=== PATIENT | female | born 1955 | race Caucasian/White ===

== ENCOUNTER 2021-10-28 10:21 | Outpatient (CLI) | payer MEDICARE, OTHER, SELFPAY ==
[2021-10-28 13:31] LABS: Albumin* 4.6 g/dL (3.3-5.0); Chloride* 105 mmol/L (96-114); Potassium* 4.6 mmol/L (3.6-5.1); Sodium* 136 mmol/L (135-149)
[2021-10-28 13:33] LABS: Carbon Dioxide* 21 mmol/L (20-32); Cholesterol* 160 mg/dL (90-199); Creatinine* 0.6 mg/dL (0.5-1.5); Estimated Glomerular Filt Rate 100 ml/min
[2021-10-28 13:34] LABS: Alanine Aminotransferase* 24 U/L (4-35); Alkaline Phosphatase* 92 U/L (40-150); Aspartate Amino Transferase* 21 U/L (12-35); Bilirubin Total* 0.4 mg/dL (0.1-1.5); Blood Urea Nitrogen* 17 mg/dL (7-30); Calcium* 10.2 mg/dL (8.4-10.6); Glucose* 102 mg/dL (60-115); Total Protein* 7.1 g/dL (6.0-8.3); Triglycerides* 214 mg/dL (40-149)
[2021-10-28 13:35] LABS: HDL Cholesterol* 50 mg/dL (>=50); LDL Cholesterol Calculated 67 mg/dL (<100)
[2021-10-28 14:07] LABS: TSH With Reflex to FT4* 0.858 uIU/mL (0.270-4.200)
[2021-10-28 14:22] LABS: Vitamin B12* 295 pg/mL (243-894)
== END 2021-10-28 10:22 | disposition home or self-care (01) ==
PROVIDERS: PCP Physician Assistant Medical; Visit Provider Physician Assistant Medical
DX: Z00.00 Encounter for general adult medical examination without abnormal findings (principal); R20.2 Paresthesia of skin; E78.5 Hyperlipidemia, unspecified; I10 Essential (primary) hypertension; Z13.29 Encounter for screening for other suspected endocrine disorder
CPT/HCPCS: 80053; 80061; 82607; 84443

== ENCOUNTER 2021-11-18 08:12 | Outpatient (CLI) | payer MEDICARE, OTHER, SELFPAY ==
[2021-11-18 13:12] LABS: Basophils Absolute Auto 0.05 K/uL (0.00-0.30); Basophils Percent Auto 0.6 % (0.0-3.0); Eosinophils Absolute Auto 0.27 K/uL (0.00-0.50); Eosinophils Percent Auto 3.2 % (0.0-7.0); Hematocrit 47.9 % (33.0-51.0); Hemoglobin* 15.4 gm/dL (12.0-16.0); Immature Granulocytes Abs Auto 0.09 K/uL (0.00-0.30); Lymphocytes Absolute Auto 2.53 K/uL (0.90-2.90); Lymphocytes Percent Auto 29.6 % (20-44); Mean Corpuscular HGB Conc 32 gm/dL (32-36); Mean Corpuscular Hemoglobin 29 pg (26-34); Mean Corpuscular Volume 89 fL (80-100); Neutrophils Absolute Auto 4.93 K/uL (1.7-7.0); Neutrophils Percent Auto 57.5 % (42.0-72.0); Platelet Count* 135 K/uL (140-440); RDW Coefficient of Variation % 14.3 % (11.5-15.5); Red Blood Count 5.38 m/uL (4.00-5.20); White Blood Count* 8.55 K/uL (4.50-11.00)
[2021-11-18 13:13] LABS: Slide Review Reflex No
== END 2021-11-18 08:13 | disposition home or self-care (01) ==
PROVIDERS: PCP Physician Assistant Medical; Visit Provider Physician Assistant Medical
DX: D69.9 Hemorrhagic condition, unspecified (principal)
CPT/HCPCS: 85025; 86703; 86803

== ENCOUNTER 2021-12-28 08:45 | Outpatient (CLI) | payer MEDICARE, OTHER, SELFPAY ==
[2021-12-28 15:09] LABS: HIV 1/2/P24 Combo Screen* Negative (Negative)
[2021-12-28 15:20] LABS: Hepatitis C Virus Antibody* Negative (Negative)
== END 2021-12-28 08:46 | disposition home or self-care (01) ==
LOC: FBOREF 09:47
PROVIDERS: PCP Physician Assistant Medical; Visit Provider Physician Assistant Medical
DX: D69.9 Hemorrhagic condition, unspecified (principal)
CPT/HCPCS: 86703; 86803

== ENCOUNTER 2022-03-03 12:04 | Outpatient (CLI) | payer MEDICARE, OTHER, SELFPAY ==
[2022-03-03 22:06] LABS: Albumin* 4.6 g/dL (3.3-5.0); Chloride* 106 mmol/L (96-114); Potassium* 4.9 mmol/L (3.6-5.1); Sodium* 142 mmol/L (135-149)
[2022-03-03 22:09] LABS: Alanine Aminotransferase* 29 U/L (4-35); Alkaline Phosphatase* 87 U/L (40-150); Aspartate Amino Transferase* 21 U/L (12-35); Bilirubin Total* 0.6 mg/dL (0.1-1.5); Blood Urea Nitrogen* 17 mg/dL (7-30); Carbon Dioxide* 28 mmol/L (20-32); Creatinine* 0.6 mg/dL (0.5-1.5); Estimated Glomerular Filt Rate 99 ml/min; Glucose* 105 mg/dL (60-115); Total Protein* 7.4 g/dL (6.0-8.3)
[2022-03-03 22:10] LABS: Calcium* 10.3 mg/dL (8.4-10.6)
== END 2022-03-03 12:05 | disposition home or self-care (01) ==
PROVIDERS: PCP Physician Assistant Medical; Visit Provider Physician Assistant Medical
DX: D69.6 Thrombocytopenia, unspecified (principal); I10 Essential (primary) hypertension
CPT/HCPCS: 80053

== ENCOUNTER 2022-11-08 10:45 | Outpatient (CLI) | payer MEDICARE, SELFPAY | END 2022-11-08 10:46 | disposition home or self-care (01) | LOC: NFLDREF 11-09 11:42 | PROVIDERS: PCP Physician Assistant Medical; Referring Provider Physician Assistant Medical; Visit Provider Physician Assistant Medical | DX: E78.5 Hyperlipidemia, unspecified (principal); I10 Essential (primary) hypertension; E66.01 Morbid (severe) obesity due to excess calories; D69.6 Thrombocytopenia, unspecified; Z13.820 Encounter for screening for osteoporosis; Z78.0 Asymptomatic menopausal state; R82.90 Unspecified abnormal findings in urine | CPT/HCPCS: 80053; 80061; 81001; 84443; 85027; 87086 ==

== ENCOUNTER 2023-06-21 09:46 | Outpatient (CLI) | payer MEDICARE, SELFPAY ==
--- OUTSIDE RECORDS SUMMARY | 2023-06-21 09:55 | XMS_ITS | Encounter Summary ---
Author Name Unknown Organization [place] Address [address] [facility] [place] [address] Care Team Providers Care Edge Burnisher Uppers Name Role Phone Nelson Chan MD Primary Care Provider + [phone] Nelson Chan MD Unavailable [phone] Sage Kincaid MD Unavailable [phone] Chris Mcdaniel PA-C Unavailable +[phone] Chris Mcdaniel PA-C Unavailable +[phone] Nelson Chan MD Unavailable [phone] Reason for Visit * Reason Onset Date Comments Symptoms 01/14/2019 Encounter Details Date Type Department Care Team (Late st Contact Info) Description 01/14/2019 [facility] [address] [address] Nelson Chan MD [address] [address] Symptoms Social History Tobacco Use Types Packs/Day Years Used Date Smoking Tobacco: Some Days Cigarettes 1 40 Started: 10/07/2012 Smokeless Tobacco: Never Alcohol Use Standard Drinks/Week Comments No 0 (1 standard drink = 0.6 oz pur e alcohol) PHQ-2 Answer Date Recorded PHQ-2 Score 0 02/13/2018 Sex and Gender Information Value Date Recorded Sex Assigned at Female 05/29/2018 3:24 PM CDT Gender Identity Female 05/29/2018 3:24 PM CDT Sexual Orientation Straight 05/29/2018 3: 25 PM CDT documented as of this encounter Plan of Treatment Not on file documented as of this encounter Visit Diagnoses Not on filedocumented in this encounter Care Teams Edge Burnisher Uppers Relationship Specialty Start Date End Date Nelson Chan MD [address] [place] [address] PCP - General 06/18/04 Nelson Chan MD [address] [place] [address] Assigned PCP 08/25/19 01/21/22 [place] [address] [facility] [address] [place] [address] Assigned Sleep Provider 11/29/1912/20 Chris Mcdaniel PA-C [address] [place] [address] Assigned Sleep Provider 04/22/20 Chris Mcdaniel PA-C [address] [place] [address] Assigned Neuroscience Provider 04/22/20 02/11/22 Nelson Chan MD [address] [place] [address] Assigned PCP 04/02/22 10/07/22 documented as of this encounter
--- OUTSIDE RECORDS SUMMARY | 2023-06-21 09:55 | XMS_ITS | Encounter Summary ---
Author Name Unknown Organization [place] Address [address] [facility] [place] [address] Care Team Providers Care Talent Recruiter Name Role Phone Nelson Chan MD Primary Care Provider + [phone] Nelson Chan MD Unavailable [phone] Sage Kincaid MD Unavailable [phone] Chris Mcdaniel PA-C Unavailable +[phone] Chris Mcdaniel PA-C Unavailable +[phone] Nelson Chan MD Unavailable [phone] Reason for Visit * Reason Onset Date Comments Patient Request 07/19/2019 [facility] for trans erik of cpap prescription and sleep study Encounter Details Date Type Department Care Team (Late st Contact Info) Description 07/19/2019 Telephone [facility] Candy Kitchen [address] [facility] [address] [place] [address] [place] [address] [facility] [address] [place] [address] Patient Request ([facility] for transfer of cpap prescription and sleep study ) Social History Tobacco Use Types Packs/Day Years [...] PM CDT documented as of this encounter Miscellaneous Notes * Telephone Encounter - Alex Pickard - 07/19/2019 1:52 PM CDT Reason for call: Other Patient called regarding (reason for call): call back and prescription Additional comments: Patient has switched insurance and is requesting her cpap supply prescription and a copy of her sleep study be sent to [facility]( ). She has most recently seen Dr. Kincaid on 05-31-18 Phone number to reach patient: Home number on file [phone] (home) Best Time: any Can we leave a detailed message on this number? YES Travel screening: Negative documented in this encounter Plan of Treatment Not on file documented as of this encounter Visit Diagnoses Not on filedocumented in this encounter Care Teams Talent Recruiter Relationship Specialty Start Date End Date Nelson Chan MD [address] [address] PCP - General 06/18/04 Nelson Chan MD [address] [place] [address] Assigned PCP 08/25/19 01/21/22 [place] [address] [place] [address] Assigned Sleep Provider 11/29/1912/20 Chris Mcdaniel PA-C [address] [place] [address] Assigned Sleep Provider 04/22/20 Chris Mcdaniel PA-C [address] [place] [address] Assigned Neuroscience Provider 04/22/20 02/11/22 Nelson Chan MD [address] [place] [address] Assigned PCP 04/02/22 10/07/22 documented as of this encounter
--- OUTSIDE RECORDS SUMMARY | 2023-06-21 09:55 | XMS_ITS | Encounter Summary ---
Author Name Unknown Organization [place] Address [address] [facility] [place] [address] Care Team Providers Care Baby Nurse Name Role Phone Nelson Chan MD Primary Care Provider + [phone] Nelson Chan MD Unavailable [phone] Chris Mcdaniel PA-C Unavailable +[phone] Chris Mcdaniel PA-C Unavailable +[phone] Nelson Chan MD Unavailable [phone] Reason for Visit * Reason Comments Medication Refill Encounter Details Date Type Department Care Team (Late st Contact Info) Description 12/31/2019 Refill [facility] [address] [address] Nelson Chan MD [address] [address] Medication Refill Social History Tobacco Use Types Packs/Day Years Used Date Smoking Tobacco: Former Cigarettes 1 40 0 10/07/2012 - 10/08/2019 Smokeless Tobacco: Never Alcohol Use Standard Drinks/Week Comments No 0 (1 standard drink = 0.6 oz pur e alcohol) PHQ-2 Answer Date Recorded PHQ-2 Score 0 08/22/2019 Sex and Gender Information Value Date Recorded Sex Assigned at Female 05/29/2018 3:24 PM CDT Gender Identity Female 05/29/2018 3:24 PM CDT Sexual Orientation Straight 05/29/2018 3: 25 PM CDT COVID-19 Exposure Response Date Recorded In the last month, have you been in contact with someone who was confirmed or suspected to have Coronavirus / COVID-19? No / Unsure 12/31/2019 5:41 PM APPLICATION HELPER documented as of this encounter Plan of Treatment Not on file documented as of this encounter Visit Diagnoses Diagnosis Tobacco abuse Tobacco use disorder documented in this encounter Care Teams Baby Nurse Relationship Specialty Start Date End Date Nelson Chan MD [address] [place] [address] PCP - General 06/18/04 Nelson Chan MD [address] [place] [address] Assigned PCP 08/25/19 01/21/22 Chris Mcdaniel PA-C [address] [place] [address] Assigned Sleep Provider 04/22/20 Chris Mcdaniel PA-C [address] [place] [address] Assigned Neuroscience Provider 04/22/20 02/11/22 Nelson Chan MD [address] [place] [address] Assigned PCP 04/02/22 10/07/22 documented as of this encounter
--- OUTSIDE RECORDS SUMMARY | 2023-06-21 09:55 | XMS_ITS | Encounter Summary ---
Author Name Unknown Organization [place] Address [address] [facility] [place] [address] Care Team Providers Care News Videotape Editor Name Role Phone Nelson Chan MD Primary Care Provider + [phone] Nelson Chan MD Unavailable + [phone] Nelson Chan MD Unavailable [phone] Nelson Chan MD Unavailable [phone] Sage Kincaid MD Unavailable [phone] Chris Mcdaniel PA-C Unavailable +[phone] Chris Mcdaniel PA-C Unavailable [phone] Nelson Chan MD Unavailable [phone] Encounter Details Date Type Department Care Team (Late st Contact Info) Description 02/09/2017 [facility] [address] [address] Nelson Chan MD [address] [address] Social History Tobacco Use Types Packs/Day Years Used Date Smoking Tobacco: Former Cigarettes 1 40 S tarted: 10/07/2012 Smokeless Tobacco: Never Alcohol Use Standard Drinks/Week Comments No 0 (1 standard drink = 0.6 oz pur e alcohol) Sex and Gender Information Value Date Recorded Sex Assigned at Female 05/29/2018 3:24 PM CDT Gender Identity Female 05/29/2018 3:24 PM CDT Sexual Orientation Straight 05/29/2018 3: 25 PM CDT documented as of this encounter Plan of Treatment Not on file documented as of this encounter Visit Diagnoses Not on filedocumented in this encounter Care Teams News Videotape Editor Relationship Specialty Start Date End Date Nelson Chan MD [address] [address] PCP - General 06/18/04 Nelson Chan MD [address] [address] PCP - Assigned PCP 02/25/13 04/10/18 Nelson Chan MD [address] [address] Assigned PCP 02/25/13 06/30/18 Nelson Chan MD [address] [place] [address] Assigned PCP 08/25/19 01/21/22 [place] [address] [place] [address] Assigned Sleep Provider 11/29/1912/20 Chris Mcdaniel PA-C [address] [facility] [place] [address] Assigned Sleep Provider 04/22/20 Chris Mcdaniel PA-C [address] [facility] [address] [place] [address] Assigned Neuroscience Provider 04/22/20 02/11/22 Nelson Chan MD [address] [address] Assigned PCP 04/02/22 10/07/22 documented as of this encounter
--- OUTSIDE RECORDS SUMMARY | 2023-06-21 09:55 | XMS_ITS | Encounter Summary ---
Author Name Unknown Organization [place] Address [address] [facility] [place] [address] Care Team Providers Care Ground Support Equipment Mechanic Name Role Phone Nelson Chan MD Primary Care Provider + [phone] Nelson Chan MD Unavailable [phone] Nelson Chan MD Unavailable [phone] Nelson Chan MD Unavailable +[phone] Sage Kincaid MD Unavailable [phone] Chris Mcdaniel PA-C Unavailable [phone] Chris Mcdaniel PA-C Unavailable [phone] Nelson Chan MD Unavailable [phone] Reason for Visit * Reason Onset Date Comments Refill Request 05/31/2015 Encounter Details Date Type Department Care Team (Late st Contact Info) Description 05/31/2015 MyC Refill [facility] [address] [address] Nelson Chan MD [address] [id number] Refill Request Social History Tobacco Use Types Packs/Day Years [...] encounter Miscellaneous Notes * Telephone Encounter - Judy Jacques CMA - 06/01/2015 11:02 AM CDTMessage from [employer]: Original authorizing provider: MD Jeanne Washington would like a refill of the following medications: varenicline (CHANTIX STARTING MONTH ) 0.5 MG X 11 & 1 MG X 42 tablet [Nelson Chan MD] Preferred pharmacy: [facility] #[id number] [place] [address] Comment: Hi I'm sorry. I asked for the wrong one. I need the starter pack. documented in this encounter Plan of Treatment Not on file documented as of this encounter Visit Diagnoses Diagnosis Tobacco abuse Tobacco use disorder documented in this encounter Care Teams Ground Support Equipment Mechanic Relationship Specialty Start Date End Date Nelson Chan MD [address] [place] [address] PCP - General 06/18/04 Nelson Chan MD [address] [address] PCP - Assigned PCP 02/25/13 04/10/18 Nelson Chan MD [address] [address] Assigned PCP 02/25/13 06/30/18 Nelson Chan MD [address] [place] [address] Assigned PCP 08/25/19 01/21/22 [place] [address] [place] [address] Assigned Sleep Provider 11/29/1912/20 Chris Mcdaniel PA-C [address] [place] [address] Assigned Sleep Provider 04/22/20 Chris Mcdaniel PA-C [address] [place] [address] Assigned Neuroscience Provider 04/22/20 02/11/22 Nelson Chan MD [address] [place] [address] Assigned PCP 04/02/22 10/07/22 documented as of this encounter
--- OUTSIDE RECORDS SUMMARY | 2023-06-21 09:55 | XMS_ITS | Encounter Summary ---
Author Name Unknown Organization [place] Address [address] [facility] [place] [address] Care Team Providers Care Advice Clerk Name Role Phone Nelson Chan MD Primary Care Provider + [phone] Nelson Chan MD Unavailable + [phone] Nelson Chan MD Unavailable [phone] Nelson Chan MD Unavailable [phone] Sage Kincaid MD Unavailable [phone] Chris Mcdaniel PA-C Unavailable +[phone] Chris Mcdaniel PA-C Unavailable +[phone] Nelson Chan MD Unavailable [phone] Reason for Visit * Reason Onset Date Comments other 03/27/2018 Ed with [place] [employer] / dme supplier for bipap machine said their is an error in the perscription; please call back to advise at [phone] Encounter Details Date Type Department Care Team (Late st Contact Info) Description 03/27/2018 Telephone [facility] [address] [facility] [address] [place] [address] [place] [address] other (Ed with [employer] / dme supplier for bipap machine said their is an error in the perscription; please call back to advise at [phone]) Social History Tobacco Use Types Packs/Day Years [...] encounter Miscellaneous Notes * Telephone Encounter - Vamsi Uribe - 03/27/2018 10:30 AM CST Reason for call: Other Patient called regarding (reason for call): Ed with [employer] / dme supplier for bipap machine said their is an error in the perscription; please call back to advise at [phone] Additional comments: Phone number to reach patient: Other phone number: [phone] Best Time: Can we leave a detailed message on this number? Not Applicable SHING AREA OPERATOR documented in this encounter Plan of Treatment Not on file documented as of this encounter Visit Diagnoses Not on filedocumented in this encounter Care Teams Advice Clerk Relationship Specialty Start Date End Date Nelson Chan MD [address] [address] PCP - General 06/18/04 Nelson Chan MD [address] [address] PCP - Assigned PCP 02/25/13 04/10/18 Nelson Chan MD [address] [place] [address], [place] [address] Assigned PCP 02/25/13 06/30/18 Nelson Chan MD [address] [place] [address] Assigned PCP 08/25/19 01/21/22 [place] [address] [place] [address] Assigned Sleep Provider 11/29/1912/20 Chris Mcdaniel PA-C [address] [place] [address] Assigned Sleep Provider 04/22/20 Chris Mcdaniel PA-C [address] [place] [address] Assigned Neuroscience Provider 04/22/20 02/11/22 Nelson Chan MD [address] [place] [address] Assigned PCP 04/02/22 10/07/22 documented as of this encounter
--- OUTSIDE RECORDS SUMMARY | 2023-06-21 09:55 | XMS_ITS | Referral Summary ---
Author Name Unknown Organization [place] Address [address] [facility] [place] [address] Care Team Providers Care Nailer Operator Name Role Phone Nelson Topete MD Primary Care Provider [phone] Allergies Active Allergy Reactions Criticality Noted Date Comments No Known Allergies 01/22/2002 Medications Medication Sig Dispensed Refills Start Date End Date Status celecoxib (CELEBREX) 200 MG capsuleIndications:Sp inal stenosis, lumbar region, without neurogenic claudication Take 1 capsule (200 mg) by mouth daily 30 capsule 11 01/01/2020 Active CHANTIX CONTINUING MONTH ANGELINA 1 MG tabletIndications:Tob acco abuse Take 1 tablet (1 mg) by mouth 2 times daily 56 tablet 12/31/2019 Active lisinopril-hydrochlor othiazide (ZESTORETIC) 10-12.5 MG tablet Take 1 tablet by mouth daily 07/20/2020 Active atorvastatin (LIPITOR) 10 MG tablet 08/03/2020 Active omeprazole (PRILOSEC) [address] capsuleIndications:Ga stroesophageal reflux disease without esophagitis TAKE 1 CAPSULE BY MOUTH DAILY 90 capsule 03/17/2021 Active Active Problems Problem Noted Date Diagnosed Date Morbid obesity 03/08/2018 Acute appendicitis 10/25/2013 Smoker 02/26/2012 THEODORE (obstructive sleep apnea) 06/01/2011 Diverticulosis of colon 06/01/2011 Advanced directives, counseling/discussion 01/12 Overview: Advance Directive Problem List Overview: Name Relationship Phone Primary Health Care Agent Alternative Health Care Agent Discussed advance care planning with patient; information given to patient to review. 01/12/2011 CARDIOVASCULAR SCREENING; LDL GOAL LESS THAN 160 12/06/2009 Menopausal and postmenopausal disorder 3 Overview: Problem list name updated by automated process. Provider to review Spinal stenosis, lumbar ofelia on, without neurogenic claudication 08/26/2002 Tobacco abuse 01/21/2002 Esophageal reflux 01/21/2002 Resolved Problems Problem Noted Date Diagnosed Date Resolved Date Acute pain of left shoulder 12/16/2019 02/27/2020 Rotator cuff impingement syn drome of left shoulder 12/16/2019 02/27/2020 Immunizations Name Administration Dates Next Due TDAP Vaccine (Adacel) 08/05/2008 Social History Tobacco Use Types Packs/Day Years Used Date Smoking Tobacco: Every Day Cigarettes 1 40 Started: 10/07/2012; Last attempted to quit: 10/08/2019 Smokeless Tobacco: Never Tobacco Cessation:Ready to Q uit: Yes; Counseling Given: Yes Alcohol Use Standard Drinks/Week Comments No 0 (1 standard drink = 0.6 oz pur e alcohol) PHQ-2 Answer Date Recorded PHQ-2 Score 0 08/22/2019 Adolescent Education Answer Date Record ed Getting School Help Needed Not on file 11/20 Sex and Gender Information Value Date Recorded Sex Assigned at Female 05/29/2018 3:24 PM CDT Gender Identity Female 05/29/2018 3:24 PM CDT Sexual Orientation Straight 05/29/2018 3: 25 PM CDT Last Filed Vital Signs Vital Sign Reading Time Taken Comments Blood Pressure 170/100 01/09/2020 2:48 PM FUR EXAMINER Pulse 100 01/09/2020 2:48 PM FUR EXAMINER Temperature 36.6 ??C (97.9 ??F) 01/09/2020 2:48 PM CS T Respiratory Rate 18 01/09/2020 2:48 PM FUR EXAMINER Oxygen Saturation 97% 01/09/2020 2:48 PM FUR EXAMINER Inhaled Oxygen Concentration - - Weight 136.1 kg (300 lb) 08/06/2020 9:00 AM CDT Height 162.6 cm (5' 4) 08/06/2020 9:00 AM CDT Body Mass Index 51.49 08/06/2020 9:00 AM CDT Plan of Treatment Not on file Procedures Procedure Name Priority Date/Time Associated Diagnosis Comments CT CHEST/ABDOMEN/PELVIS W CONTRAST Routine 01/19/2022 3:35 PM FUR EXAMINER MA SCREENING DIGITAL BILATERAL Routine 05/08/2021 10:22 PM CDT Visit for screening mammogram COLONOSCOPY Routine 01/08/2020 11:37 AM FUR EXAMINER BASIC METABOLIC PANEL STAT 02/02/2018 12:00 AM FUR EXAMINER PAP IMAGED THIN LAYER SCREEN Routine 06/06/2014 12:00 AM CDT Screening for malignant neoplasm of cervix Routine general medical examination at a [facility] care facility LIPID REFLEX TO DIRECT LDL PANEL Routine 05/30/2011 9:48 AM CDT CARDIOVASCULAR SCREENING; LDL GOAL LESS THAN 160 DX BONE DENSITY Routine 01/12/2011 Osteopenia from Last 3 Months or Most Recently Relevant to Health Maintenance Results * *MA Screening Digital Bilateral (05/08/2021 10:22 PM CDT) Anatomical Region Laterality Modality Breast Bilateral Mammography Narrative 05/10/2021 10:34 AM CDT BILATERAL FULL FIELD DIGITAL SCREENING MAMMOGRAM Performed on: 05/08/21 Compared to: 12/28/2019, 11/19/2018, 11/13/2017, and 08/07/2016 Technique: This study was evaluated with the assistance of Computer-Aided Detection. Findings: The breasts have scattered areas of fibroglandular density. ?? There is no radiographic evidence of malignancy. IMPRESSION: ACR BI-RADS Category 1: Negative RECOMMENDED FOLLOW-UP: Annual routine screening mammogram The results and recommendations of this examination will be communicated to the patient. Nelson Topete MD IMG MAMMOGRAPHY OR DERABLES * COLONOSCOPY (01/08/2020 11:37 AM FUR EXAMINER) COLONOSCOPY [facility] Patient Name: Britni Avila ?? Procedure Date: 01/08/2020 11:37 AM ? Date of : 1955 ? Admit Type: Outpatient Age: 64 ? Gender: Female Attending MD: Edmundo Mabry MD ?? Total Sedation Time: 17_minutes continuous bedside 1:1 Instrument Name: 223 - Adult Colonoscope Procedure: ?Colonoscopy Indications: ?High risk colon cancer surveillance: Personal ?history of colonic polyps Providers: ?Edmundo Mabry MD (Doctor) Referring MD: ? Medicines: ?Propofol per Anesthesia Complications: ?No immediate complications. Procedure: ?Pre-Anesthesia Assessment: ?- Prior to the procedure, a History and Physical ?was performed, and patient medications and ?allergies were reviewed. The patient is competent. ?The risks and benefits of the procedure and the ?sedation options and risks were discussed with the ?patient. All questions were answered and informed ?consent was obtained. Patient identification and ?proposed procedure were verified by the physician ?in the pre-procedure area. Mental Status ?Examination: alert and oriented. Airway ?Examination: normal oropharyngeal airway and neck ?mobility. Respiratory Examination: clear to ?auscultation. CV Examination: normal. Prophylactic ?Antibiotics: The patient does not require ?prophylactic antibiotics. Prior Anticoagulants: The ?patient has taken no previous anticoagulant or ?antiplatelet agents. ASA Grade Assessment: II - A ?patient with mild systemic disease. After reviewing ?the risks and benefits, the patient was deemed in ?satisfactory condition to undergo the procedure. ?The anesthesia plan was to use moderate sedation / ?analgesia (conscious sedation). Immediately prior ?to administration of medications, the patient was ?re-assessed for adequacy to receive sedatives. The ?heart rate, respiratory rate, oxygen saturations, ?blood pressure, adequacy of pulmonary ventilation, ?and response to care were monitored throughout the ?procedure. The physical status of the patient was ?re-assessed after the procedure. ?After obtaining informed consent, the colonoscope ?was passed under direct vision. Throughout the ?procedure, the patient's blood pressure, pulse, and ?oxygen saturations were monitored continuously. The ?Olympus Adult Colonoscope, Model # CF-KU294M, ?[place] # 223, SN # [id number] was introduced through ?the anus and advanced to the cecum, identified by ?appendiceal orifice and ileocecal valve. The ?colonoscopy was performed without difficulty. The ?patient tolerated the procedure well. The quality ?of the bowel preparation was good. ? Findings: ? The perianal and digital rectal examinations were normal. ? Two sessile polyps were found in the transverse colon. The polyps were 3 ? to 4 mm in size. These polyps were removed with a cold snare. Resection ? and retrieval were complete. Verification of patient identification for ? the specimen was done. Estimated blood loss was minimal. ? Multiple small and large-mouthed diverticula were found in the sigmoid ? colon and descending colon. ? The exam was otherwise without abnormality on direct and retroflexion ? views. ? Impression: ? - Two 3 to 4 mm polyps in the transverse colon, ?removed with a cold snare. Resected and retrieved. ?- Diverticulosis in the sigmoid colon and in the ?descending colon. ?- The examination was otherwise normal on direct ?and retroflexion views. Recommendation: ? - Await pathology results. ?- Repeat colonoscopy in 5 years for surveillance. ? Procedure Code(s): ? --- Professional --- ? 89593, Colonoscopy, flexible; with removal of tumor(s), polyp(s), or ? other lesion(s) by snare technique Diagnosis Code(s): ? --- Professional --- ? K63.5, Polyp of colon CPT copyright 2019 [employer]. All rights reserved. The codes documented in this report are preliminary and upon complaint clerk review may be revised to meet current compliance requirements. Electronically signed by Edmundo Mabry MD __ Edmundo Mabry MD 01/08/2020 1:20:03 PM I was physically present for the entire viewing portion of the exam. Edmundo Mabry MD Number of Addenda: 0 Note Initiated On: 01/08/2020 11:37 AM MRN: ?[id number] Procedure Date: ? 01/08/2020 11:37:27 AM Scope Withdrawal Time: 0 hours 7 minutes 17 seconds Total Procedure Duration: 0 hours 13 minutes 1 second Estimated Blood Loss: ? Scope In: 12:28:18 PM Scope Out: 12:41:19 PM RADIOLOGY RESULTS 01/08/2020 11:3 7 AM FUR EXAMINER Edmundo Mabry MD PROCEDURES RADIOLOGY RESULTS * (ABNORMAL) Basic metabolic panel (02/02/2018 12:00 AM FUR EXAMINER) Sodium 142 133 - 144 mmol/L 02/02/2018 12:26 AM FUR EXAMINER [facility] Potassium 3.6 3.4 - 5.3 mmol/L 02/02/2018 12:26 AM [facility] Chloride 109 94 - 109 mmol/L 02/02/2018 12:26 AM [facility] Carbon Dioxide 28 20 - 32 mmol/L 02/02/2018 12:26 AM [facility] Anion Gap 5 3 - 14 mmol/L 02/02/2018 12:26 AM [facility] Glucose 100(H) 70 - 99 mg/dL 02/02/2018 12:26 AM [facility] Urea Nitrogen 9 7 - 30 mg/dL 02/02/2018 12:26 AM [facility] Creatinine 0.59 0.52 - 1.04 mg/dL 02/02/2018 12:26 AM [facility] GFR Estimate >90 >60 mL/min/{1. 73_m2} 02/02/2018 12:26 AM [facility] Comment: Non GFR Calc Starting 01/23/2018, serum creatinine based estimated GFR (eGFR) will be calculated using the Chronic Kidney Disease Epidemiology Collaboration (CKD-EPI) equation. GFR Estimate If Black >90 >60 mL/min/{1. 73_m2} 02/02/2018 12:26 AM [facility] Comment: GFR Calc Starting 01/23/2018, serum creatinine based estimated GFR (eGFR) will be calculated using the Chronic Kidney Disease Epidemiology Collaboration (CKD-EPI) equation. Calcium 9.2 8.5 - 10.1 mg/dL 02/02/2018 12:26 AM [facility] Blood specimen (specimen) 02/02/2018 02/02/2018 12:01 AM FUR EXAMINER [facility] KENDR[facility] LAB - BLOOD ORDER TRANG [facility] Robin E Taylor [place] [id number] [phone] * PAP IMAGED THIN LAYER SCREEN (06/06/2014 12:00 AM CDT) PAP NIL COPATH Copath Report Patient Name: BRITNI AVILA MR#: [id number] Specimen #: [id number] Collected: 06/06/2014 Received: 06/09/2014 Reported: 06/11/2014 13:53 Ordering Phy(s): NELSON TOPETE SPECIMEN/STAIN PROCESS: Pap imaged thin layer prep screening (Surepath, FocalPoint with guided screening) ? Pap-Cyto x 1, Reflex HPV if NIL/ASCUS/LSIL x 1 SOURCE: Cervical, endocervical Pap imaged thin layer prep screening (Surepath, FocalPoint with guided screening) SPECIMEN ADEQUACY: Satisfactory for evaluation. -Transformation zone component absent. CYTOLOGIC INTERPRETATION: Negative for Intraepithelial Lesion or Malignancy ? Other Non-Neoplastic Findings: Reactive cellular changes associated with: -inflammation (includes typical repair). Electronically signed out by: Edson Coyle M.D. Processed and screened at [facility], [facility] CLINICAL HISTORY: LMP: 07/08/03 Post Menopausal, Previous normal pap Date of Last Pap: 01/12/11, Papanicolaou Test Limitations: ??Cervical cytology is a screening test with limited sensitivity; regular screening is critical for cancer prevention; Pap tests are primarily effective for the diagnosis/preventi on of squamous cell carcinoma, not adenocarcinomas or other cancers. TESTING LAB LOCATION: [address] ??[id number] COLLECTION SITE: Client: ??[facility] Location: OXIM (S) COPATH Cytologic material (specimen) 06/06/2014 06/09/2014 10:13 AM CDT Nelson Topete MD LAB - [facility] SPECIMEN COPATH * (ABNORMAL) Lipid panel reflex to direct LDL (05/30/2011 9:48 AM CDT) Cholesterol 208(H) 0 - 200 mg/dL [facility] Comment: LDL Cholesterol is the primary guide to therapy. The NCEP recommends further evaluation of: patients with cholesterol greater than 200 mg/dL if additional risk factors are present, cholesterol greater than 240 mg/dL, triglycerides greater than 150 mg/dL, or HDL less than 40 mg/dL. Triglycerides 195(H) 0 - 150 mg/dL [facility] HDL Cholesterol 47(L) 50 - 110 mg/dL [facility] LDL Cholesterol Calculated 122 0 - 129 mg/dL [facility] Comment: LDL Cholesterol is the primary guide to therapy: LDL-cholesterol goal in high risk patients is <100 mg/dL and in very high risk patients is <70 mg/dL. VLDL-Cholesterol 39(H) 0 - 30 mg/dL [facility] Cholesterol/HDL Ratio 4.4 0.0 - 5.0 [facility] Blood specimen (specimen) 05/30/2011 9:48 AM CDT 05/30/2011 9:53 AM CDT Nelson Topete MD LAB - BLOOD ORDERA BLES [facility] * Dexa hip/pelvis/spine* (01/12/2011) Anatomical Region Laterality Modality Dexa Other Impressions 01/12/[address] [facility] [address] [address] 01/12/2011 Patient: ??Britni Avila Chart: [id number] : ??1955 Age: ??55 year old Sex: ??female Referring provider: ??CINTHYA TOPETE Procedure: ??Bone density scanning was performed using DEXA technology performed on a Zipano scanner. ??Reporting is completed in the form of a T-score. ?? The T-score represents the standard deviation from peak bone mass based on a young healthy adult. Extrusion Die Template Maker performing scan: ??Nuria Cruz Reference T-Scores: ? Normal ?Greater than -1.0 ? Osteopenia ?-1.0 to -2.5 ? Osteoporosis ?Less than -2.5 NOF guidelines recommend treatment for patients with a T-score of -1.5 or less with risk factors or -2.0 or less without risk factors. Risk Factors: ??Post-menopausal, Family history of osteoporosis, Follow-up osteopenia, Tobacco abuse Current Treatment: ??None listed Findings: ? Lumbar Spine (L1-L4): ??T-score -0.7 ?? Significant degenerative and osteosclerotic changes are present, falsely improving result. ? Left Femoral Neck: ??T-score -1.5 ? Right Femoral Neck: ??T-score -1.2 ? Comparison is made to bone densitometry performed on the same [employer] machine on 07/14. ??In the interim, there is the suggestion of a possible trend towards worsening of the lumbar spine, and no significant change of the femoral neck. Impression: Osteopenia (low bone mass) Suggest verification of adequate calcium and vitamin D intake. Dexa scan read and electronically signed by Tenzin Mcgrath M.D. Electronically filed by Zack Altamirano ??02/02/2011 ??3:05 PM Nelson Topete MD IMG DEXA ORDERABLE S from Last 3 Months or Most Recently Relevant to Health Maintenance Advance Directives For more information, please contact: [phone] * Full Code (Latest Code Status on File) Date Activated Date Inactivated Comments 10/25/2013 6:13 PM 10/26/2013 12:50 PM Care Teams Nailer Operator Relationship Specialty Start Date End Date Nelson Topete MD [address] [place] [address] PCP - General 06/18/04
--- OUTSIDE RECORDS SUMMARY | 2023-06-21 09:55 | XMS_ITS | Encounter Summary ---
Author Name Unknown Organization [place] Address [address] [place] [address] Care Team Providers Care Shake Feeder Name Role Phone Nelson Chan MD Primary Care Provider +- [phone] Nelson Chan MD Unavailable [phone] Chris Mcdaniel PA-C Unavailable [phone] Nelson Chan MD Unavailable [phone] Encounter Details Date Type Department Care Team (Late st Contact Info) Description 07/30/2020 [facility] Medical Advice [facility] [address] [place] [address] Chris Mcdaniel PA-C [address] [address] Social History Tobacco Use Types Packs/Day Years [...] on filedocumented in this encounter Care Teams Shake Feeder Relationship Specialty Start Date End Date Nelson Chan MD [address] [place] [address] PCP - General 06/18/04 Nelson Chan MD [address] [address] Assigned PCP 08/25/19 01/21/22 Chris Mcdaniel PA-C [address] [address] Assigned Neuroscience Provider 04/22/20 02/11/22 Nelson Chan MD [address] [address] Assigned PCP 04/02/22 10/07/22 documented as of this encounter
--- OUTSIDE RECORDS SUMMARY | 2023-06-21 09:55 | XMS_ITS | Encounter Summary ---
Author Name Unknown Organization [place] Address [address] [facility] [place] [address] Care Team Providers Care Perinatal Director Name Role Phone Nelson Chan MD Primary Care Provider + [phone] Nelson Chan MD Unavailable [phone] Chris Mcdaniel PA-C Unavailable [phone] Nelson Chan MD Unavailable [phone] Reason for Visit * Reason Comments Sleep Problem Encounter Details Date Type Department Care Team (Late st Contact Info) Description 09/22/2021 Orders Only [facility] [place] [address] [facility] [address] [place] [address] Chris Mcdaniel PA-C [address] [facility] [address] [place] [address] Obstructive sleep apnea (adult) (pediatric) (Primary Dx) Social History Tobacco Use Types Packs/Day Years Used Date Smoking Tobacco: Every Day Cigarettes 1 40 Started: 10/07/2012; Last attempted to quit: 10/08/2019 Smokeless Tobacco: Never Alcohol Use Standard [...] as of this encounter Visit Diagnoses Diagnosis Obstructive sleep apnea (adult) (pediatric)- Primary documented in this encounter Care Teams Perinatal Director Relationship Specialty Start Date End Date Nelson Chan MD [address] [place] [address] PCP - General 06/18/04 Nelson Chan MD [address] [place] [address] Assigned PCP 08/25/19 01/21/22 Chris Mcdaniel PA-C [address] [address] Assigned Neuroscience Provider 04/22/20 02/11/22 Nelson Chan MD [address] [place] [address] Assigned PCP 04/02/22 10/07/22 documented as of this encounter
--- OUTSIDE RECORDS SUMMARY | 2023-06-21 09:55 | XMS_ITS | Encounter Summary ---
Author Name Unknown Organization [place] Address [address] [facility] [place] [address] Care Team Providers Care Health Information Technologist Name Role Phone Nelson Chan MD Primary Care Provider + [phone] Nelson Chan MD Unavailable [phone] Nelson Chan MD Unavailable [phone] Nelson Chan MD Unavailable [phone] Sage Kincaid MD Unavailable [phone] Chris Mcdaniel PA-C Unavailable [phone] Chris Mcdaniel PA-C Unavailable [phone] Nelson Chan MD Unavailable [phone] Reason for Visit * Reason Onset Date Comments Refill Request 05/29/2015 Encounter Details Date Type Department Care Team (Late st Contact Info) Description 05/29/2015 MyC Refill [facility] [address] [address] Nelson Chan MD [address] [id number] Refill Request Social History Tobacco Use Types [...] encounter Miscellaneous Notes * Telephone Encounter - Triny Murillo RN - 05/29/2015 6:59 AM CDT Last office visit 06/20 * Telephone Encounter - Triny Murillo RN - 05/29/2015 6:59 AM CDTMessage from [email or web address]: Original authorizing provider: MD Jeanne Washington would like a refill of the following medications: varenicline (CHANTIX) 1 MG tablet [Nelson Chan MD] Preferred pharmacy: [facility] #[id number] [place] [address] Comment: documented in this encounter Plan of Treatment Not on file documented as of this encounter Visit Diagnoses Diagnosis Tobacco abuse Tobacco use disorder documented in this encounter Care Teams Health Information Technologist Relationship Specialty Start Date End Date Nelson Chan MD [address] [place] [address] PCP - General 06/18/04 Nelson Chan MD [address] [place] [address] PCP - Assigned PCP 02/25/13 04/10/18 Nelson Chan MD [address] [place] [address] Assigned PCP 02/25/13 06/30/18 Nelson Chan MD [address] [place] [address] Assigned PCP 08/25/19 01/21/22 [place] [address] [address] [place] [address] Assigned Sleep Provider 11/29/1912/20 Chris Mcdaniel PA-C [address] [place] [address] Assigned Sleep Provider 04/22/20 Chris Mcdaniel PA-C [address] [facility] [address] [place] [address] Assigned Neuroscience Provider 04/22/20 02/11/22 Nelson Chan MD [address] [place] [address] Assigned PCP 04/02/22 10/07/22 documented as of this encounter
--- OUTSIDE RECORDS SUMMARY | 2023-06-21 09:55 | XMS_ITS | Encounter Summary ---
Author Name Unknown Organization [place] Address [address] [facility] [place] [address] Care Team Providers Care Die Casting Supervisor Name Role Phone Nelson Chan MD Primary Care Provider + [phone] Nelson Chan MD Unavailable [phone] Sage Kincaid MD Unavailable [phone] Chris Mcdaniel PA-C Unavailable [phone] Chris Mcdaniel PA-C Unavailable [phone] Nelson Chan MD Unavailable [phone] Reason for Visit * Reason Onset Date Comments Appointment 07/30/2019 Please switch ap poitment to phone visit Encounter Details Date Type Department Care Team (Late st Contact Info) Description 07/30/2019 Telephone [facility] [place] [address] [address] Chris Mcdaniel PA-C [address] [address] Appointment (Please switch appoitment to phone visit ) Social History Tobacco Use Types Packs/Day [...] encounter Miscellaneous Notes * Telephone Encounter - Tony Rosales - 07/30/2019 9:21 AM CDT Reason for call: Other Patient called regarding (reason for call): appointment Additional comments: Patient does not have access to device with camera and speaker capability . Please switch visit to phone appt Phone number to reach patient: Home number on file [phone] (home) Best Time: any Can we leave a detailed message on this number? YES Travel screening: Not Applicable documented in this encounter Plan of Treatment Not on file documented as of this encounter Visit Diagnoses Not on filedocumented in this encounter Care Teams Die Casting Supervisor Relationship Specialty Start Date End Date Nelson Chan MD [address] [place] [address] PCP - General 06/18/04 Nelson Chan MD [address] [place] [address] Assigned PCP 08/25/19 01/21/22 [place] [address] [place] [address] Assigned Sleep Provider 11/29/1912/20 Chris Mcdaniel PA-C [address] [place] [address] Assigned Sleep Provider 04/22/20 Crhis Mcdaniel PA-C [address] [address] Assigned Neuroscience Provider 04/22/20 02/11/22 Nelson Chan MD [address] [address] Assigned PCP 04/02/22 10/07/22 documented as of this encounter
--- OUTSIDE RECORDS SUMMARY | 2023-06-21 09:55 | XMS_ITS | Encounter Summary ---
Author Name Unknown Organization [place] Address [address] [facility] [place] [address] Care Team Providers Care Warehouse Helper Name Role Phone Nelson Chan MD Primary Care Provider [phone] Nelson Chan MD Unavailable [phone] Encounter Details Date Type Department Care Team (Late st Contact Info) Description 04/04/2022 [facility] Medical Advice [facility] [address] [place] [address] Chris Mcdaniel PA-C [address] [id number] Social History Tobacco Use Types Packs/Day Years [...] on filedocumented in this encounter Care Teams Warehouse Helper Relationship Specialty Start Date End Date Nelson Chna MD [address] [place] [address] PCP - General 06/18/04 Nelson Chan MD [address] [place] [address] Assigned PCP 04/02/22 10/07/22 documented as of this encounter
--- OUTSIDE RECORDS SUMMARY | 2023-06-21 09:55 | XMS_ITS | Encounter Summary ---
Author Name Unknown Organization [place] Address [address] [facility] [place] [address] Care Team Providers Care Italian Lecturer Name Role Phone Nelson Chan MD Primary Care Provider [phone] Nelson Chan MD Unavailable [phone] Chris Mcdanile PA-C Unavailable +[phone] Nelson Chan MD Unavailable [phone] Encounter Details Date Type Department Care Team (Late st Contact Info) Description 12/25/2020 [facility] Medical Advice [address] [address] Nelson Chan MD [address] [place] [address] Social History Tobacco Use Types Packs/Day [...] on filedocumented in this encounter Care Teams Italian Lecturer Relationship Specialty Start Date End Date Nelson Chan MD [address] [place] [address] PCP - General 06/18/04 Nelson Chan MD [address] [place] [address] Assigned PCP 08/25/19 01/21/22 Chris Mcdaniel PA-C [address] [address] Assigned Neuroscience Provider 04/22/20 02/11/22 Nelson Chan MD [address] [place] [address] Assigned PCP 04/02/22 10/07/22 documented as of this encounter
--- OUTSIDE RECORDS SUMMARY | 2023-06-21 09:55 | XMS_ITS | Encounter Summary ---
Author Name Unknown Organization [place] Address [address] [facility] [place] [address] Care Team Providers Care Dyno Technician Name Role Phone Nelson Chan MD Primary Care Provider +- [phone] Nelson Chan MD Unavailable [phone] Chris Mcdaniel PA-C Unavailable [phone] Nelson Chan MD Unavailable [phone] Reason for Visit * Reason Comments Medication Refill Encounter Details Date Type Department Care Team (Late st Contact Info) Description 12/22/2020 Refill [facility] [address] [phone] Nelson Chan MD [address] [place] [address] Medication Refill Social History Tobacco Use Types [...] as of this encounter Visit Diagnoses Diagnosis Gastroesophageal reflux disease without esophagitis Esophageal reflux documented in this encounter Care Teams Dyno Technician Relationship Specialty Start Date End Date Nelson Chan MD [address] [place] [address] PCP - General 06/18/04 Nelson Chan MD [address] [place] [address] Assigned PCP 08/25/19 01/21/22 Chris Mcdaniel PA-C [address] [address] Assigned Neuroscience Provider 04/22/20 02/11/22 Nelson Chan MD [address] [place] [address] Assigned PCP 04/02/22 10/07/22 documented as of this encounter
--- OUTSIDE RECORDS SUMMARY | 2023-06-21 09:55 | XMS_ITS | Clinical Summary ---
Author Name Unknown Organization [place] Address [address] [facility] [place] [address] Care Team Providers Care Distillery Supervisor Name Role Phone Nelson Topete MD Primary Care Provider [phone] Allergies Active Allergy Reactions Criticality Noted Date [...] Dates Next Due TDAP Vaccine (Adacel) 08/05/2008 Family History Medical History Relation Comments Cancer Father type unknown; d: age 81, ? bladder Hypertension Mother Respiratory Mother COPD; d: age 74 Breast Cancer No family hx of C.A.D. No family hx of Cancer - colorectal No family hx of Cerebrovascular Disease No family hx of Diabetes No family hx of Relation Status Comments Father Mother Social History Tobacco Use Types Packs/Day Years [...] Comments Blood Pressure 170/100 01/09/2020 2:48 PM NEONATAL SPECIALIST Pulse 100 01/09/2020 2:48 PM NEONATAL SPECIALIST Temperature 36.6 ??C (97.9 ??F) 01/09/2020 2:48 PM CS T Respiratory Rate 18 01/09/2020 2:48 PM NEONATAL SPECIALIST Oxygen Saturation 97% 01/09/2020 2:48 PM NEONATAL SPECIALIST Inhaled Oxygen Concentration - - Weight 136.1 kg (300 lb) 08/06/2020 9:00 AM CDT Height 162.6 cm (5' 4) 08/06/2020 9:00 AM CDT Body Mass Index 51.49 08/06/2020 9:00 AM CDT Plan of Treatment Health Maintenance Due Date Last Done Comments ANNUAL REVIEW OF HM ORDERS 1955 CT COLONOGRAPHY 1955 FIT 1955 FLEX SIG 1955 sDNA (Cologuard) 1955 Pneumococcal Vaccine: 65+ Years (1 of 2 - PCV) 11/21/1961 HEPATITIS C SCREENING 11/21/1973 ZOSTER IMMUNIZATION (1 of 2) 11/21/2005 DEXA 01/12/2014 01/12/2011, 07/07, 12/18/2002 RSV VACCINE ( & 60+) (1 - 1-dose 60+ series) 2015 ADVANCE CARE PLANNING 01/13/2016 01/12/2011, 011 LIPID 05/29/2016 05/30/2011, 10/08, 07/20/2007, Additional history exists DTAP/TDAP/TD IMMUNIZATION (2 - Td or Tdap) 08/05/2018 08/05/2008, 10/23/1997 EYE EXAM 04/08/2020 04/09/2019 FALL RISK ASSESSMENT 11/21/2020 MEDICARE ANNUAL WELLNESS VISIT 11/21/2020 06/06/2014, 04/01/2013, 01/27/2012, Additional history exists GLUCOSE 02/02/2021 02/02/2018, 11/08, 10/16/2015, Additional history exists MAMMO SCREENING 05/08/2022 05/08/2021, 12/08, 11/19/2018, Additional history exists COVID-19 Vaccine ( - season) 2022 LUNG CANCER SCREENING 01/19/2023 01/19/2022 PHQ-2 (once per calendar year) 2023 08/22/2019, 07/01/2015 INFLUENZA VACCINE (Season Ended) 2023 COLONOSCOPY 01/07/2025 01/08/2020, 03/2019, 05/07/2013, Additional history exists COLORECTAL CANCER SCREENING 01/07/2025 PAP Discontinued 06/06/2014, 08/2010, 11/02/2009, Additional history exists HPV IMMUNIZATION Aged Out No longer e ligible based on patient's age to complete this topic IPV IMMUNIZATION Aged Out No longer e ligible based on patient's age to complete this topic MENINGITIS IMMUNIZATION Aged Out No l onger eligible based on patient's age to complete this topic RSV MONOCLONAL ANTIBODY Aged Out No l onger eligible based on patient's age to complete this topic Procedures Procedure Name Priority Date/Time Associated Diagnosis Comments CT CHEST/ABDOMEN/PELVIS W CONTRAST Routine 01/19/2022 3:35 PM NEONATAL SPECIALIST MA SCREENING DIGITAL BILATERAL Routine 05/08/2021 10:22 PM CDT Visit for screening mammogram COLONOSCOPY Routine 01/08/2020 11:37 AM NEONATAL SPECIALIST BASIC METABOLIC PANEL STAT 02/02/2018 12:00 AM NEONATAL SPECIALIST PAP IMAGED THIN LAYER SCREEN Routine 06/06/2014 12:00 AM CDT Screening for malignant neoplasm of cervix Routine general medical examination at a health care facility LIPID REFLEX TO DIRECT LDL [...] OR DERABLES * COLONOSCOPY (01/08/2020 11:37 AM NEONATAL SPECIALIST) [facility] COLONOSCOPY [facility] Patient Name: Britni Avila ?? Procedure [...] continuously. The ?Olympus Adult Colonoscope, Model # CF-ZB178J, ?[place]ora # 223, SN # [id number] was introduced through ?the anus and advanced [...] Procedure Code(s): ? --- Professional --- ? 30654, Colonoscopy, flexible; with removal of tumor(s), polyp(s), or ? other lesion(s) by snare technique Diagnosis Code(s): ? --- Professional --- ? K63.5, Polyp of colon CPT copyright 2019 [employer]. All rights reserved. The codes documented in this report are preliminary and upon certified medical records coder review may be revised to meet current compliance requirements. Electronically signed by Edmundo Mabry MD __ Edmundo Mabry MD 01/08/2020 1:20:03 PM I was physically present for the entire viewing portion of the exam. Edmundo Mabry MD Number of Addenda: 0 Note Initiated On: 01/08/2020 11:37 AM MRN: ?[id number] Procedure Date: ? 01/08/2020 11:37:27 AM Scope Withdrawal Time: 0 hours 7 minutes 17 seconds Total Procedure Duration: 0 hours 13 minutes 1 second Estimated Blood Loss: ? Scope In: 12:28:18 PM Scope Out: 12:41:19 PM RADIOLOGY RESULTS 01/08/2020 11:3 7 AM NEONATAL SPECIALIST Edmundo Mabry MD PROCEDURES RADIOLOGY RESULTS * (ABNORMAL) Basic metabolic panel (02/02/2018 12:00 AM NEONATAL SPECIALIST) Sodium 142 133 - 144 mmol/L 02/02/2018 12:26 AM [facility] Potassium 3.6 3.4 - 5.3 mmol/L 02/02/2018 12:26 AM [facility] Chloride 109 94 - 109 mmol/L 02/02/2018 12:26 AM [facility] Carbon Dioxide 28 20 - 32 mmol/L 02/02/2018 12:26 AM [facility] Anion Gap 5 3 - 14 mmol/L 02/02/2018 12:26 AM [facility] Glucose 100(H) 70 - 99 mg/dL 02/02/2018 12:26 AM [facility] Urea Nitrogen 9 7 - 30 mg/dL 02/02/2018 12:26 AM [facility] Creatinine 0.59 0.52 - 1.04 mg/dL 02/02/2018 12:26 AM [facility] GFR Estimate >90 >60 mL/min/{1. 73_m2} 02/02/2018 12:26 AM [facility] Comment: Non GFR Calc Starting 01/23/2018, serum creatinine based estimated GFR (eGFR) will be calculated using the Chronic Kidney Disease Epidemiology Collaboration (CKD-EPI) equation. GFR Estimate If Black >90 >60 mL/min/{1. 73_m2} 02/02/2018 12:26 AM [facility] Comment: GFR Calc Starting 01/23/2018, serum creatinine based estimated GFR (eGFR) will be calculated using the Chronic Kidney Disease Epidemiology Collaboration (CKD-EPI) equation. Calcium 9.2 8.5 - 10.1 mg/dL 02/02/2018 12:26 AM [facility] Blood specimen (specimen) 02/02/2018 02/02/2018 12:01 AM NEONATAL SPECIALIST Mir[facility]ENDR[facility] - BLOOD ORDER [facility] [place] [address], [facility] [phone] * PAP IMAGED THIN LAYER SCREEN (06/06/2014 12:00 AM CDT) PAP NIL COPATH Copath Report Patient Name: BRITNI AVILA MR#: [id number] Specimen #: [id number] Collected: 06/06/2014 Received: 06/09/2014 Reported: 06/11/2014 13:53 [...] (includes typical repair). Electronically signed out by: Esdon Coyle M.D. Processed and screened at [facility], [facility] CLINICAL HISTORY: LMP: 07/08/03 Post Menopausal, Previous normal pap Date of Last Pap: 01/12/11, Papanicolaou Test Limitations: ??Cervical cytology is a screening test with limited sensitivity; regular screening is critical for cancer prevention; Pap tests are primarily effective for the diagnosis/preventi on of squamous cell carcinoma, not adenocarcinomas or other cancers. TESTING LAB LOCATION: [facility] [address] [place] [address] ??[id number] COLLECTION SITE: Client: ??[facility] Location: OXIM (S) COPATH Cytologic material (specimen) 06/06/2014 06/09/2014 10:13 AM CDT Nelson Topete MD LAB - [facility] SPECIMEN Performing Organization Address [facility]/ZIP Co de Phone Number COPATH * (ABNORMAL) Lipid panel reflex to direct LDL (05/30/2011 9:48 AM CDT) Cholesterol 208(H) 0 - 200 mg/dL [facility] Comment: LDL Cholesterol is the primary guide to therapy. The NCEP recommends further evaluation of: patients with cholesterol greater than 200 mg/dL if additional risk factors are present, cholesterol greater than 240 mg/dL, triglycerides greater than 150 mg/dL, or HDL less than 40 mg/dL. Triglycerides 195(H) 0 - 150 mg/dL [facility] HDL Cholesterol 47(L) 50 - 110 mg/dL [facility] LDL Cholesterol Calculated 122 0 - 129 mg/dL [facility] Comment: LDL Cholesterol is the primary guide to therapy: LDL-cholesterol goal in high risk patients is <100 mg/dL and in very high risk patients is <70 mg/dL. VLDL-Cholesterol 39(H) 0 - 30 mg/dL [facility] Cholesterol/HDL Ratio 4.4 0.0 - 5.0 [facility] Blood specimen (specimen) 05/30/2011 9:48 AM CDT 05/30/2011 9:53 AM CDT Nelson Topete MD LAB - BLOOD ORDERA BLES Performing Organization Address City/[facility]/ZIP Co de Phone Number [facility] * Dexa hip/pelvis/spine* (01/12/2011) Anatomical Region Laterality Modality Dexa Other Impressions 01/12/2011 BONE DENSIT[address]RY [address] [address] 01/12/2011 Patient: ??Britni Avila Chart: [id number] : ??1955 Age: ??55 year old Sex: ??female Referring provider: ??CINTHYA TOPETE Procedure: ??Bone density scanning was performed using DEXA technology performed on a [employer] scanner. ??Reporting is completed in the form of a T-score. ?? The T-score represents the standard deviation from peak bone mass based on a young healthy adult. Medical Insurance Coder performing scan: ??Nuria Cruz Reference T-Scores: ? [...] to bone densitometry performed on the same Lunar machine on 07/14. ??In the interim, there [...] Advance Directives For more information, please contact: [phone] * Full Code (Latest Code Status on File) Date Activated Date Inactivated Comments 10/25/2013 6:13 PM 10/26/2013 12:50 PM Care Teams Distillery Supervisor Relationship Specialty Start Date End Date Nelson Topete MD [address] [place] [address] PCP - General 06/18/04
--- OUTSIDE RECORDS SUMMARY | 2023-06-21 09:55 | XMS_ITS | Encounter Summary ---
Author Name Unknown Organization [place] Address [address] [facility] [place] [address] Care Team Providers Care Palletizer Operator Name Role Phone Nelson Chan MD Primary Care Provider [phone] Nelson Chan MD Unavailable [phone] Chris Mcdaniel PA-C Unavailable [phone] Nelson Chan MD Unavailable [phone] Encounter Details Date Type Department Care Team (Late st Contact Info) Description 09/28/2020 [facility] Medical Advice [address] [address] Nelson Chan MD [address] [place] [address] Social History Tobacco Use Types Packs/Day [...] on filedocumented in this encounter Care Teams Palletizer Operator Relationship Specialty Start Date End Date Nelson Chan MD [address] [place] [address] PCP - General 06/18/04 Nelson Chan MD [address] [place] [address] Assigned PCP 08/25/19 01/21/22 Chris Mcdaniel PA-C [address] [address] Assigned Neuroscience Provider 04/22/20 02/11/22 Nelson Chan MD [address] [place] [address] Assigned PCP 04/02/22 10/07/22 documented as of this encounter
--- OUTSIDE RECORDS SUMMARY | 2023-06-21 09:55 | XMS_ITS | Encounter Summary ---
Author Name Unknown Organization [place] Address [address] [place] [address] Care Team Providers Care Cash Grain Farmer Name Role Phone Nelson Chan MD Primary Care Provider + [phone] Nelson Chan MD Unavailable [phone] Chris Mcdaniel PA-C Unavailable [phone] Nelson Chan MD Unavailable [phone] Reason for Visit * Reason Onset Date Comments Refill Request 03/15/2021 Encounter Details Date Type Department Care Team (Late st Contact Info) Description 03/15/2021 MyC Refill [facility] [address] [address] Nelson Chan MD [address] [id number] Refill Request Social History Tobacco Use Types [...] encounter Miscellaneous Notes * Telephone Encounter - Mary Swain RN - 03/17/2021 1:17 PM CST This refill is a duplicate of something already sent to the pharmacy or another refill already in process. Mary Swain RN [facility] GING OPERATOR documented in this encounter Plan of Treatment Not on file documented as of this encounter Visit Diagnoses Diagnosis Gastroesophageal reflux disease without esophagitis Esophageal reflux documented in this encounter Care Teams Cash Grain Farmer Relationship Specialty Start Date End Date Nelson Chan MD [address] [address] PCP - General 06/18/04 Nelson Chan MD [address] [place] [address] Assigned PCP 08/25/19 01/21/22 Chris Mcdaniel PA-C [address] [phone] Assigned Neuroscience Provider 04/22/20 02/11/22 Nelson Chan MD [address] [place] [address] Assigned PCP 04/02/22 10/07/22 documented as of this encounter
--- OUTSIDE RECORDS SUMMARY | 2023-06-21 09:56 | XMS_ITS | Encounter Summary ---
Author Name Unknown Organization [place] Address [address] [facility] [place] [address] Care Team Providers Care Visitor Services Specialist Name Role Phone Nelson Chan MD Primary Care Provider + [phone] Nelson Chan MD Unavailable [phone] Nelson Chan MD Unavailable [phone] Nelson Chan MD Unavailable [phone] Sage Kincaid MD Unavailable [phone] Chris Mcdaniel PA-C Unavailable [phone] Chris Mcdaniel PA-C Unavailable [phone] Nelson Chan MD Unavailable [phone] Encounter Details Date Type Department Care Team (Late st Contact Info) Description 01/25/2011 [facility] [address] [address] Nelson Chan MD [address] [address] Social History Tobacco Use Types Packs/Day Years Used Date Smoking Tobacco: Every Day Cigarettes 1 30 Alcohol Use Standard Drinks/Week Comments No 0 [...] on filedocumented in this encounter Care Teams Visitor Services Specialist Relationship Specialty Start Date End Date Nelson Chan MD [address] [address] PCP - General 06/18/04 Nelson Chan MD [address] [place] [address] PCP - Assigned PCP 02/25/13 04/10/18 Nelson Chan MD [address] [place] [address] Assigned PCP 02/25/13 06/30/18 Nelson Chan MD [address] [address] Assigned PCP 08/25/19 01/21/22 [place] [address] [address] Assigned Sleep Provider 11/29/1912/20 Chris Mcdaniel PA-C [address] [address] Assigned Sleep Provider 04/22/20 Chris Mcdaniel PA-C [address] [facility] [address] [address] Assigned Neuroscience Provider 04/22/20 02/11/22 Nelson Chan MD [address] [address] Assigned PCP 04/02/22 10/07/22 documented as of this encounter
--- OUTSIDE RECORDS SUMMARY | 2023-06-21 09:56 | XMS_ITS | Clinical Summary ---
Author Name Unknown Organization [employer] [facility] Address [place], [place] [address] Care Team Providers Care Valet Parking Attendant Name Role Phone Thea Huggins PA-C Primary Care Provider + [phone] Allergies No known active allergies Medications Medication Sig Dispensed Refills Start Date End Date Status ondansetron (ZOFRAN ODT) 4 mg disintegrating tabletIndications:COV ID-19 Place 1 Tablet (4 mg) on the tongue every 8 hours if needed for Nausea/Vomiting. 15 Tablet 01/19/2022 Active loperamide (IMODIUM) 2 mg capsuleIndications:Di arrhea, unspecified type Take 4mg by mouth with 1st loose stool, then 2mg with each subsequent loose stool. Max 16 mg in 24 hrs 12 Capsule 01/19/2022 Active atorvastatin (LIPITOR) 10 mg tablet Take 10 mg by mouth once daily in the evening. 11/23/2021 Active celecoxib (CELEBREX) 200 mg capsule Take 200 mg by mouth once daily with a meal. 01/13/2022 Active lisinopril-hydrochlor othiazide (10-12.5 mg) tablet (PRINZIDE; ZESTORETIC) Take 1 Tablet by mouth once daily. 11/29/2021 Active omeprazole (PRILOSEC) 20 mg Delayed-Release capsule Take 20 mg by mouth once daily before a meal. 11/29/2021 Active albuterol-ipratropium (DUONEB) (2.5-0.5 mg) in 3 mL NEBULIZATION solutionIndications:C OPD with acute exacerbation (HC) Inhale 3 mL via a nebulizer 4 times daily. 120 mL 01/22/2022 Active benzonatate (TESSALON) 100 mg capsuleIndications:CO VID-19 Take 1 Capsule (100 mg) by mouth 3 times daily if needed for Cough. 21 Capsule 01/22/2022 Active NebulizerIndications: COPD with acute exacerbation (HC) Nebulizer, disposable neb kit x 4, reuseable neb kit x 1, mask x 1, filters x 1. Frequency of use: daily; Length of need: 99 months 1 Each 01/22/2022 Active meclizine (ANTIVERT) 25 mg tabletIndications:Ort hostatic lightheadedness Take 1 Tablet (25 mg) by mouth 3 times daily if needed for Vertigo. 20 Tablet 04/07/2023 Active Active Problems Problem Noted Date Diagnosed Date Hypotension 01/21/2022 COVID-19 01/19/2022 Hypoxia 01/19/2022 Hypokalemia 01/19/2022 GERD (gastroesophageal reflux disease) Hypertension 01/19/2022 Hyperlipidemia 01/19/2022 Diarrhea due to COVID-19 01/19/2022 COPD with acute exacerbation 01/19/2022 Morbid obesity 03/08/2018 THE[place]ORE (obstructive sleep apnea) 06/01/2011 Tobacco abuse 01/21/2002 Encounters Date Type Department Care Team Description 04/07/2023 9:56 AM FLYING SHEAR OPERATOR - 04/07/2023 1:47 PM [facility] Emergency [address] [address] Andrea Kim DO Orthostatic lightheadedness (Primary Dx); Chronic neck pain Discharge Disposition: Home Self Care 04/07/2023 Travel from Last 3 Months Family History Medical History Relation Name Comments Cancer Father bladder Diabetes type II Father COPD Mother Hypertension Mother Relation Name Status Comments Father Mother Social History Tobacco Use Types Packs/Day Years Used Date Smoking Tobacco: Every Day Cigarettes 0.5 50 Tobacco Cessation:Ready to Q uit: Not Asked; Counseling Given: Not Answered Social Connections Answer Date Recorded Frequency of Communication with Friends and Fami ly 0 05/17/2022 Financial Resource Strain Answer Date R ecorded Difficulty of Paying Living Expenses 3 05/17/2022 Difficulty of Paying Living Expenses Not on file 05/17/2022 Food Insecurity Answer Date Recorded Worried About Running Out of Food in the Last Ye ar 1 05/17/2022 Transportation Needs Answer Date Record ed Lack of Transportation (Medical) 1 05/17/2022 Housing Stability Answer Date Recorded Unable to Pay for Housing in the Last Year 1 05/17/2022 Sex and Gender Information Value Date Recorded Sex Assigned at Not on file Gender Identity Not on file Sexual Orientation Not on file Obstetrics History Last Filed Vital Signs Vital Sign Reading Time Taken Comments Blood Pressure 128/97 04/07/2023 11:00 AM FLYING SHEAR OPERATOR Pulse 72 04/07/2023 11:00 AM FLYING SHEAR OPERATOR Temperature 37 ??C (98.6 ??F) 04/07/2023 10: 00 AM FLYING SHEAR OPERATOR Respiratory Rate 20 04/07/2023 10:0 0 AM FLYING SHEAR OPERATOR Oxygen Saturation 96% 04/07/2023 11: 00 AM FLYING SHEAR OPERATOR Inhaled Oxygen Concentration - - Weight 156.2 kg (344 lb 4.8 oz) 024 10:00 AM FLYING SHEAR OPERATOR Height 162.6 cm (5' 4) 04/07/2023 10:0 0 AM FLYING SHEAR OPERATOR Body Mass Index 59.1 04/07/2023 10:00 AM FLYING SHEAR OPERATOR Plan of Treatment Health Maintenance Due Date Last Done Comments Tdap 11/21/1966 Depression screening for age 12+ 1967 BMI (ht and wt on same day) for age 18+ 11/21/1973 Hepatitis C screening for age 18-79 11/21/1973 Tetanus booster 1975 Colonoscopy through age 75 11/21/2000 Lipids for age 45-75 11/21/2000 Mammogram for age 45-75 11/21/2000 Zoster (shingles) series for age 50+ (1 of 2) 11/22/19 06 DEXA/DXA scan for age 65+ 11/21/2020 Medicare Wellness for age 65+ 11/21/2020 Pneumococcal series for age 65+ (1 of 1 - PCV) 021 COVID-19 vaccine series ( - 2022-24 season) 3 Influenza for age 65+ 10/08/2023 Procedures Procedure Name Priority Date/Time Associated Diagnosis Comments CT ANGIO HEAD AND NECK CAROTID STAT 04/07/2023 11:40 AM FLYING SHEAR OPERATOR CT HEAD BRAIN WO STAT 04/07/2023 11:3 8 AM FLYING SHEAR OPERATOR RED CELL MORPHOLOGY STAT 04/07/2023 1 0:29 AM FLYING SHEAR OPERATOR PLATELET ESTIMATE STAT 04/07/2023 10: 29 AM FLYING SHEAR OPERATOR MANUAL DIFFERENTIAL STAT 04/07/2023 1 0:29 AM FLYING SHEAR OPERATOR CBC WITH AUTO DIFFERENTIAL STAT 04/07/2023 10:29 AM FLYING SHEAR OPERATOR BASIC METABOLIC PANEL STAT 04/07/2023 10:29 AM FLYING SHEAR OPERATOR CBC WITH AUTO DIFFERENTIAL STAT 04/07/2023 10:29 AM FLYING SHEAR OPERATOR EKG 12 LEAD STAT 04/07/2023 10:11 AM FLYING SHEAR OPERATOR from Last 3 Months Results * CT ANGIO HEAD AND NECK CAROTID (04/07/2023 11:40 AM FLYING SHEAR OPERATOR) Anatomical Region Laterality Modality BRAIN, NECK Computed Tomogra phy Impressions 04/10/2023 3:58 PM FLYING SHEAR OPERATOR Within the limitations of a degraded examination due to suboptimal timing of the intravenous contrast bolus, no definite intracranial proximal large vessel occlusion or proximal flow limiting luminal stenosis. Please note that all CT scans at this facility use dose modulation, iterative reconstruction, and/or weight-based dosing when appropriate to reduce radiation dose to as low as reasonably achievable. Dictated by Jesus Valdovinos MD @ 04/07/2023 1:06:32 PM Signed by: Jesus Valdovinos MD @04/07/2023 1:06:32 PM (Electronic Signature) CTA NECK CLINICAL HISTORY: Dizziness following chiropractic manipulation. TECHNIQUE: Standard helical CT image acquisition through the neck was performed after intravenous contrast bolus enhancement. 3D and MIP reconstructions were performed at a separate workstation and permanently archived. COMPARISON: None available. FINDINGS: Please note this examination is degraded due to suboptimal timing of the intravenous contrast bolus, with contrast predominantly in the systemic venous system. Given this, the origins of the great vessels, common carotid arteries, proximal ICAs, and more distal cervical ICAs are patent without evidence of hemodynamically significant luminal stenosis. The origins and cervical segments of the vertebral arteries are not well assessed on this examination but appear grossly patent. IMPRESSION: Within the limitations of a degraded examination due to suboptimal timing of the intravenous contrast bolus, as above, no convincing evidence of hemodynamically significant luminal stenosis in the cervical arterial vasculature. Please note that all CT scans at this facility use dose modulation, iterative reconstruction, and/or weight-based dosing when appropriate to reduce radiation dose to as low as reasonably achievable. Dictated by Jesus Valdovinos MD @ 04/07/2023 1:03:50 PM Signed by: Jesus Valdovinos MD @04/07/2023 1:03:50 PM (Electronic Signature) Narrative 04/10/2023 3:58 PM FLYING SHEAR OPERATOR CTA HEAD CLINICAL HISTORY: Dizziness following chiropractic manipulation. TECHNIQUE: Standard helical CT image acquisition through the head following the administration of intravenous contrast was performed. 3D and MIP reconstructions were performed at a separate workstation and permanently archived. COMPARISON: None available. FINDINGS: Please note this examination is degraded due to suboptimal timing of the intravenous contrast bolus. Given this, no convincing intracranial proximal large vessel occlusion or proximal flow limiting luminal stenosis. The major dural venous sinuses and deep venous system are patent. Andrea Kim DO CT * CT HEAD BRAIN WO (04/07/2023 11:38 AM FLYING SHEAR OPERATOR) Anatomical Region Laterality Modality HEAD, BRAIN Computed Tomogra phy Narrative 04/07/2023 12:36 PM FLYING SHEAR OPERATOR Technique: ?? Noncontrast CT of the head with multiplanar reconstruction utilizing bone and soft tissue algorithms. Indication: Dizziness. Comparison: None available. Findings: No acute intracranial hemorrhage. ??The mcnally-white matter interface is preserved. The ventricles are normal in size. No suspicious calvarial lesion is identified. ??There is evidence of prior cataract surgery. ??The imaged paranasal sinuses and mastoid air cells are clear. Impression: No acute intracranial abnormality. Andrea Kim DO CT * (ABNORMAL) CBC WITH AUTO DIFFERENTIAL (04/07/2023 10:29 AM FLYING SHEAR OPERATOR) WHITE BLOOD COUNT 7.3 4.5 - 11.0 thou/cu mm 04/07/2023 10:57 AM FLYING SHEAR OPERATOR [facility] RED BLOOD COUNT 4.98 4.00 - 5.20 mil/cu mm 04/07/2023 10:57 AM [facility] HEMOGLOBIN 14.1 12.0 - 16.0 g/dL 04/07/2023 10:57 AM [facility] HEMATOCRIT 43.3 33.0 - 51.0 % 04/07/2023 10:57 AM [facility] MCV 87 80 - 100 fL 04/07/2023 10:57 AM [facility] MCH 28.3 26.0 - 34.0 pg 04/07/2023 10:57 AM [facility] MCHC 32.6 32.0 - 36.0 g/dL 04/07/2023 10:57 AM [facility] RDW 15.0 11.5 - 15.5 % 04/07/2023 10:57 AM [facility] PLATELET COUNT 149 140 - 440 thou/cu mm 04/07/2023 10:57 AM [facility] MPV 11.1(H) 6.5 - 11.0 fL 04/07/2023 10:57 AM [facility] Blood BLOOD SPECIMEN / Unknown Venipuncture / Unknown 04/07/2023 10:29 AM FLYING SHEAR OPERATOR 04/07/2023 10:33 AM FLYING SHEAR OPERATOR Andrea Kim DO HEMATOLOGY Performing Organization Address City/[facility]/ZIP Co de Phone Number [facility] [address] [place] [address] * RED CELL MORPHOLOGY (04/07/2023 10:29 AM FLYING SHEAR OPERATOR) RBC COMMENT RBC morphology appears normal RBC morphology appears normal, RBC morphology within normal limits for newborns. 04/07/2023 10:57 AM [facility] Blood BLOOD SPECIMEN / Unknown Venipuncture / Unknown 04/07/2023 10:29 AM FLYING SHEAR OPERATOR 04/07/2023 10:33 AM FLYING SHEAR OPERATOR Andrea Kim DO HEMATOLOGY [facility] [address] [place] [address] * PLATELET ESTIMATE (04/07/2023 10:29 AM FLYING SHEAR OPERATOR) PLATELET ESTIMATE Adequate Adequate, No estimate 04/07/2023 10:57 AM [facility] Blood BLOOD SPECIMEN / Unknown Venipuncture / Unknown 04/07/2023 10:29 AM FLYING SHEAR OPERATOR 04/07/2023 10:33 AM FLYING SHEAR OPERATOR Andrea Kim DO HEMATOLOGY [facility] [address] [place] [address] * MANUAL DIFFERENTIAL (04/07/2023 10:29 AM FLYING SHEAR OPERATOR) % NEUTROPHILS 65.0 % 04/07/2023 10:57 AM [facility] % LYMPHOCYTES 28.0 % 04/07/2023 10:57 AM [facility] % MONOCYTES 4.0 % 04/07/2023 10:57 AM [facility] % EOSINOPHILS 3.0 % 04/07/2023 10:57 AM [facility] % BASOPHILS 0.0 % 04/07/2023 10:57 AM [facility] NEUTROPHILS ABSOLUTE 4.7 1.7 - 7.0 thou/cu mm 04/07/2023 10:57 AM [facility] LYMPHOCYTES ABSOLUTE 2.0 0.9 - 2.9 thou/cu mm 04/07/2023 10:57 AM [facility] MONOCYTES ABSOLUTE 0.3 <0.9 thou/cu mm 04/07/2023 10:57 AM [facility] EOSINOPHILS ABSOLUTE 0.2 <0.5 thou/cu mm 04/07/2023 10:57 AM [facility] BASOPHILS ABSOLUTE 0.0 <0.3 thou/cu mm 04/07/2023 10:57 AM [facility] Blood BLOOD SPECIMEN / Unknown Venipuncture / Unknown 04/07/2023 10:29 AM FLYING SHEAR OPERATOR 04/07/2023 10:33 AM [facility] Andrea Kim DO HEMATOLOGY [facility] [address] [place], [place] [phone] * (ABNORMAL) BASIC METABOLIC PANEL (04/07/2023 10:29 AM [facility]) SODIUM 140 136 - 145 mmol/L 04/07/2023 10:52 AM [facility] POTASSIUM 3.9 3.5 - 5.1 mmol/L 04/07/2023 10:52 AM [facility] CHLORIDE 105 98 - 107 mmol/L 04/07/2023 10:52 AM [facility] CO2,TOTAL 23 22 - 29 mmol/L 04/07/2023 10:52 AM [facility] ANION GAP 12 5 - 18 04/07/2023 10:52 AM [facility] GLUCOSE 128(H) 70 - 99 mg/dL 04/07/2023 10:52 AM [facility] CALCIUM 9.9 8.8 - 10.2 mg/dL 04/07/2023 10:52 AM [facility] BUN 13 8 - 23 mg/dL 04/07/2023 10:52 AM [facility] CREATININE 0.59 0.50 - 0.90 mg/dL 04/07/2023 10:52 AM [facility] BUN/CREAT RATIO 22(H) 10 - 20 10:52 AM [facility] eGFR >90 >90 mL/min/1.7 3m2 04/07/2023 10:52 AM [facility] Comment:As of 2021, eG FR is calculated by the CKD-EPI creatinine equation without race adjustment. ??eGFR can be influenced by muscle mass, exercise, and diet. ??The reported eGFR is an estimation only and is only applicable if the renal function is stable. Blood BLOOD SPECIMEN / Unknown Venipuncture / Unknown 04/07/2023 10:29 AM FLYING SHEAR OPERATOR 04/07/2023 10:33 AM FLYING SHEAR OPERATOR Andrea Kim DO CHEMISTRY Performing Organization Address City/[facility]/ZIP Co de Phone Number [facility] [address] [place] [address] * EKG 12 LEAD (04/07/2023 10:11 AM FLYING SHEAR OPERATOR) Interpretation Normal sinus rhythm Low voltage QRS Cannot rule out Anterior infarct , age undetermined Abnormal ECG No previous ECGs available BEYOND NOW Ventricular Rate 77 BPM BEYOND NOW Atrial Rate 77 BPM BEYOND NOW P-R Interval 190 ms BEYOND NOW QRS Duration 84 ms BEYOND NOW QT 390 ms BEYOND NOW QTc 441 ms BEYOND NOW P Holmes 12 degrees BEYOND NOW R Holmes 20 degrees BEYOND NOW T Holmes 29 degrees BEYOND NOW 04/07/2023 10:1 1 AM FLYING SHEAR OPERATOR 04/07/2023 3:39 PM FLYING SHEAR OPERATOR Andrea Kim DO EKG ORD Performing Organization Address [facility] Co de Phone Number BEYOND NOW [place], [place] from Last 3 Months Advance Directives * Full Code (Latest Code Status on File) Date Activated Date Inactivated Comments 01/19/2022 4:10 PM 01/22/2022 3:11 PM Question Answer Comments Code Status Discussion: Reviewed Preferences Care Teams Valet Parking Attendant Relationship Specialty Start Date End Date Thea Huggins PA-C [address] [place] [address] PCP - General Emergency Medicine 01/20/22
--- OUTSIDE RECORDS SUMMARY | 2023-06-21 09:56 | XMS_ITS | Encounter Summary ---
Author Name Unknown Organization [place] Address [address] [facility] [place] [address] Care Team Providers Care Pyrotechnics Press Tender Name Role Phone Nelson Chan MD Primary Care Provider + [phone] Nelosn Chan MD Unavailable + [phone] Nelson Chan MD Unavailable +[phone] Nelson Chan MD Unavailable +[phone] Sage Knicaid MD Unavailable +[phone] Chris Mcdaniel PA-C Unavailable +[phone] Chris Mcdaniel PA-C Unavailable +[phone] Nelson Chan MD Unavailable +[phone] Encounter Details Date Type Department Care Team (Late st Contact Info) Description 01/05/[address] [address] Lore Medeiros Social History Tobacco Use Types Packs/Day Years [...] on filedocumented in this encounter Care Teams Pyrotechnics Press Tender Relationship Specialty Start Date End Date Nelson Chan MD [address] [place] [address] PCP - General 06/18/04 Nelson Chan MD [address] [place] [address] PCP - Assigned PCP 02/25/13 04/10/18 Nelson Chan MD [address] [place] [address] Assigned PCP 02/25/13 06/30/18 Nelson Chan MD [address] [place] [address] Assigned PCP 08/25/19 01/21/22 [place] [address] [place] [address] Assigned Sleep Provider 11/29/1912/20 Chris Mcdaniel PA-C [address] [place] [address] Assigned Sleep Provider 04/22/20 Chris Mcdaniel PA-C [address] [place] [address] Assigned Neuroscience Provider 04/22/20 02/11/22 Nelson Chan MD [address] [place] [address] Assigned PCP 04/02/22 10/07/22 documented as of this encounter
--- OUTSIDE RECORDS SUMMARY | 2023-06-21 09:56 | XMS_ITS | Encounter Summary ---
Author Name Unknown Organization [place] Address [address] [facility] [place] [address] Care Team Providers Care Printing Worker Supervisor Name Role Phone Nelson Chan MD Primary Care Provider + [phone] Nelson Chan MD Unavailable + [phone] Nelson Chan MD Unavailable + [phone] Nelson Chan MD Unavailable +[phone] Sage Kincaid MD Unavailable +[phone] Chris Mcdaniel PA-C Unavailable +[phone] Chris Mcdaniel PA-C Unavailable +[phone] Nelson Chan MD Unavailable + [phone] Encounter Details Date Type Department Care Team (Late st Contact Info) Description 06/17/2011 [facility] [address] [place] [address] Teri Vasquez MD [address] [place] [address] [id number] Social History Tobacco Use Types Packs/Day Years Used Date Smoking Tobacco: Every Day Cigarettes 1 40 Smokeless Tobacco: Never Alcohol Use Standard Drinks/Week [...] on filedocumented in this encounter Care Teams Printing Worker Supervisor Relationship Specialty Start Date End Date Nelson Chan MD [address] [address] PCP - General 06/18/04 Nelson Chan MD [address] [place] [address] PCP - Assigned PCP 02/25/13 04/10/18 Nelson Chan MD [address] [address] Assigned PCP 02/25/13 06/30/18 Nelson Chan MD [address] [address] Assigned PCP 08/25/19 01/21/22 [place] [address] [address] Assigned Sleep Provider 11/29/1912/20 Chris Mcdaniel PA-C [address] [address] Assigned Sleep Provider 04/22/20 Chris Mcdaniel PA-C [address] [facility] [address] [place] [address] Assigned Neuroscience Provider 04/22/20 02/11/22 Nelson Chan MD [address] [address] Assigned PCP 04/02/22 10/07/22 documented as of this encounter
--- OUTSIDE RECORDS SUMMARY | 2023-06-21 09:56 | XMS_ITS | Encounter Summary ---
Author Name Unknown Organization [place] Address [address] [facility] [place] [address] Care Team Providers Care Mold Filler Name Role Phone Nelson Chan MD Primary Care Provider + [phone] Nelson Chan MD Unavailable + [phone] Nelson Chan MD Unavailable + [phone] Nelson Chan MD Unavailable +[phone] Sage Kincaid MD Unavailable +[phone] Chris Mcdaniel PA-C Unavailable +[phone] Chris Mcdaniel PA-C Unavailable [phone] Nelson Chan MD Unavailable + [phone] Encounter Details Date Type Department Care Team (Late st Contact Info) Description 06/20/2011 [facility] Advice Initial Department Lore Medeiros Social History Tobacco Use Types [...] on filedocumented in this encounter Care Teams Mold Filler Relationship Specialty Start Date End Date Nelson Chan MD [address] [place] [address] PCP - General 06/18/04 Nelson Chan MD [address] [place] [address] PCP - Assigned PCP 02/25/13 04/10/18 Nelson Chan MD [address] [place] [address] Assigned PCP 02/25/13 06/30/18 Nelson Chan MD [address] [place] [address] Assigned PCP 08/25/19 01/21/22 [place] [address] [address] Assigned Sleep Provider 11/29/1912/20 Chris Mcdaniel PA-C [address] [place] [address] Assigned Sleep Provider 04/22/20 Chris Mcdaniel PA-C [address] [place] [address] Assigned Neuroscience Provider 04/22/20 02/11/22 Nelson Chan MD [address] [place] [address] Assigned PCP 04/02/22 10/07/22 documented as of this encounter
--- OUTSIDE RECORDS SUMMARY | 2023-06-21 09:56 | XMS_ITS | Encounter Summary ---
Author Name Unknown Organization [place] Address [address] [facility] [place] [address] Care Team Providers Care Line And Frame Poler Name Role Phone Nelson Chan MD Primary Care Provider + [phone] Nelson Chan MD Unavailable + [phone] Nelson Chan MD Unavailable + [phone] Nelson Chan MD Unavailable +[phone] Sage Kincaid MD Unavailable +[phone] Chris Mcdaniel PA-C Unavailable +[phone] Chris Mcdaniel PA-C Unavailable +[phone] eNlson Chan MD Unavailable + [phone] Encounter Details Date Type Department Care Team (Late st Contact Info) Description 01/19/[address] [address] Lore Medeiros Social History Tobacco Use Types [...] on filedocumented in this encounter Care Teams Line And Frame Poler Relationship Specialty Start Date End Date Nelson Chan MD [address] [place] [address] PCP - General 06/18/04 Nelson Chan MD [address] [place] [address] PCP - Assigned PCP 02/25/13 04/10/18 Nelson Chan MD [address] [place] [address] Assigned PCP 02/25/13 06/30/18 Nelson Chan MD [address] [place] [address] Assigned PCP 08/25/19 01/21/22 [place] [address] [place] [address] Assigned Sleep Provider 11/29/1912/20 Chris Mcdaniel PA-C [address] [place] [address] Assigned Sleep Provider 04/22/20 Chris Mcdaniel PA-C [address] [place] [address] Assigned Neuroscience Provider 04/22/20 02/11/22 Nelson Chan MD [address] [place] [address] Assigned PCP 04/02/22 10/07/22 documented as of this encounter
--- OUTSIDE RECORDS SUMMARY | 2023-06-21 09:56 | XMS_ITS | Encounter Summary ---
Author Name Unknown Organization [place] Address [address] [facility] [place] [address] Care Team Providers Care Welt Edge Rounder Name Role Phone Nelson Chan MD Primary Care Provider + [phone] Nelson Chan MD Unavailable + [phone] Nelson Chan MD Unavailable +[phone] Nelson Chan MD Unavailable +[phone] Sage Kincaid MD Unavailable +[phone] Chris Mcdaniel PA-C Unavailable +[phone] Chris Mcdaniel PA-C Unavailable +[phone] Nelson Chan MD Unavailable + [phone] Encounter Details Date Type Department Care Team (Late st Contact Info) Description 10/17/2006 [facility] [address] [address] Nelson Chan MD [address] [address] Social History Tobacco Use Types [...] on filedocumented in this encounter Care Teams Welt Edge Rounder Relationship Specialty Start Date End Date Nelson Chan MD [address] [address] PCP - General 06/18/04 Nelson Chan MD [address] [place] [address] PCP - Assigned PCP 02/25/13 04/10/18 Nelson Chan MD [address] [place] [address] Assigned PCP 02/25/13 06/30/18 Nelson Chan MD [address] [address] Assigned PCP 08/25/19 01/21/22 [place] [address] [address] Assigned Sleep Provider 11/29/1912/20 Chris Mcdaniel PA-C [address] [address] Assigned Sleep Provider 04/22/20 Chris Mcdaniel PA-C [address] Ram[address]rez [facility] [address] [address] Assigned Neuroscience Provider 04/22/20 02/11/22 Nelson Chan MD [address] [address] Assigned PCP 04/02/22 10/07/22 documented as of this encounter
--- OUTSIDE RECORDS SUMMARY | 2023-06-21 09:56 | XMS_ITS | Encounter Summary ---
Author Name Unknown Organization [place] Address [address] [facility] [address] Care Team Providers Care Estimator Name Role Phone Nelson Chan MD Primary Care Provider + [phone] Muna Cade MD Primary Care Provider +[phone] Nelson Chan MD Unavailable + [phone] Nelson Chan MD Unavailable +[phone] Nelson Chan MD Unavailable +[phone] Sage Kincaid MD Unavailable +[phone] Chris Mcdaniel PA-C Unavailable +[phone] Chris Mcdaniel PA-C Unavailable + [phone] Nelson Chan MD Unavailable + [phone] Encounter Details Date Type Department Care Team (Late st Contact Info) Description 01/04/[address] [address] Muna Cade MD NO INFO FOUND [place], [place] [address] ER ENC (Primary Dx) Social History Tobacco Use Types [...] PM CDT documented as of this encounter Progress Notes * 01/04/2002 11:59 PM CSTAddended by: BRITTANY PRAJAPATI on: 01/09/2002,2:47 PM Modules accepted: Order Summary, Progress Notes Dec 00:00 Emergency Department Encounter-HANNY PAREDES) [Entered: 00 :00 Element Setter ([facility])] CHIEF COMPLAINT: Chest pain. HISTORY OF PRESENT ILLNESS: Britni varela is a 46-year-old female who had relatively sudden onset, but gradually worsening mid epigastric abdominal/chest pain with radiation into her back. She described it as burning and stabbing in natur e. It came on about a half hour ago. It was initially unresponsive to antacids that she took at [facility] and she came in for evaluation. She states on arrival here, pain is almost completely gone. She r eally had no associated symptoms with it. She has had no nausea. No vomiting. She feels a little b it short of breath, but she has had that for about a week or so because she is congested with some up per respiratory symptoms. No significant cough. No fevers, chills or sweats, other problems or conc erns. PAST MEDICAL HISTORY: No chronic medical illness. She states she has had something similar t o this before a couple of years ago and was thought to be reflux or acid related at the time. She is on no regular medications, however, she does take calcium and also reports using ibuprofen on a semi -regular basis, almost daily in the morning or every other day. She has no known medical allergies. FAMILY HISTORY: Positive for hypertension. SOCIAL HISTORY: She is a pack per day smoker. Rarel y uses alcohol. No use of any other drugs. REVIEW OF SYSTEMS: She has been otherwise well. Has evangelista d some mild upper respiratory symptoms including some nasal congestion. No significant cough or feve r. Occasional back stiffness. All other systems review negative other than described in the HPI. P HYSICAL EXAMINATION: Oral temperature 97.9, pulse 87, respirations 22, blood pressure 119/68. Puls e ox 98% on room air. General: Alert and oriented times three laying on the cart. Mildly anxious. H EENT exam: Head is normocephalic, atraumatic. No nasal discharge. Oropharynx is clear with moist mu cous membranes. Neck: Supple without lymphadenopathy. Lungs: Clear are clear to auscultation bilate rally without wheezing, rales or rhonchi. Coronary exam: Regular rate. No murmurs, rubs or gallops. Peripheral pulses are 2+ and symmetric. Abdomen: Soft, nondistended. Positive bowel sounds throug hout. She is mildly tender to palpation in the midepigastrium, but no rebound, guarding or other per itoneal signs. Extremities: Without cyanosis. She has trace pedal edema. Skin: Warm and dry withou t rash. Chest x-ray shows no effusion, consolidation, or infiltrate. No bony abnormality, pneumotho rax. No free air under the diaphragm. Heart and mediastinum are normal dimension. EKG shows a chuck l sinus rhythm at 78 beats per minute. Normal IL and QT intervals. There is no ST elevation, depres clover or T wave inversion. There is some poor R wave progression V1 through V3, but this is unchanged from EKG from two years ago. ASSESSMENT AND PLAN/EMERGENCY DEPARTMENT COURSE: The patient is essent ially pain-free at this time. I feel that her pain is most likely gastroesophageal reflux or peptic ulcer-related. She had no return of her pain here in the Emergency Department and I felt she could b e safely discharged to home. Will place her on Zantac 150 daily and recommended an antiacid such as Mylanta or Gaviscon for acute pain. She can use Tylenol and I recommended stopping the ibuprofen at least temporarily as this may be contributing to her problem. I also recommended that she stop smokin g. She should follow-up with Dr. Cade in the next 1 or 2 weeks to assess the value of the Zantac a s well as to discuss other possible etiologies such as cardiac, although my suspicion is very low. S he may need further outpatient stress testing. She was comfortable with this plan and was discharged to home in satisfactory condition. DISCHARGE DIAGNOSIS: Gastroesophageal reflux disease. Mauro SOLIS MD MT: Document: [id number] [place], [place] Name: BRITNI AVILA EMERGENCY ROOM ENCOUNTER Page 3 of 2 LC N: ER DSC: 01/04/2002 [place], [place] Name: BRITNI AVLIA MR#: : Admit Date: [id number] 01/04/2002 Doctor: Mauro SOLIS MD EMERGENCY R OOM ENCOUNTER Page 1 of 2 Electronically filed by Brittany Prajapati 01/09/2002 2:46 PM documented in this encounter Plan of Treatment Not on file documented as of this encounter Visit Diagnoses Diagnosis ER ENC- Primary documented in this encounter Care Teams Estimator Relationship Specialty Start Date End Date Nelson Chan MD [address] [place] [address] PCP - General 06/18/04 M[place] [address] PCP - General 01/07/02 06/17/04 Nelson Chan MD [address] [place] [address] PCP - Assigned PCP 02/25/13 04/10/18 Nelson Chan MD [address] [place] [address] Assigned PCP 02/25/13 06/30/18 Nelson Chan MD [address] [place] [address] Assigned PCP 08/25/19 01/21/22 [place] [address] GRANADOS [address] [place], [place] [address], [place] [address] Assigned Sleep Provider 11/29/1912/20 Chris Mcdaniel PA-C [address] [place] [address] [place] [address] Assigned Sleep Provider 04/22/20 Chris Mcdaniel PA-C [address] [facility] [place] [address] Assigned Neuroscience Provider 04/22/20 02/11/22 Nelson Chan MD [address] [place] [address] Assigned PCP 04/02/22 10/07/22 documented as of this encounter
--- OUTSIDE RECORDS SUMMARY | 2023-06-21 09:56 | XMS_ITS | Encounter Summary ---
Author Name Unknown Organization [place] Address [address] [facility] [place] [address] Care Team Providers Care Management Professional Name Role Phone Nelson Chan MD Primary Care Provider + [phone] Nelson Chan MD Unavailable + [phone] Nelson Chan MD Unavailable +[phone] Nelson Chan MD Unavailable +[phone] [phone] Sage Kincaid MD Unavailable +[phone] Chris Mcdaniel PA-C Unavailable +[phone] Chris Mcdaniel PA-C Unavailable +[phone] Nelson Chan MD Unavailable + [phone] Encounter Details Date Type Department Care Team (Latest Contact Info) Description 09/20/2011 [facility] [address] [address] Nelson Chan MD [address] [address] Back pain (Primary Dx) Social History Tobacco Use Types [...] Notes * Telephone Encounter - Triny Murillo - 09/20/2011 11:00 AM CDT Discontinued med documented in this encounter Plan of Treatment Not on file documented as of this encounter Visit Diagnoses Diagnosis Back pain- Primary Backache, unspecified documented in this encounter Care Teams Management Professional Relationship Specialty Start Date End Date Nelson Chan MD [address] [address] PCP - General 06/18/04 Nelson Chan MD [address] [address] PCP - Assigned PCP 02/25/13 04/10/18 Nelson Chan MD [address] [address] Assigned PCP 02/25/13 06/30/18 Nelson Chan MD [address] [address] Assigned PCP 08/25/19 01/21/22 [place] [address] [place] [address] Assigned Sleep Provider 11/29/1912/20 Chris Mcdaniel PA-C [address] [facility] [address] [address] Assigned Sleep Provider 04/22/20 Chris Mcdaniel PA-C [address] [facility] [address] [address] Assigned Neuroscience Provider 04/22/20 02/11/22 Nelson Chan MD [address] [place] [address] Assigned PCP 04/02/22 10/07/22 documented as of this encounter
--- OUTSIDE RECORDS SUMMARY | 2023-06-21 09:56 | XMS_ITS | Encounter Summary ---
Author Name Unknown Organization [place] Address [address] [facility] [place] [address] Care Team Providers Care Director Of Pulmonary Unit Name Role Phone Nelson Chan MD Primary Care Provider + [phone] Nelson Chan MD Unavailable + [phone] Nelson Chan MD Unavailable + [phone] Nelson Chan MD Unavailable +[phone] [phone] Sage Kincaid MD Unavailable +[phone] Chris Mcdaniel PA-C Unavailable +[phone] Chris Mcdaniel PA-C Unavailable +[phone] Nelson Chan MD Unavailable + [phone] Encounter Details Date Type Department Care Team (Late st Contact Info) Description 04/09/2010 [facility] [address] [address] Nelson Chan MD [address] [address] Social History Tobacco Use Types [...] on filedocumented in this encounter Care Teams Director Of Pulmonary Unit Relationship Specialty Start Date End Date Nelson Chan MD [address] [address] PCP - General 06/18/04 Nelson Chan MD [address] [place] [address] PCP - Assigned PCP 02/25/13 04/10/18 Nelson Chan MD [address] [place] [address] Assigned PCP 02/25/13 06/30/18 Nelson Chan MD [address] [address] Assigned PCP 08/25/19 01/21/22 [place] [address] [address] Assigned Sleep Provider 11/29/1912/20 Chris Mcdaniel PA-C [address] [address] Assigned Sleep Provider 04/22/20 Chris Mcdaniel PA-C [address] [facility] [address] [address] Assigned Neuroscience Provider 04/22/20 02/11/22 Nelson Chan MD [address] [address] Assigned PCP 04/02/22 10/07/22 documented as of this encounter
--- OUTSIDE RECORDS SUMMARY | 2023-06-21 09:56 | XMS_ITS | Encounter Summary ---
Author Name Unknown Organization [place] Address [address] [facility] [place] [address] Care Team Providers Care Customer Supply Chain Analyst Name Role Phone Nelson Chan MD Primary Care Provider + [phone] Nelson Chan MD Unavailable + [phone] Nelson Chan MD Unavailable +[phone] Nelson Chan MD Unavailable +[phone] Sage Kincaid MD Unavailable +[phone] Chris Mcdaniel PA-C Unavailable +[phone] Chris Mcdaniel PA-C Unavailable +[phone] Nelson Chan MD Unavailable + [phone] Encounter Details Date Type Department Care Team (Late st Contact Info) Description 02/13/2014 [facility] [address] [address] Nelson Chan MD [address] [address] Social History Tobacco Use Types [...] on filedocumented in this encounter Care Teams Customer Supply Chain Analyst Relationship Specialty Start Date End Date Nelson Chan MD [address] [address] PCP - General 06/18/04 Nelson Chan MD [address] [address] PCP - Assigned PCP 02/25/13 04/10/18 Nelson Chan MD [address] [address] Assigned PCP 02/25/13 06/30/18 Nelson Chan MD [address] [place] [address] Assigned PCP 08/25/19 01/21/22 [place] [address] [place] [address] Assigned Sleep Provider 11/29/1912/20 Chris Mcdaniel PA-C [address] [facility] [place] [address] Assigned Sleep Provider 04/22/20 Chris Mcdaniel PA-C [address] [facility] [address] [place] [address] Assigned Neuroscience Provider 04/22/20 02/11/22 Nelson Chan MD [address] [address] Assigned PCP 04/02/22 10/07/22 documented as of this encounter
--- OUTSIDE RECORDS SUMMARY | 2023-06-21 09:56 | XMS_ITS | Encounter Summary ---
Author Name Unknown Organization [place] Address [address] [facility] [place] [address] Care Team Providers Care Breakfast Hostess Name Role Phone Nelson Chan MD Primary Care Provider + [phone] Nelson Chan MD Unavailable + [phone] Nelson Chan MD Unavailable +[phone] Nelson Chan MD Unavailable +[phone] [phone] Sage Kincaid MD Unavailable +[phone] Chris Mcdaniel PA-C Unavailable +[phone] Chris Mcdaniel PA-C Unavailable +[phone] Nelson Chan MD Unavailable + [phone] Encounter Details Date Type Department Care Team (Late st Contact Info) Description 05/09/2011 [facility] [address] [address] Nelson Chan MD [address] [address] Social History Tobacco Use Types Packs/Day Years Used Date Smoking Tobacco: Every Day Cigarettes 1 40 Alcohol Use Standard Drinks/Week Comments No 0 [...] on filedocumented in this encounter Care Teams Breakfast Hostess Relationship Specialty Start Date End Date Nelson Chan MD [address] [address] PCP - General 06/18/04 Nelson Chan MD [address] [place] [address] PCP - Assigned PCP 02/25/13 04/10/18 Nelson Chan MD [address] [place] [address] Assigned PCP 02/25/13 06/30/18 Nelson Chan MD [address] [address] Assigned PCP 08/25/19 01/21/22 [place] [address] [address] Assigned Sleep Provider 11/29/1912/20 Chris Mcdaniel PA-C [address] [address] Assigned Sleep Provider 04/22/20 Chris Mcdaniel PA-C [address] [facility] [address] [address] Assigned Neuroscience Provider 04/22/20 02/11/22 Nelson Chan MD [address] [address] Assigned PCP 04/02/22 10/07/22 documented as of this encounter
--- OUTSIDE RECORDS SUMMARY | 2023-06-21 09:56 | XMS_ITS | Encounter Summary ---
Author Name Unknown Organization [place] Address [address] [facility] [place] [address] Care Team Providers Care Application Trainer Name Role Phone Nelson Chan MD Primary Care Provider + [phone] Nelson Chan MD Unavailable + [phone] Nelson Chan MD Unavailable + 1-2651 Nelson Chan MD Unavailable +[phone] [phone] Sage Kicnaid MD Unavailable +[phone] Chris Mcdaniel PA-C Unavailable +[phone] Chris Mcdaniel PA-C Unavailable +[phone] Nelson Chan MD Unavailable + [phone] Encounter Details Date Type Department Care Team (Late st Contact Info) Description 04/11/2005 [facility] [address] [address] Nelson Chan MD [address] [address] Social History Tobacco Use Types [...] on filedocumented in this encounter Care Teams Application Trainer Relationship Specialty Start Date End Date Nelson Chan MD [address] [address] PCP - General 06/18/04 Nelson Chan MD [address] [place] [address] PCP - Assigned PCP 02/25/13 04/10/18 Nelson Chan MD [address] [place] [address] Assigned PCP 02/25/13 06/30/18 Nelson Chan MD [address] [address] Assigned PCP 08/25/19 01/21/22 [place] [address] [address] Assigned Sleep Provider 11/29/1912/20 Chris Mcdaniel PA-C [address] [address] Assigned Sleep Provider 04/22/20 Chris Mcdaniel PA-C [address] [facility] [address] [address] Assigned Neuroscience Provider 04/22/20 02/11/22 Nelson Chan MD [address] [address] Assigned PCP 04/02/22 10/07/22 documented as of this encounter
--- OUTSIDE RECORDS SUMMARY | 2023-06-21 09:56 | XMS_ITS | Encounter Summary ---
Author Name Unknown Organization [place] Address [address] [facility] [place] [address] Care Team Providers Care Security Police Name Role Phone Nelson Chan MD Primary Care Provider + [phone] Nelson Chan MD Unavailable +[phone] Nelson Chan MD Unavailable +[phone] [phone] Nelson Chan MD Unavailable +[phone] [phone] Sage Kincaid MD Unavailable +[phone] Chris Mcdaniel PA-C Unavailable +[phone] Chris Mcdaniel PA-C Unavailable +[phone] Nelson Chan MD Unavailable +[phone] [phone] Reason for Visit * Reason Onset Date Comments Smoking Cessation 05/12/2008 Encounter Details Date Type Department Care Team (Late st Contact Info) Description 05/12/2008 [facility] [place] [facility] [address] [address] Nelson Chan MD [address] [id number] Smoking Cessation Social History Tobacco Use Types Packs/Day Years [...] of this encounter Visit Diagnoses Diagnosis Tobacco use disorder- Primary documented in this encounter Care Teams Security Police Relationship Specialty Start Date End Date Nelson Chan MD [address] [address] PCP - General 06/18/04 Nelson Chan MD [address] [address] PCP - Assigned PCP 02/25/13 04/10/18 Nelson Chan MD [address] [place] [address] Assigned PCP 02/25/13 06/30/18 Nelson Chan MD [address] [place] [address] Assigned PCP 08/25/19 01/21/22 [place] [address]NA[address] [place] [address] Assigned Sleep Provider 11/29/1912/20 Chris Mcdaniel PA-C [address] [facility] [place] [address] Assigned Sleep Provider 04/22/20 Chris Mcdaniel PA-C [address] [facility] [address] [place] [address] Assigned Neuroscience Provider 04/22/20 02/11/22 Nelson Chan MD [address] [place] [address] Assigned PCP 04/02/22 10/07/22 documented as of this encounter
--- OUTSIDE RECORDS SUMMARY | 2023-06-21 09:56 | XMS_ITS | Encounter Summary ---
Author Name Unknown Organization [place] Address [address] [facility] [address] Care Team Providers Care Marketing Education Teacher Name Role Phone Nelosn Chan MD Primary Care Provider + [phone] Nelson Chan MD Unavailable + [phone] Nelson Chan MD Unavailable + [phone] Nelson Cahn MD Unavailable +[phone] [phone] Sage Kincaid MD Unavailable +[phone] Chris Mcdaniel PA-C Unavailable +[phone] Chris Mcdaniel PA-C Unavailable +[phone] Nelson Chan MD Unavailable + [phone] Encounter Details Date Type Department Care Team (Late st Contact Info) Description 10/23/2009 [facility] Initial Department Lore Medeiros [...] on filedocumented in this encounter Care Teams Marketing Education Teacher Relationship Specialty Start Date End Date Nelson Chan MD [address] [address] PCP - General 06/18/04 Nelson Chan MD [address] [place] [address] PCP - Assigned PCP 02/25/13 04/10/18 Nelson Chan MD [address] [address] Assigned PCP 02/25/13 06/30/18 Nelson Chan MD [address] [place] [address] Assigned PCP 08/25/19 01/21/22 [place] [address] [address] Assigned Sleep Provider 11/29/1912/20 Chris Mcdaniel PA-C [address] [address] Assigned Sleep Provider 04/22/20 Chris Mcdaniel PA-C [address] [place] [address] [place] [address] Assigned Neuroscience Provider 04/22/20 02/11/22 Nelson Chan MD [address] [place] [address] Assigned PCP 04/02/22 10/07/22 documented as of this encounter
--- OUTSIDE RECORDS SUMMARY | 2023-06-21 09:56 | XMS_ITS | Encounter Summary ---
Author Name Unknown Organization [place] Address [address] [facility] [address] Care Team Providers Care Nylon Machine Operator Name Role Phone Nelson Chan MD Primary Care Provider + [phone] Nelson Chan MD Unavailable + [phone] Nelson Chan MD Unavailable +[phone] Nelson Chan MD Unavailable +[phone] [phone] Sage Kincaid MD Unavailable +[phone] Chris Mcdaniel PA-C Unavailable +[phone] Chris Mcdaniel PA-C Unavailable [phone] Nelson Chan MD Unavailable + [phone] Encounter Details Date Type Department Care Team (Late st Contact Info) Description 04/10/2009 [facility] [address] [address] Nelson Chan MD [address] [address] Social History Tobacco Use Types [...] on filedocumented in this encounter Care Teams Nylon Machine Operator Relationship Specialty Start Date End Date Nelson Chan MD [address] [address] PCP - General 06/18/04 Nelson Chan MD [address] [place] [address] PCP - Assigned PCP 02/25/13 04/10/18 Nelson Chan MD [address] [place] [address] Assigned PCP 02/25/13 06/30/18 Nelson Chan MD [address] [address] Assigned PCP 08/25/19 01/21/22 [place] [address] [address] Assigned Sleep Provider 11/29/1912/20 Chris Mcdaniel PA-C [address] [address] Assigned Sleep Provider 04/22/20 Chris Mcdaniel PA-C [address] [facility] [address] [place] [address] [address] Assigned Neuroscience Provider 04/22/20 02/11/22 Nelson Chan MD [address] [address] Assigned PCP 04/02/22 10/07/22 documented as of this encounter
--- OUTSIDE RECORDS SUMMARY | 2023-06-21 09:56 | XMS_ITS | Encounter Summary ---
Author Name Unknown Organization [place] Address [address] [place] [address] Care Team Providers Care Properties Supervisor Name Role Phone Nelson Chan MD Primary Care Provider + [phone] Nelson Chan MD Unavailable [phone] Nelson Chan MD Unavailable [phone] Nelson Chan MD Unavailable [phone] Sage Kincaid MD Unavailable [phone] Chris Mcdaniel PA-C Unavailable +[phone] Chris Mcdaniel PA-C Unavailable [phone] Nelson Chan MD Unavailable [phone] Encounter Details Date Type Department Care Team (Late st Contact Info) Description 06/28/2010 [facility] [address] [address] Nelson Chan MD [address] [address] Social History Tobacco Use Types [...] on filedocumented in this encounter Care Teams Properties Supervisor Relationship Specialty Start Date End Date Nelson Chan MD [address] [address] PCP - General 06/18/04 Nelson Chan MD [address] [place] [address] PCP - Assigned PCP 02/25/13 04/10/18 Nleson Chan MD [address] [place] [address] Assigned PCP 02/25/13 06/30/18 Nelson Chan MD [address] [address] Assigned PCP 08/25/19 01/21/22 [place] [address] [address] Assigned Sleep Provider 11/29/1912/20 Chris Mcdaniel PA-C [address] [address] Assigned Sleep Provider 04/22/20 Chris Mcdaniel PA-C [address] [facility] [address] [address] Assigned Neuroscience Provider 04/22/20 02/11/22 Nelson Chan MD [address] [address] Assigned PCP 04/02/22 10/07/22 documented as of this encounter
== END 2023-06-21 09:47 | disposition home or self-care (01) ==
PROVIDERS: PCP Physician Assistant Medical; Visit Provider Physician Assistant Medical
DX: R06.00 Dyspnea, unspecified (principal); I10 Essential (primary) hypertension; E78.5 Hyperlipidemia, unspecified
CPT/HCPCS: 80053; 80061; 84484

== ENCOUNTER 2023-12-04 11:05 | Outpatient (CLI) | payer MEDICARE, SELFPAY ==
--- OUTSIDE RECORDS SUMMARY | 2023-12-04 11:09 | XMS_ITS | Encounter Summary ---
Author Organization [place] Address Pending sale to [facility] [place] [address] Care Team Providers Care Veterinary Surgery Technician Name Role Phone Nelson Chan MD Primary Care Provider + [phone] Nelson Chan MD Unavailable [phone] Sage Kincaid MD Unavailable [phone] Chris Mcdaniel PA-C Unavailable [phone] Chris Mcdaniel PA-C Unavailable [phone] Nelson Chan MD Unavailable [phone] Reason for Visit * Reason Onset Date Comments Symptoms 01/14/2019 Encounter Details Date Type Department Care Team (Late st Contact Info) Description 01/14/2019 [facility] [address] [address] Nelson Chan MD [address] [address] Symptoms Social History Tobacco Use Types Packs/Day Years Used Date Smoking Tobacco: Some Days Cigarettes 1 40 Started: 10/07/2012 Smokeless Tobacco: Never Alcohol Use Standard Drinks/Week Comments No 0 (1 standard drink = 0.6 oz pur e alcohol) PHQ-2 Answer Date Recorded PHQ-2 Score 0 02/13/2018 Comments No Sex and Gender Information Value Date Recorded Sex Assigned at Female 05/29/2018 3:24 PM CDT 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 Gender Identity Female 05/29/2018 3:24 PM CDT Sexual Orientation Straight 05/29/2018 3: 25 PM CDT documented as of this encounter Plan of Treatment Not on file documented as of this encounter Visit Diagnoses Not on filedocumented in this encounter Care Teams Veterinary Surgery Technician Relationship Specialty Start Date End Date Nelson Chan MD [address] [place] [address] PCP - General 06/18/04 Nelson Chan MD [address] [place] [address] Assigned PCP 08/25/19 01/21/22 [place] [address] [facility] [address] [place] [address] Assigned Sleep Provider 11/29/1912/20 Chris Mcdaniel PA-C [address] [place] [address] Assigned Sleep Provider 04/22/20 Chris Mcdaniel PA-C [address] [place] [address] Assigned Neuroscience Provider 04/22/20 02/11/22 Nelson Chan MD [address] [place] [address] Assigned PCP 04/02/22 10/07/22 documented as of this encounter
--- OUTSIDE RECORDS SUMMARY | 2023-12-04 11:09 | XMS_ITS | Encounter Summary ---
Author Organization [place] Address [address] [facility] [place] [address] Care Team Providers Care Estate Conservator Name Role Phone Nelson Chan MD Primary Care Provider + [phone] Nelson Chan MD Unavailable [phone] Chris Mcdaniel PA-C Unavailable [phone] Nelson Chan MD Unavailable [phone] Encounter Details Date Type Department Care Team (Late st Contact Info) Description 09/28/[address] 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 Gender Identity Female 05/29/2018 3:24 PM CDT Sexual Orientation Straight 05/29/2018 3: 25 PM CDT documented as of this encounter Plan of Treatment Not on file documented as of this encounter Visit Diagnoses Not on filedocumented in this encounter Care Teams Estate Conservator Relationship Specialty Start Date End Date Nelson Chan MD [address] [place] [address] PCP - General 06/18/04 Nelson Chan MD [address] [place] [address] Assigned PCP 08/25/19 01/21/22 Chris Mcdaniel PA-C [address] [address] Assigned Neuroscience Provider 04/22/20 02/11/22 Nelson Chan MD [address] [place] [address] Assigned PCP 04/02/22 10/07/22 documented as of this encounter
--- OUTSIDE RECORDS SUMMARY | 2023-12-04 11:09 | XMS_ITS | Encounter Summary ---
Author Organization [place] Address [address] [facility] [place] [address] Care Team Providers Care Lead Customer Service Representative Name Role Phone Nelson Chan MD Primary Care Provider + [phone] Nelson Chan MD Unavailable [phone] Chris McdanielC Unavailable [phone] Nelson Chan MD Unavailable [phone] Encounter Details Date Type Department Care Team (Late st Contact Info) Description 07/30/2020 [facility] [place] [facility] Adv[facility] [address] [place] [address] Chris Mcdaniel, PA-C [address] [address] Social History Tobacco Use Types [...] PM CDT Legal Sex Female 3:21 AM MICA MINER 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 Gender Identity Female 05/29/2018 3:24 PM CDT Sexual Orientation Straight 05/29/2018 3: 25 PM CDT documented as of this encounter Plan of Treatment Not on file documented as of this encounter Visit Diagnoses Not on filedocumented in this encounter Care Teams Lead Customer Service Representative Relationship Specialty Start Date End Date Nelson Chan MD [address] [place] [address] PCP - General 06/18/04 Nelson Chan MD [address] [place] [address] Assigned PCP 08/25/19 01/21/22 Chris Mcdaniel PA-C [address] [address] Assigned Neuroscience Provider 04/22/20 02/11/22 Nelosn Chan MD [address] [place] [address] Assigned PCP 04/02/22 10/07/22 documented as of this encounter
--- OUTSIDE RECORDS SUMMARY | 2023-12-04 11:09 | XMS_ITS | Encounter Summary ---
Author Organization [place] Address [facility] [place] [address] Care Team Providers Care Hearing Health Technician Name Role Phone Nelson Chan MD Primary Care Provider + [phone] Nelson Chan MD Unavailable [phone] Chris Mcdaniel PA-C Unavailable [phone] Nelson Chan MD Unavailable [phone] Reason for Visit * Reason Comments Medication Refill Encounter Details Date Type Department Care Team (Late st Contact Info) Description 12/22/2020 Refill [facility] [address] [phone] Nelson Chan MD [address] [address] Medication Refill Social History Tobacco Use Types [...] PM CDT Legal Sex Female 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 Gender Identity Female 05/29/2018 3:24 PM CDT Sexual Orientation Straight 05/29/2018 3: 25 PM CDT documented as of this encounter Plan of Treatment Not on file documented as of this encounter Visit Diagnoses Diagnosis Gastroesophageal reflux disease without esophagitis Esophageal reflux documented in this encounter Care Teams Hearing Health Technician Relationship Specialty Start Date End Date Nelson Chan MD [address] [place] [address] PCP - General 06/18/04 Nelson Chan MD [address] [place] [address] Assigned PCP 08/25/19 01/21/22 Chris Mcdaniel PA-C [address] [address] Assigned Neuroscience Provider 04/22/20 02/11/22 Nelson Chan MD [address] [place] [address] Assigned PCP 04/02/22 10/07/22 documented as of this encounter
--- OUTSIDE RECORDS SUMMARY | 2023-12-04 11:09 | XMS_ITS | Encounter Summary ---
Author Organization [place] Address [address] [facility] [place] [address] Care Team Providers Care Breaker Layer Name Role Phone Nelson Chan MD Primary Care Provider + [phone] Nelson Chan MD Unavailable [phone] Sage Kincaid MD Unavailable [phone] Chris Mcdaniel PA-C Unavailable [phone] Chris Mcdaniel PA-C Unavailable [phone] Nelson Chan MD Unavailable [phone] Reason for Visit * Reason Onset Date Comments Patient Request 07/19/2019 [facility] for trans erik of cpap prescription and sleep study Encounter Details Date Type Department Care Team (Late st Contact Info) Description 07/19/2019 Telephone [facility] [place] [address] [facility] [address] [place] [address] Dayne Blue PA [address] [place] [address] [address] [place] [address] Patient Request (Requet for transfer [...] PM CDT Legal Sex Female 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( ). She has most recently seen Dr. Kincaid on 05-31-18 Phone number to reach patient: Home number on file [phone] (home) Best Time: any Can we leave a detailed message on this number? YES Travel screening: Negative documented in this encounter Plan of Treatment Not on file documented as of this encounter Visit Diagnoses Not on filedocumented in this encounter Care Teams Breaker Layer Relationship Specialty Start Date End Date Nelson Chan MD [address] [place] [address] PCP - General 06/18/04 Nelson Chan MD [address] [place] [address] Assigned PCP 08/25/19 01/21/22 [place] [address] [place] [address] Assigned Sleep Provider 11/29/1912/20 Chris Mcdaniel PA-C [address] [place] [address] [place] [address] Assigned Sleep Provider 04/22/20 Chris Mcdaniel PA-C [address] [place] [address] [place] [address] Assigned Neuroscience Provider 04/22/20 02/11/22 Nelson Chan MD [address] [place] [address] Assigned PCP 04/02/22 10/07/22 documented as of this encounter
--- OUTSIDE RECORDS SUMMARY | 2023-12-04 11:09 | XMS_ITS | Referral Summary ---
Author Organization [place] Address [facility] [place] [address] Care Team Providers Care Green Tire Inspector Name Role Phone Nelson Topete MD Primary Care Provider [phone] Allergies Active Allergy Reactions Criticality Noted Date Comments No Known Allergies 01/22/2002 Medications celecoxib (CELEBREX) 200 MG capsuleIndication s:Spinal stenosis, lumbar region, without neurogenic claudication Take 1 capsule (200 mg) by mouth daily 30 capsule 11 0 Active CHANTIX CONTINUING MONTH ANGELINA 1 MG tabletIndications :Tobacco abuse Take 1 tablet (1 mg) by mouth 2 times daily 56 tablet 0 Active lisinopril-hydroc hlorothiazide (ZESTORETIC) 10-12.5 MG tablet Take 1 tablet by mouth daily 1 Active atorvastatin (LIPITOR) 10 MG tablet 1 Active omeprazole (PRILOSEC) [address] capsuleIndication s:Gastroesophagea l reflux disease without esophagitis TAKE 1 CAPSULE BY MOUTH DAILY 90 capsule 2 Active Active Problems Problem Noted Date Diagnosed Date Morbid obesity 03/08/2018 Acute appendicitis 10/25/2013 Smoker 02/26/2012 [place] (obstructive sleep apnea) 06/01/2011 Diverticulosis of colon 06/01/2011 CARDIOVASCULAR SCREENING; LDL GOAL LESS THAN 160 12/06/2009 Menopausal and postmenopausal disorder 3 Overview (11/06/2014): Problem list name updated by automated process. Provider to review Spinal stenosis, lumbar ofelia on, without neurogenic claudication 08/26/2002 Tobacco abuse 01/21/2002 Esophageal reflux 01/21/2002 Resolved Problems Problem Noted Date Diagnosed Date Resolved Date Acute pain of left shoulder 12/16/2019 02/27/2020 Rotator cuff impingement syn drome of left shoulder 12/16/2019 02/27/2020 Advanced directives, counseling/discussion 01/12/2011 07/24/2023 Overview (01/12/2011): Advance Directive Problem List Overview: Name Relationship Phone Primary Health Care Agent Alternative Health Care Agent Discussed advance care planning with patient; information given to patient to review. 01/12/2011 Immunizations Name Administration Dates Next Due TDAP [...] School Help Needed Not on file 11/20 Comments No Sex and Gender Information Value Date Recorded Sex Assigned at Female 05/29/2018 3:24 PM CDT Legal Sex Female 3:21 AM BUSINESS SYSTEMS ARCHITECT Gender Identity Female 05/29/2018 3:24 PM CDT Sexual Orientation Straight 05/29/2018 3: 25 PM CDT Last Filed Vital Signs Vital Sign Reading Time Taken Comments Blood Pressure 170/100 01/09/2020 2:48 PM BUSINESS SYSTEMS ARCHITECT Pulse 100 01/09/2020 2:48 PM BUSINESS SYSTEMS ARCHITECT Temperature 36.6 ??C (97.9 ??F) 01/09/2020 2:48 PM CS T Respiratory Rate 18 01/09/2020 2:48 PM BUSINESS SYSTEMS ARCHITECT Oxygen Saturation 97% 01/09/2020 2:48 PM BUSINESS SYSTEMS ARCHITECT Inhaled Oxygen Concentration - - Weight 136.1 kg (300 lb) 08/06/2020 9:00 AM CDT Height 162.6 cm (5' 4) 08/06/2020 9:00 AM CDT Body Mass Index 51.49 08/06/2020 9:00 AM CDT Plan of Treatment Not on file Procedures Procedure Name Priority Date/Time Associated Diagnosis Comments MA SCREENING DIGITAL BILATERAL Routine 05/08/2021 10:22 PM CDT Visit for screening mammogram COLONOSCOPY Routine 01/08/2020 11:37 AM BUSINESS SYSTEMS ARCHITECT BASIC METABOLIC PANEL STAT 02/02/2018 12:00 AM BUSINESS SYSTEMS ARCHITECT PAP IMAGED THIN LAYER SCREEN Routine 06/06/2014 12:00 AM CDT Screening for malignant neoplasm of cervix Routine general medical examination at a [facility] care facility LIPID REFLEX TO DIRECT [...] examination will be communicated to the patient. us Nelson Topete MD IMG MAMMOGRAPHY ORDERABLES Final Result * COLONOSCOPY (01/08/2020 11:37 AM BUSINESS SYSTEMS ARCHITECT) COLONOSCOPY [facility] Patient Name: Britni Avila ?? Procedure Date: 01/08/2020 11:37 AM ? Date of : 1955 ? Admit Type: Outpatient Age: 64 ? Gender: Female Attending MD: Edmundo Mabry MD ?? Total Sedation Time: 17_minutes continuous bedside 1:1 Instrument Name: 223 - Adult Colonoscope Procedure: ?Colonoscopy Indications: ?High risk colon cancer surveillance: Personal ?history of colonic polyps Providers: ?Edmundo Mabry MD (Doctor) Referring : ? Medicines: ?Propofol per Anesthesia Complications: ?No [...] continuously. The ?Olympus Adult Colonoscope, Model # CF-IX021F, ?[place] # 223, SN # [id number] was introduced through ?the anus and advanced [...] Procedure Code(s): ? --- Professional --- ? 90119, Colonoscopy, flexible; with removal of tumor(s), polyp(s), or ? other lesion(s) by snare technique Diagnosis Code(s): ? --- Professional --- ? K63.5, Polyp of colon CPT copyright 2019 [employer]. All rights reserved. The codes documented in this report are preliminary and upon quail farmer review may be revised to meet current compliance requirements. Electronically signed by Edmundo Mabry MD __ Edmundo Mabry MD 01/08/2020 1:20:03 PM I was physically present for the entire viewing portion of the exam. Edmundo Mabry MD Number of Addenda: 0 Note Initiated On: 01/08/2020 11:37 AM MRN: ?[id number] Procedure Date: ? 01/08/2020 11:37:27 AM Scope Withdrawal Time: 0 hours 7 minutes 17 seconds Total Procedure Duration: 0 hours 13 minutes 1 second Estimated Blood Loss: ? Scope In: 12:28:18 PM Scope Out: 12:41:19 PM RADIOLOGY RESULTS 01/08/2020 11:3 7 AM BUSINESS SYSTEMS ARCHITECT us Edmundo Mabry MD PROCEDURES Final Result RADIOLOGY RESULTS * (ABNORMAL) Basic metabolic panel (02/02/2018 12:00 AM BUSINESS SYSTEMS ARCHITECT) Sodium 142 133 - 144 mmol/L 02/02/2018 12:26 AM [facility] Potassium 3.6 3.4 - 5.3 mmol/L 02/02/2018 12:26 AM [facility] Chloride 109 94 - 109 mmol/L 02/02/2018 12:26 AM [facility] Carbon Dioxide 28 20 - 32 mmol/L 02/02/2018 12:26 AM [facility] Anion Gap 5 3 - 14 mmol/L 02/02/2018 12:26 AM [facility] Glucose 100(H) 70 - 99 mg/dL 02/02/2018 12:26 AM [facility] Urea Nitrogen 9 7 - 30 mg/dL 02/02/2018 12:26 AM [facility] Creatinine 0.59 0.52 - 1.04 mg/dL 02/02/2018 12:26 AM [facility] GFR Estimate >90 >60 mL/min/{1. 73_m2} 02/02/2018 12:26 AM [facility] Comment: Non GFR Calc Starting 01/23/2018, serum creatinine based estimated GFR (eGFR) will be calculated using the Chronic Kidney Disease Epidemiology Collaboration (CKD-EPI) equation. GFR Estimate If Black >90 >60 mL/min/{1. 73_m2} 02/02/2018 12:26 AM [facility] Comment: GFR Calc Starting 01/23/2018, serum creatinine based estimated GFR (eGFR) will be calculated using the Chronic Kidney Disease Epidemiology Collaboration (CKD-EPI) equation. Calcium 9.2 8.5 - 10.1 mg/dL 02/02/2018 12:26 AM [facility] Blood specimen (specimen) 02/02/2018 02/02/2018 12:01 AM BUSINESS SYSTEMS ARCHITECT us Mirna KENDRICK LAB - BLOOD ORDERABLES Fi nal Result [facility] [place] [address], [facility] [phone] * PAP IMAGED THIN LAYER SCREEN (06/06/2014 12:00 AM CDT) PAP NIL COPATH Copath Report Patient Name: BRITIN AVILA MR#: [id number] Specimen #: [id number] Collected: 06/06/2014 Received: 06/09/2014 Reported: 06/11/2014 13:53 [...] Edson Coyle M.D. Processed and screened at [facility] CLINICAL HISTORY: LMP: 07/08/03 Post Menopausal, Previous normal pap Date of Last Pap: 01/12/11, Papanicolaou Test Limitations: ??Cervical cytology is a screening test with limited sensitivity; regular screening is critical for cancer prevention; Pap tests are primarily effective for the diagnosis/preventi on of squamous cell carcinoma, not adenocarcinomas or other cancers. TESTING LAB LOCATION: [address] ??[id number] COLLECTION SITE: Client: ??[facility] Location: OXIM (S) COPATH Cytologic material (specimen) 06/06/2014 06/09/2014 10:13 AM CDT us Nelson Topete MD LAB - OPTIME CLINICAL SPEC IMEN Final Result COPATH * (ABNORMAL) Lipid panel reflex to direct LDL (05/30/2011 9:48 AM CDT) Cholesterol 208(H) 0 - 200 mg/dL [facility] Comment: LDL Cholesterol is the primary guide to therapy. The NCEP recommends further evaluation of: patients with cholesterol greater than 200 mg/dL if additional risk factors are present, cholesterol greater than 240 mg/dL, triglycerides greater than 150 mg/dL, or HDL less than 40 mg/dL. Triglycerides 195(H) 0 - 150 mg/dL [facility] HDL Cholesterol 47(L) 50 - 110 mg/dL [facility] LDL Cholesterol Calculated 122 0 - 129 mg/dL [facility] Comment: LDL Cholesterol is the primary guide to therapy: LDL-cholesterol goal in high risk patients is <100 mg/dL and in very high risk patients is <70 mg/dL. VLDL-Cholesterol 39(H) 0 - 30 mg/dL [facility] Cholesterol/HDL Ratio 4.4 0.0 - 5.0 [facility] Blood specimen (specimen) 05/30/2011 9:48 AM CDT 05/30/2011 9:53 AM CDT us Nelson Topete MD LAB - BLOOD ORDERABLES Fin al Result Performing Organization Address [facility]/State/ZIP Co de Phone Number [address] [address] * Dexa hip/pelvis/spine* (01/12/2011) Anatomical Region Laterality Modality Dexa Other Impressions 01/12/2011 BONE DENSITOMETRY [address] [address] 01/12/2011 Patient: ??Britni Avila Chart: [id number] : ??1955 Age: ??55 year old Sex: ??female Referring provider: ??CINTHYA TOPETE Procedure: ??Bone density scanning was performed using DEXA technology performed on a LayerBoom scanner. ??Reporting is completed in the form of a T-score. ?? The T-score represents the standard deviation from peak bone mass based on a young healthy adult. Book Shelver performing scan: ??Nuria Cruz Reference T-Scores: ? [...] to bone densitometry performed on the same Proactive Comfort machine on 07/14. ??In the interim, there is the suggestion of a possible trend towards worsening of the lumbar spine, and no significant change of the femoral neck. Impression: Osteopenia (low bone mass) Suggest verification of adequate calcium and vitamin D intake. Dexa scan read and electronically signed by Tenzin Mcgrath M.D. Electronically filed by Zack Altamirano ??02/02/2011 ??3:05 PM us Nelson Topete MD IMG DEXA ORDERABLES Final Result from Last 3 Months or Most Recently Relevant to Health Maintenance Insurance [employer] MED[employer]ARE Advance Directives For more information, please contact: [phone] * Full Code (Latest Code Status on File) Date Activated Date Inactivated Comments 10/25/2013 6:13 PM 10/26/2013 12:50 PM Care Teams Green Tire Inspector Relationship Specialty Start Date End Date Nelson Topete MD [address] [place] [address] PCP - General 06/18/04
--- OUTSIDE RECORDS SUMMARY | 2023-12-04 11:09 | XMS_ITS | Encounter Summary ---
Author Organization [place] Address [address] [facility] [place] [address] Care Team Providers Care Public Safety Teacher Name Role Phone Nelson Chan MD Primary Care Provider + [phone] Nelson Chan MD Unavailable +[phone] Nelson Chan MD Unavailable +[phone] Nelson Chan MD Unavailable +[phone] Sage Kincaid MD Unavailable +[phone] Chris Mcdaniel PA-C Unavailable +[phone] Chris Mcdaniel PA-C Unavailable +[phone] Nelson Chan MD Unavailable +[phone] Reason for Visit * Reason Onset Date Comments Refill Request 05/31/2015 Encounter Details Date Type Department Care Team (Late st Contact Info) Description 05/31/2015 MyC Refill [facility] [address] [address] Nelson Chan MD [address] [phone] Refill Request Social History Tobacco Use Types Packs/Day Years Used Date Smoking Tobacco: Former Cigarettes 1 40 S tarted: 10/07/2012 Smokeless Tobacco: Never Alcohol Use Standard Drinks/Week Comments No 0 (1 standard drink = 0.6 oz pur e alcohol) Comments No Sex and Gender Information Value Date Recorded Sex Assigned at Female 05/29/2018 3:24 PM CDT Legal Sex Female 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 I asked for the wrong one. I need the starter pack. documented in this encounter Plan of Treatment Not on file documented as of this encounter Visit Diagnoses Diagnosis Tobacco abuse Tobacco use disorder documented in this encounter Care Teams Public Safety Teacher Relationship Specialty Start Date End Date Nelson Chan MD [address] [address] PCP - General 06/18/04 Nelson Chan MD [address] [place] [address] PCP - Assigned PCP 02/25/13 04/10/18 Nelson Chan MD [address] [place] [address] Assigned PCP 02/25/13 06/30/18 Nelson Chan MD [address] [place] [address] Assigned PCP 08/25/19 01/21/22 [place] [address] [address] Assigned Sleep Provider 11/29/1912/20 Chris Mcdaniel PA-C [address] [address] Assigned Sleep Provider 04/22/20 Chris Mcdaniel PA-C [address] [address] Assigned Neuroscience Provider 04/22/20 02/11/22 Nelson Chan MD [address] [place] [address] Assigned PCP 04/02/22 10/07/22 documented as of this encounter
--- OUTSIDE RECORDS SUMMARY | 2023-12-04 11:09 | XMS_ITS | Encounter Summary ---
Author Organization [place] Address [address] [facility] [place] [address] Care Team Providers Care Sample Color Maker Name Role Phone Nelson Chan MD Primary Care Provider + [phone] Nelson Chan MD Unavailable [phone] Nelson Chan MD Unavailable +[phone] Nelson Chan MD Unavailable +[phone] Sage Kincaid MD Unavailable +[phone] Chris Mcdaniel PA-C Unavailable +[phone] Chris Mcdaniel PA-C Unavailable +[phone] Nelson Chan MD Unavailable +[phone] Encounter Details Date Type Department Care Team (Latest Contact Info) Description 09/20/2011 [facility] [address] [address] Nelson Chan MD [address] [address] Back pain (Primary Dx) Social History Tobacco Use Types Packs/Day Years Used Date Smoking Tobacco: Every Day Cigarettes 1 40 Smokeless Tobacco: Never Alcohol Use Standard Drinks/Week Comments No 0 (1 standard drink = 0.6 oz pur e alcohol) Comments No Sex and Gender Information Value Date Recorded Sex Assigned at Female 05/29/2018 3:24 PM CDT Legal Sex Female 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 AM LINING REPAIRER Gender Identity Female 05/29/2018 3:24 PM [...] unspecified documented in this encounter Care Teams Sample Color Maker Relationship Specialty Start Date End Date Nelson Chan MD [address] [address] PCP - General 06/18/04 Nelson Chan MD [address] [place] [address] PCP - Assigned PCP 02/25/13 04/10/18 Nelson Chan MD [address] [place] [address] Assigned PCP 02/25/13 06/30/18 Nelson Chan MD [address] [place] [address] Assigned PCP 08/25/19 01/21/22 [place] [address] [place] [address] Assigned Sleep Provider 11/29/1912/20 Chris Mcdaniel PA-C [address] [address] Assigned Sleep Provider 04/22/20 Chris Mcdaniel PA-C [address] [address] Assigned Neuroscience Provider 04/22/20 02/11/22 Nelson Chan MD [address] [place] [address] Assigned PCP 04/02/22 10/07/22 documented as of this encounter
--- OUTSIDE RECORDS SUMMARY | 2023-12-04 11:09 | XMS_ITS | Encounter Summary ---
Author Organization [place] Address [address] [facility] [place] [address] Care Team Providers Care Therapeutic Sales Specialist Name Role Phone Nelson Chan MD Primary Care Provider + [phone] Nelson Chan MD Unavailable [phone] Nelson Chan MD Unavailable +[phone] Nelson Chan MD Unavailable +[phone] Sage Kincaid MD Unavailable +[phone] Chris Mcdaniel PA-C Unavailable +[phone] Chris Mcdaniel PA-C Unavailable [phone] Nelson Chan MD Unavailable +[phone] Encounter Details Date Type Department Care Team (Late st Contact Info) Description 02/09/2017 [facility] [address] [address] Nelson Chan MD [address] [phone] Social History Tobacco Use Types Packs/Day Years Used Date Smoking Tobacco: Former Cigarettes 1 40 S tarted: 10/07/2012 Smokeless Tobacco: Never Alcohol Use Standard Drinks/Week Comments No 0 (1 standard drink = 0.6 oz pur e alcohol) Comments No Sex and Gender Information Value Date Recorded Sex Assigned at Female 05/29/2018 3:24 PM CDT Legal Sex Female 3:21 AM RN ACUTE Gender Identity Female 05/29/2018 3:24 PM CDT Sexual Orientation Straight 05/29/2018 3: 25 PM CDT documented as of this encounter Plan of Treatment Not on file documented as of this encounter Visit Diagnoses Not on filedocumented in this encounter Care Teams Therapeutic Sales Specialist Relationship Specialty Start Date End Date Nelson Chan MD [address] [place] [address] PCP - General 06/18/04 Nelson Chan MD [address] [place] [address] PCP - Assigned PCP 02/25/13 04/10/18 Nelson Chan MD [address] [place] [address] Assigned PCP 02/25/13 06/30/18 Nelson Chan MD [address] [place] [address] Assigned PCP 08/25/19 01/21/22 [place] [address] [place] [address] Assigned Sleep Provider 11/29/1912/20 Chris Mcdaniel PA-C [address] [address] Assigned Sleep Provider 04/22/20 Chris Mcdaniel PA-C [address] [address] Assigned Neuroscience Provider 04/22/20 02/11/22 Nelson Chan MD [address] [address] Assigned PCP 04/02/22 10/07/22 documented as of this encounter
--- OUTSIDE RECORDS SUMMARY | 2023-12-04 11:09 | XMS_ITS | Encounter Summary ---
Author Organization [place] Address [address] [facility] [place] [address] Care Team Providers Care Telephone Worker Name Role Phone Nelson Chan MD Primary Care Provider + [phone] Nelson Chan MD Unavailable [phone] Nelson Chan MD Unavailable [phone] Nelson Chan MD Unavailable +[phone] Sage Kincaid MD Unavailable +[phone] Chris Mcdaniel PA-C Unavailable +[phone] Chris Mcdaniel PA-C Unavailable [phone] Nelson Chan MD Unavailable +[phone] Encounter Details Date Type Department Care Team (Late st Contact Info) Description 02/13/2014 [facility] [address] [address] Nelson Chan MD [address] [id number] Social History Tobacco Use Types Packs/Day Years Used Date Smoking Tobacco: Former Cigarettes 1 40 S tarted: 10/07/2012 Smokeless Tobacco: Never Alcohol Use Standard Drinks/Week Comments No 0 (1 standard drink = 0.6 oz pur e alcohol) Comments No Sex and Gender Information Value Date Recorded Sex Assigned at Female 05/29/2018 3:24 PM CDT 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 Gender Identity Female 05/29/2018 3:24 PM CDT Sexual Orientation Straight 05/29/2018 3: 25 PM CDT documented as of this encounter Plan of Treatment Not on file documented as of this encounter Visit Diagnoses Not on filedocumented in this encounter Care Teams Telephone Worker Relationship Specialty Start Date End Date Nelson Chan MD [address] [place] [address] PCP - General 06/18/04 Nelson Chan MD [address] [place] [address] PCP - Assigned PCP 02/25/13 04/10/18 Nelson Chan MD [address] [place] [address] Assigned PCP 02/25/13 06/30/18 Nelson Chan MD [address] [place] [address] Assigned PCP 08/25/19 01/21/22 [place] [address] [place] [address] Assigned Sleep Provider 11/29/1912/20 Chris Mcdaniel PA-C [address] [address] Assigned Sleep Provider 04/22/20 Chris Mcdaniel PA-C [address] [address] Assigned Neuroscience Provider 04/22/20 02/11/22 eNlson Chan MD [address] [address] Assigned PCP 04/02/22 10/07/22 documented as of this encounter
--- OUTSIDE RECORDS SUMMARY | 2023-12-04 11:09 | XMS_ITS | Encounter Summary ---
Author Organization [place] Address [facility] [address] Care Team Providers Care Fly Raiser Lockstitch Name Role Phone Nelson Chan MD Primary Care Provider + [phone] Nelson Chan MD Unavailable +[phone] Chris Mcdaniel PA-C Unavailable +[phone] Chrsi Mcdaniel PA-C Unavailable +[phone] Nelson Chan MD Unavailable +[phone] Reason for Visit * Reason Comments Medication Refill Encounter Details Date Type Department Care Team (Late st Contact Info) Description 12/31/2019 Refill [facility] [address] [address] Nelson Chan MD [address] [address] Medication Refill Social History Tobacco Use Types [...] PM CDT Legal Sex Female 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 No / Unsure 12/31/2019 5:41 PM EDGE TRIMMER documented as of this encounter Plan of Treatment Not on file documented as of this encounter Visit Diagnoses Diagnosis Tobacco abuse Tobacco use disorder documented in this encounter Care Teams Fly Raiser Lockstitch Relationship Specialty Start Date End Date Nelson Chan MD [address] [place] [address] PCP - General 06/18/04 Nelson Chan MD [address] [place] [address] Assigned PCP 08/25/19 01/21/22 Chris Mcdaniel PA-C [address] [place] [address] Assigned Sleep Provider 04/22/20 Chris Mcdaniel PA-C [address] [place] [address] Assigned Neuroscience Provider 04/22/20 02/11/22 Nelson Chan MD [address] [place] [address] Assigned PCP 04/02/22 10/07/22 documented as of this encounter
--- OUTSIDE RECORDS SUMMARY | 2023-12-04 11:09 | XMS_ITS | Encounter Summary ---
Author Organization [place] Address [address] [place] [address] Care Team Providers Care Assistant Buyer Name Role Phone Nelson Chan MD Primary Care Provider + [phone] Nelson Chan MD Unavailable +[phone] Nelson Chan MD Unavailable + [phone] Nelson Chan MD Unavailable +[phone] Sage Kincaid MD Unavailable +[phone] Chris Mcdaniel PA-C Unavailable +[phone] Chris Mcdaniel PA-C Unavailable [phone] Nelson Chan MD Unavailable +[phone] Encounter Details Date Type Department Care Team (Late st Contact Info) Description 06/20/2011 [facility] [place] Social History Tobacco Use Types Packs/Day Years Used Date Smoking Tobacco: Every Day Cigarettes 1 40 Smokeless Tobacco: Never Alcohol Use Standard Drinks/Week Comments No 0 (1 standard drink = 0.6 oz pur e alcohol) Comments No Sex and Gender Information Value Date Recorded Sex Assigned at Female 05/29/2018 3:24 PM CDT 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 Gender Identity Female 05/29/2018 3:24 PM CDT Sexual Orientation Straight 05/29/2018 3: 25 PM CDT documented as of this encounter Plan of Treatment Not on file documented as of this encounter Visit Diagnoses Not on filedocumented in this encounter Care Teams Assistant Buyer Relationship Specialty Start Date End Date Nelson Chan MD [address] [place] [address] PCP - General 06/18/04 Nelson Chan MD [address] [place] [address] PCP - Assigned PCP 02/25/13 04/10/18 Nelson Chan MD [address] [place] [address] Assigned PCP 02/25/13 06/30/18 Nelson Chan MD [address] [place] [address] Assigned PCP 08/25/19 01/21/22 [place] [address] [place] [address] Assigned Sleep Provider 11/29/1912/20 Chris Mcdaniel PA-C [address] [place] [address] Assigned Sleep Provider 04/22/20 Chris Mcdaniel PA-C [address] [place] [address] Assigned Neuroscience Provider 04/22/20 02/11/22 Nelson Chan MD [address] [place] [address] Assigned PCP 04/02/22 10/07/22 documented as of this encounter
--- OUTSIDE RECORDS SUMMARY | 2023-12-04 11:09 | XMS_ITS | Encounter Summary ---
Author Organization [place] Address [address] [facility] [place] [address] Care Team Providers Care Secretary Specialist Name Role Phone Nelson Chan MD Primary Care Provider + [phone] Nelson Chan MD Unavailable [phone] Nelson Chan MD Unavailable + [phone] Nelson Chan MD Unavailable +[phone] Sage Kincaid MD Unavailable [phone] Chris Mcdaniel PA-C Unavailable +[phone] Chris Mcdaniel PA-C Unavailable [phone] Nelson Chan MD Unavailable [phone] Encounter Details Date Type Department Care Team (Late st Contact Info) Description 01/19/[address] [address] [place] Social History Tobacco Use Types Packs/Day Years Used Date Smoking Tobacco: Every Day Cigarettes 1 40 Smokeless Tobacco: Never Alcohol Use Standard Drinks/Week Comments No 0 (1 standard drink = 0.6 oz pur e alcohol) Comments No Sex and Gender Information Value Date Recorded Sex Assigned at Female 05/29/2018 3:24 PM CDT Legal Sex Female 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 Gender Identity Female 05/29/2018 3:24 PM CDT Sexual Orientation Straight 05/29/2018 3: 25 PM CDT documented as of this encounter Plan of Treatment Not on file documented as of this encounter Visit Diagnoses Not on filedocumented in this encounter Care Teams Secretary Specialist Relationship Specialty Start Date End Date Nelson Chan MD [address] [place] [address] PCP - General 06/18/04 Nelson Chan MD [address] [place] [address] PCP - Assigned PCP 02/25/13 04/10/18 Nelson Chan MD [address] [place] [address] Assigned PCP 02/25/13 06/30/18 Nelson Chan MD [address] [place] [address] 0[address]60 Assigned PCP 08/25/19 01/21/22 [place] [address] [address] Assigned Sleep Provider 11/29/1912/20 Chris Mcdaniel PA-C [address] [id number] Assigned Sleep Provider 04/22/20 Chris Mcdaniel PA-C [address] [id number] Assigned Neuroscience Provider 04/22/20 02/11/22 Nelson Chan MD [address] [place] [address] Assigned PCP 04/02/22 10/07/22 documented as of this encounter
--- OUTSIDE RECORDS SUMMARY | 2023-12-04 11:09 | XMS_ITS | Encounter Summary ---
Author Organization [place] Address [address] [facility] 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 Gender Identity Female 05/29/2018 3:24 PM CDT Sexual Orientation Straight 05/29/2018 3: 25 PM CDT documented as of this encounter Plan of Treatment Not on file documented as of this encounter Visit Diagnoses Not on filedocumented in this encounter Care Teams Trust Administrator Relationship Specialty Start Date End Date Nelson Chan MD [address] [place] [address] PCP - General 06/18/04 Nelson Chan MD [address] [place] [address] Assigned PCP 08/25/19 01/21/22 Chris Mcdaniel PA-C [address] [address] Assigned Neuroscience Provider 04/22/20 02/11/22 Nelson Chan MD [address] [place] [address] Assigned PCP 04/02/22 10/07/22 documented as of this encounter
--- OUTSIDE RECORDS SUMMARY | 2023-12-04 11:09 | XMS_ITS | Encounter Summary ---
Author Organization [place] Address [address] [facility] [place] [address] Care Team Providers Care Etcher Electrolytic Name Role Phone Nelson Chan MD Primary Care Provider + [phone] Nelson Chan MD Unavailable [phone] Chris Mcdaniel PA-C Unavailable +[phone] Nelson Chan MD Unavailable [phone] Reason for Visit * Reason Comments Sleep Problem Encounter Details Date Type Department Care Team (Late st Contact Info) Description 09/22/2021 Orders Only [facility] [address] [address] Chris Mcdaniel, PA-C 6363 [facility] [address] [place] [address] Obstructive sleep apnea (adult) (pediatric) [...] PM CDT Legal Sex Female 3: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 Gender Identity Female 05/29/2018 3:24 PM CDT Sexual Orientation Straight 05/29/2018 3 :25 PM CDT documented as of this encounter Plan of Treatment Not on file documented as of this encounter Visit Diagnoses Diagnosis Obstructive sleep apnea (adult) (pediatric)- Primary documented in this encounter Care Teams Etcher Electrolytic Relationship Specialty Start Date End Date Nelson Chan MD [address] [address] PCP - General 06/18/04 Nelson Chan MD [address] [address] Assigned PCP 08/25/19 01/21/22 Chris Mcdaniel PA-C [address] [address] Assigned Neuroscience Provider 04/22/20 02/11/22 Nelson Chan MD [address] [place] [address] Assigned PCP 04/02/22 10/07/22 documented as of this encounter
--- OUTSIDE RECORDS SUMMARY | 2023-12-04 11:09 | XMS_ITS | Encounter Summary ---
Author Organization [place] Address [address] [facility] 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
--- OUTSIDE RECORDS SUMMARY | 2023-12-04 11:09 | XMS_ITS | Encounter Summary ---
Author Organization [place] Address [facility] 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 Mary Swain RN [facility] ONAL LINES ACCOUNT EXECUTIVE documented in this encounter Plan of Treatment Not on file documented as of this encounter Visit Diagnoses Diagnosis Gastroesophageal reflux disease without esophagitis Esophageal reflux documented in this encounter Care Teams Roof Slater Relationship Specialty Start Date End Date Nelson Chan MD [address] [address] PCP - General 06/18/04 Nelson Chan MD [address] [address] Assigned PCP 08/25/19 01/21/22 Chris Mcdaniel PA-C [address] [address] Assigned Neuroscience Provider 04/22/20 02/11/22 Nelson Chan MD [address] [place] [address] Assigned PCP 04/02/22 10/07/22 documented as of this encounter
--- OUTSIDE RECORDS SUMMARY | 2023-12-04 11:09 | XMS_ITS | Encounter Summary ---
Author Organization [place] Address [address] [facility] [place] [address] Care Team Providers Care Sales Audit Clerk Name Role Phone Nelson Chan MD Primary Care Provider + [phone] Nelson Chan MD Unavailable [phone] Nelson Chan MD Unavailable [phone] Nelson Chan MD Unavailable [phone] Sage Kincaid MD Unavailable [phone] Chris Mcdaniel PA-C Unavailable +[phone] Chris Mcdaniel PA-C Unavailable [phone] Nelson Chan MD Unavailable [phone] Reason for Visit * Reason Onset Date Comments Refill Request 05/29/2015 Encounter Details Date Type Department Care Team (Late st Contact Info) Description 05/29/2015 MyC Refill [facility] [address] [address] Nelson Chan MD [address] [phone] Refill Request Social History Tobacco Use Types Packs/Day Years Used Date Smoking Tobacco: Former Cigarettes 1 40 S tarted: 10/07/2012 Smokeless Tobacco: Never Alcohol Use Standard Drinks/Week Comments No 0 (1 standard drink = 0.6 oz pur e alcohol) Comments No Sex and Gender Information Value Date Recorded Sex Assigned at Female 05/29/2018 3:24 PM CDT 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 Gender Identity Female 05/29/2018 3:24 PM CDT Sexual Orientation Straight 05/29/2018 3: 25 PM CDT documented as of this encounter Miscellaneous Notes * Telephone Encounter - Triny Murillo RN - 05/29/2015 6:59 AM CDT Last office visit 06/20 * Telephone Encounter - Triny Murillo RN - 05/29/2015 6:59 AM CDTMessage from MyChart: Original authorizing provider: MD Jeanne Washington would like a refill of the following medications: varenicline (CHANTIX) 1 MG tablet [Nelson Chan MD] Preferred pharmacy: [facility] [address] [place] [address] Comment: documented in this encounter Plan of Treatment Not on file documented as of this encounter Visit Diagnoses Diagnosis Tobacco abuse Tobacco use disorder documented in this encounter Care Teams Sales Audit Clerk Relationship Specialty Start Date End Date Nelson Chan MD [address] [place] [address] PCP - General 06/18/04 Nelson Chan MD [address] [place] [address] PCP - Assigned PCP 02/25/13 04/10/18 Nelson Chan MD [address] [place] [address] Assigned PCP 02/25/13 06/30/18 Nelson Chan MD [address] [place] [address] Assigned PCP 08/25/19 01/21/22 [place] [address] [facility] [address] [place] [address] Assigned Sleep Provider 11/29/1912/20 Chris Mcdaniel PA-C [address] [facility] [address] [place] [address] Assigned Sleep Provider 04/22/20 Chris Mcdaniel PA-C [address] [facility] [address] [place] [address] Assigned Neuroscience Provider 04/22/20 02/11/22 Nelson Chan MD [address] [place] [address] Assigned PCP 04/02/22 10/07/22 documented as of this encounter
--- OUTSIDE RECORDS SUMMARY | 2023-12-04 11:09 | XMS_ITS | Clinical Summary ---
Author Organization [place] Address [facility] [place] [address] Care Team Providers Care Wall Man Name Role Phone Nelson Topete MD Primary Care Provider [phone] Allergies Active Allergy Reactions Criticality Noted Date [...] PM CDT Legal Sex Female 3:21 AM EXECUTIVE DIRECTOR SHELTERED WORKSHOP Gender Identity Female 05/29/2018 3:24 PM CDT Sexual Orientation Straight 05/29/2018 3: 25 PM CDT Last Filed Vital Signs Vital Sign Reading Time Taken Comments Blood Pressure 170/100 01/09/2020 2:48 PM EXECUTIVE DIRECTOR SHELTERED WORKSHOP Pulse 100 01/09/2020 2:48 PM EXECUTIVE DIRECTOR SHELTERED WORKSHOP Temperature 36.6 ??C (97.9 ??F) 01/09/2020 2:48 PM CS T Respiratory Rate 18 01/09/2020 2:48 PM EXECUTIVE DIRECTOR SHELTERED WORKSHOP Oxygen Saturation 97% 01/09/2020 2:48 PM EXECUTIVE DIRECTOR SHELTERED WORKSHOP Inhaled Oxygen Concentration - - Weight 136.1 [...] - PCV) 11/21/1961 HEPATITIS C SCREENING 11/21/1973 LUNG CANCER SCREENING 11/21/2005 ZOSTER IMMUNIZATION (1 of 2) 11/21/2005 DEXA 01/12/2014 01/12/2011, 07/07, 12/18/2002 ADVANCE CARE PLANNING 01/13/2016 01/12/2011, 011 LIPID 05/29/2016 05/30/2011, 10/08, 07/20/2007, Additional history exists DTAP/TDAP/TD IMMUNIZATION (2 - Td or Tdap) 08/05/2018 08/05/2008, 10/23/1997 EYE EXAM 04/08/2020 04/09/2019 FALL RISK ASSESSMENT 11/21/2020 MEDICARE ANNUAL WELLNESS VISIT 11/21/2020 06/06/2014, 04/01/2013, 01/27/2012, Additional history exists GLUCOSE 02/02/2021 02/02/2018, 11/08, 10/16/2015, Additional history exists MAMMO SCREENING 05/08/2022 05/08/2021, 12/08, 11/19/2018, Additional history exists PHQ-2 (once per calendar year) 2023 08/22/2019, 07/01/2015 COVID-19 Vaccine ( - season) 2023 INFLUENZA VACCINE (#1) 2023 COLONOSCOPY 01/07/2025 01/08/2020, 03/2019, 05/07/2013, Additional history exists COLORECTAL CANCER SCREENING 01/07/2025 RSV VACCINE (1 - 1-dose 75+ series) 11/21/2030 PAP Discontinued 06/06/2014, 08/2010, 11/02/2009, Additional history [...] screening mammogram COLONOSCOPY Routine 01/08/2020 11:37 AM EXECUTIVE DIRECTOR SHELTERED WORKSHOP BASIC METABOLIC PANEL STAT 02/02/2018 12:00 AM EXECUTIVE DIRECTOR SHELTERED WORKSHOP PAP IMAGED THIN LAYER SCREEN Routine 06/06/2014 12:00 AM CDT Screening for malignant neoplasm of cervix Routine general medical examination at a [facility] facility LIPID REFLEX TO DIRECT LDL PANEL [...] Final Result * COLONOSCOPY (01/08/2020 11:37 AM EXECUTIVE DIRECTOR SHELTERED WORKSHOP) COLONOSCOPY [facility] Patient Name: Britni Avila ?? Procedure [...] continuously. The ?Olympus Adult Colonoscope, Model # CF-EY213J, ?[place]ora # 223, SN # [id number] was introduced through ?the anus and advanced [...] Procedure Code(s): ? --- Professional --- ? 60912, Colonoscopy, flexible; with removal of tumor(s), polyp(s), or ? other lesion(s) by snare technique Diagnosis Code(s): ? --- Professional --- ? K63.5, Polyp of colon CPT copyright 2019 [employer]. All rights reserved. The codes documented in this report are preliminary and upon account underwriter review may be revised to meet current compliance requirements. Electronically signed by Edmundo Mabry MD __ Edmunod Mabry MD 01/08/2020 1:20:03 PM I was physically present for the entire viewing portion of the exam. Edmundo Mabry MD Number of Addenda: 0 Note Initiated On: 01/08/2020 11:37 AM MRN: ?[id number] Procedure Date: ? 01/08/2020 11:37:27 AM Scope Withdrawal Time: 0 hours 7 minutes 17 seconds Total Procedure Duration: 0 hours 13 minutes 1 second Estimated Blood Loss: ? Scope In: 12:28:18 PM Scope Out: 12:41:19 PM RADIOLOGY RESULTS 01/08/2020 11:3 7 AM EXECUTIVE DIRECTOR SHELTERED WORKSHOP us Edmundo Mabry MD PROCEDURES Final Result RADIOLOGY RESULTS * (ABNORMAL) Basic metabolic panel (02/02/2018 12:00 AM EXECUTIVE DIRECTOR SHELTERED WORKSHOP) Sodium 142 133 - 144 mmol/L 02/02/2018 12:26 AM [facility] Potassium 3.6 3.4 - 5.3 mmol/L 02/02/2018 12:26 AM [facility] Chloride 109 94 - 109 mmol/L 02/02/2018 12:26 AM [facility] Carbon Dioxide 28 20 - 32 mmol/L 02/02/2018 12:26 AM [facility] Anion Gap 5 3 - 14 mmol/L 02/02/2018 12:26 AM [facility] Glucose 100(H) 70 - 99 mg/dL 02/02/2018 12:26 AM [facility] Urea Nitrogen 9 7 - 30 mg/dL 02/02/2018 12:26 AM [facility] Creatinine 0.59 0.52 - 1.04 mg/dL 02/02/2018 12:26 AM [facility] GFR Estimate >90 >60 mL/min/{1. 73_m2} 02/02/2018 12:26 AM [facility] Comment: Non GFR Calc Starting 01/23/2018, serum creatinine based estimated GFR (eGFR) will be calculated using the Chronic Kidney Disease Epidemiology Collaboration (CKD-EPI) equation. GFR Estimate If Black >90 >60 mL/min/{1. 73_m2} 02/02/2018 12:26 AM [facility] Comment: GFR Calc Starting 01/23/2018, serum creatinine based estimated GFR (eGFR) will be calculated using the Chronic Kidney Disease Epidemiology Collaboration (CKD-EPI) equation. Calcium 9.2 8.5 - 10.1 mg/dL 02/02/2018 12:26 AM [facility] Blood specimen (specimen) 02/02/2018 02/02/2018 12:01 AM EXECUTIVE DIRECTOR SHELTERED WORKSHOP us Mirna KENDRICK LAB - BLOOD ORDERABLES Fi nal Result [facility] [place] [address], [facility] [phone] * PAP IMAGED THIN LAYER SCREEN (06/06/2014 12:00 AM CDT) PAP NIL COPATH Copath Report Patient Name: BRITNI AVILA MR#: [id number] Specimen #: [id number] Collected: 06/06/2014 Received: 06/09/2014 Reported: 06/11/2014 13:53 [...] Edson Coyle M.D. Processed and screened at [facility], [facility] CLINICAL HISTORY: LMP: 07/08/03 Post Menopausal, Previous normal pap Date of Last Pap: 01/12/11, Papanicolaou Test Limitations: ??Cervical cytology is a screening test with limited sensitivity; regular screening is critical for cancer prevention; Pap tests are primarily effective for the diagnosis/preventi on of squamous cell carcinoma, not adenocarcinomas or other cancers. TESTING LAB LOCATION: [address] ??[address] COLLECTION SITE: Client: ??[facility] Location: OXIM (S) COPATH Cytologic material (specimen) 06/06/2014 06/09/2014 10:13 AM CDT Nelson Topete MD LAB - OPTIME CLINICAL SPEC IMEN Final Result Performing Organization Address [facility] Co de Phone Number COPATH * (ABNORMAL) Lipid panel reflex to direct LDL (05/30/2011 9:48 AM CDT) Cholesterol 208(H) 0 - 200 mg/dL [facility] Comment: LDL Cholesterol is the primary guide to therapy. The NCEP recommends further evaluation of: patients with cholesterol greater than 200 mg/dL if additional risk factors are present, cholesterol greater than 240 mg/dL, triglycerides greater than 150 mg/dL, or HDL less than 40 mg/dL. Triglycerides 195(H) 0 - 150 mg/dL [facility] HDL Cholesterol 47(L) 50 - 110 mg/dL [facility] LDL Cholesterol Calculated 122 0 - 129 mg/dL [facility] Comment: LDL Cholesterol is the primary guide to therapy: LDL-cholesterol goal in high risk patients is <100 mg/dL and in very high risk patients is <70 mg/dL. VLDL-Cholesterol 39(H) 0 - 30 mg/dL [facility] Cholesterol/HDL Ratio 4.4 0.0 - 5.0 [facility] Blood specimen (specimen) 05/30/2011 9:48 AM CDT 05/30/2011 9:53 AM CDT Nelson Topete MD LAB - BLOOD ORDERABLES Fin al Result Performing Organization Address [facility] Co de Phone Number [facility] [address] [phone] * Dexa hip/pelvis/spine* (01/12/2011) Anatomical Region Laterality Modality Dexa Other Impressions 01/12/2011 BONE DENSITOMETRY [address] [address] 01/12/2011 Patient: ??Britni Avila Chart: [id number] : ??1955 Age: ??55 year old Sex: ??female Referring provider: ??CINTHYA TOPETE Procedure: ??Bone density scanning was performed using DEXA technology performed on a [employer] scanner. ??Reporting is completed in the form of a T-score. ?? The T-score represents the standard deviation from peak bone mass based on a young healthy adult. Senior Mobile Developer performing scan: ??Nuria Cruz Reference T-Scores: ? [...] to bone densitometry performed on the same [employer] machine on 07/14. ??In the interim, there is the suggestion of a possible trend towards worsening of the lumbar spine, and no significant change of the femoral neck. Impression: Osteopenia (low bone mass) Suggest verification of adequate calcium and vitamin D intake. Dexa scan read and electronically signed by Tenzin Mcgrath M.D. Electronically filed by Zack Altamirano ??02/02/2011 ??3:05 PM Nelson Topete MD [facility] DEXA ORDERABLES Final Result from Last 3 Months or Most Recently Relevant to Health Maintenance Insurance [employer] MEDICARE Advance Directives For more information, please contact: [phone] * Full Code (Latest Code Status on File) Date Activated Date Inactivated Comments 10/25/2013 6:13 PM 10/26/2013 12:50 PM Care Teams Wall Man Relationship Specialty Start Date End Date Nelson Topete MD [address] [address] PCP - General 06/18/04
--- OUTSIDE RECORDS SUMMARY | 2023-12-04 11:09 | XMS_ITS | Encounter Summary ---
Author Organization [place] Address [address] [facility] [place] [address] Care Team Providers Care Micro Computer Data Processor Name Role Phone Nelson Chan MD Primary Care Provider + [phone] Nelson Chan MD Unavailable [phone] Sage Kincaid MD Unavailable [phone] Chris Mcdaniel PA-C Unavailable [phone] Chris Mcdaniel PA-C Unavailable [phone] Nelson Chan MD Unavailable [phone] Reason for Visit * Reason Onset Date Comments Appointment 07/30/2019 Please switch ap poitment to phone visit Encounter Details Date Type Department Care Team (Late st Contact Info) Description 07/30/2019 Telephone [facility] [place] [address] [address] Chris Mcdaniel PA-C [address] [address] Appointment (Please switch appoitment to [...] PM CDT Legal Sex Female 3:21 AM PARALEGAL SPECIALIST Gender Identity Female 05/29/2018 3:24 PM CDT [...] to reach patient: Home number on file [phone] (home) Best Time: any Can we leave a detailed message on this number? YES Travel screening: Not Applicable documented in this encounter Plan of Treatment Not on file documented as of this encounter Visit Diagnoses Not on filedocumented in this encounter Care Teams Micro Computer Data Processor Relationship Specialty Start Date End Date Nelson Chan MD [address] [address] PCP - General 06/18/04 Nelson Chan MD [address] [place] [address] Assigned PCP 08/25/19 01/21/22 [place] [address] [place] [address] Assigned Sleep Provider 11/29/1912/20 Chris Mcdaniel PA-C [address] [address] Assigned Sleep Provider 04/22/20 Chris Mcdaniel PA-C [address] [address] Assigned Neuroscience Provider 04/22/20 02/11/22 Nelson Chan MD [address] [place] [address] Assigned PCP 04/02/22 10/07/22 documented as of this encounter
--- OUTSIDE RECORDS SUMMARY | 2023-12-04 11:09 | XMS_ITS | Encounter Summary ---
Author Organization [place] Address [address] [facility] [place] [address] Care Team Providers Care Work Over Rig Operator Name Role Phone Nelson Chan MD Primary Care Provider + [phone] Nelson Chan MD Unavailable [phone] Nelson Chan MD Unavailable [phone] Nelson Chan MD Unavailable [phone] Sage Kincaid MD Unavailable [phone] Chris Mcdaniel PA-C Unavailable [phone] Chris Mcdaniel PA-C Unavailable [phone] Nelson Chan MD Unavailable [phone] Reason for Visit * Reason Onset Date Comments other 03/27/2018 Ed with [employer] / dme supplier for bipap machine said their is an error in the perscription; please call back to advise at [phone] Encounter Details Date Type Department Care Team (Late st Contact Info) Description 03/27/2018 Telephone [facility] [address] [place] [address] [place] [address] [place] [address] other (Ed with [employer] / dme supplier for bipap machine said their is an error in the perscription; please call back to advise at [phone]) Social History Tobacco Use Types Packs/Day Years [...] PM CDT Legal Sex Female 3:21 AM 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 Not Applicable BRIM AND CROWN LAMINATING OPERATOR documented in this encounter Plan of Treatment Not on file documented as of this encounter Visit Diagnoses Not on filedocumented in this encounter Care Teams Work Over Rig Operator Relationship Specialty Start Date End Date Nelson Chan MD [address] [place] [address] PCP - General 06/18/04 Nelson Chan MD [address] [place] [address] PCP - Assigned PCP 02/25/13 04/10/18 Nelson Chan MD [address] [place] [address] Assigned PCP 02/25/13 06/30/18 Nelson Chan MD [address] [place] [address] Assigned PCP 08/25/19 01/21/22 [place] [address] [place] [address] Assigned Sleep Provider 11/29/1912/20 Chris Mcdaniel PA-C [address] [facility] [address] [place] [address] Assigned Sleep Provider 04/22/20 Chris Mcdaniel PA-C [address] [facility] [address] [place] [address] Assigned Neuroscience Provider 04/22/20 02/11/22 Nelson Chan MD [address] [place] [address] Assigned PCP 04/02/22 10/07/22 documented as of this encounter
--- OUTSIDE RECORDS SUMMARY | 2023-12-04 11:10 | XMS_ITS | Encounter Summary ---
Author Organization [place] Address [address] [facility] [place] [address] Care Team Providers Care Poultry Sexer Name Role Phone Nelson Chan MD Primary Care Provider + [phone] Nelson Chan MD Unavailable [phone] Nelson Chan MD Unavailable [phone] Nelson Chan MD Unavailable [phone] Sage Kincaid MD Unavailable [phone] Chris Mcdaniel PA-C Unavailable [phone] Chris Mcdaniel PA-C Unavailable [phone] Nelson Chan MD Unavailable [phone] Encounter Details Date Type Department Care Team (Late st Contact Info) Description 01/25/2011 [facility] [address] [address] Nelson Chan MD [address] [address] Social History Tobacco Use Types Packs/Day Years Used Date Smoking Tobacco: Every Day Cigarettes 1 30 Alcohol Use Standard Drinks/Week Comments No 0 (1 standard drink = 0.6 oz pur e alcohol) Comments No Sex and Gender Information Value Date Recorded Sex Assigned at Female 05/29/2018 3:24 PM CDT Legal Sex Female 3:21 AM HEALTH AND SAFETY INSPECTOR Gender Identity Female 05/29/2018 3:24 PM CDT Sexual Orientation Straight 05/29/2018 3: 25 PM CDT documented as of this encounter Plan of Treatment Not on file documented as of this encounter Visit Diagnoses Not on filedocumented in this encounter Care Teams Poultry Sexer Relationship Specialty Start Date End Date Nelson Chan MD [address] [address] PCP - General 06/18/04 Nelson Chan MD [address] [address] PCP - Assigned PCP 02/25/13 04/10/18 Nelson Chan MD [address] [place] [address] Assigned PCP 02/25/13 06/30/18 Nelson Chan MD [address] [place] [address] Assigned PCP 08/25/19 01/21/22 [place] [address] [place] [address] Assigned Sleep Provider 11/29/1912/20 Chris Mcdaniel PA-C [address] [facility] [place] [address] Assigned Sleep Provider 04/22/20 Chris Mcdaniel PA-C [address] [facility] [address] [place] [address] Assigned Neuroscience Provider 04/22/20 02/11/22 Nelson Chan MD [address] [address] Assigned PCP 04/02/22 10/07/22 documented as of this encounter
--- OUTSIDE RECORDS SUMMARY | 2023-12-04 11:10 | XMS_ITS | Clinical Summary ---
Author Organization [facility] Address [place], [place] [address] Care Team Providers Care Director Life Insurance Name Role Phone Thea Huggins PA-C Primary Care Provider [phone] Allergies No known active allergies Medications Medication [...] (obstructive sleep apnea) 06/01/2011 Tobacco abuse 01/21/2002 Family History Medical History Relation Name Comments [...] Comments Blood Pressure 128/97 04/07/2023 11:00 AM ORTHOPEDIC PHYSICIAN ASSISTANT Pulse 72 04/07/2023 11:00 AM ORTHOPEDIC PHYSICIAN ASSISTANT Temperature 37 ??C (98.6 ??F) 04/07/2023 10: 00 AM ORTHOPEDIC PHYSICIAN ASSISTANT Respiratory Rate 20 04/07/2023 10:0 0 AM ORTHOPEDIC PHYSICIAN ASSISTANT Oxygen Saturation 96% 04/07/2023 11: 00 AM ORTHOPEDIC PHYSICIAN ASSISTANT Inhaled Oxygen Concentration - - Weight 156.2 kg (344 lb 4.8 oz) 024 10:00 AM ORTHOPEDIC PHYSICIAN ASSISTANT Height 162.6 cm (5' 4) 04/07/2023 10:0 0 AM ORTHOPEDIC PHYSICIAN ASSISTANT Body Mass Index 59.1 04/07/2023 10:00 AM ORTHOPEDIC PHYSICIAN ASSISTANT Plan of Treatment Health Maintenance Due Date [...] PCV) 021 COVID-19 vaccine series ( - 2023- season) 4 Influenza for age 65+ 10/08/2023 Advance Directives * Full Code (Latest Code Status on File) Date Activated Date Inactivated Comments 01/19/2022 4:10 PM 01/22/2022 3:11 PM Question Answer Comments Code Status Discussion: Reviewed Preferences Care Teams Director Life Insurance Relationship Specialty Start Date End Date Thea Huggins PA-C [address] [place] [address] PCP - General Emergency Medicine 01/20/22
--- OUTSIDE RECORDS SUMMARY | 2023-12-04 11:10 | XMS_ITS | Encounter Summary ---
Author Organization [place] Address [address] [facility] [place] [address] Care Team Providers Care Fire Medic Name Role Phone Nelson Chan MD Primary Care Provider + [phone] Nelson Chan MD Unavailable [phone] Nelson Chan MD Unavailable [phone] Nelson Chan MD Unavailable [phone] Sage Kincaid MD Unavailable [phone] Chris Mcdaniel PA-C Unavailable [phone] Chris Mcdaniel PA-C Unavailable [phone] Nelson Chan MD Unavailable [phone] Encounter Details Date Type Department Care Team (Late st Contact Info) Description 01/05/[address] [address] [place] Social History Tobacco Use Types Packs/Day Years Used Date Smoking Tobacco: Every Day Cigarettes 1 30 Alcohol Use Standard Drinks/Week Comments No 0 (1 standard drink = 0.6 oz pur e alcohol) Comments No Sex and Gender Information Value Date Recorded Sex Assigned at Female 05/29/2018 3:24 PM CDT Legal Sex Female 3:21 AM TAPE EDITOR Gender Identity Female 05/29/2018 3:24 PM CDT Sexual Orientation Straight 05/29/2018 3: 25 PM CDT documented as of this encounter Plan of Treatment Not on file documented as of this encounter Visit Diagnoses Not on filedocumented in this encounter Care Teams Fire Medic Relationship Specialty Start Date End Date Nelson Chan MD [address] [place] [address] PCP - General 06/18/04 Nelson Chan MD [address] [place] [address] PCP - Assigned PCP 02/25/13 04/10/18 Nelson Chan MD [address] [place] [address] Assigned PCP 02/25/13 06/30/18 Nelson Chan MD [address] [place] [address] Assigned PCP 08/25/19 01/21/22 [place] [address] [address] Assigned Sleep Provider 11/29/1912/20 Chris Mcdaniel PA-C [address] [facility] [place] [id number] Assigned Sleep Provider 04/22/20 Chris Mcdaniel PA-C [address] [facility] [address] [place] [id number] Assigned Neuroscience Provider 04/22/20 02/11/22 Nelson Chan MD [address] [place] [id number] Assigned PCP 04/02/22 10/07/22 documented as of this encounter
--- OUTSIDE RECORDS SUMMARY | 2023-12-04 11:10 | XMS_ITS ---
Author Organization Unknown Patient Care team information Name Category Status Period Participants - - Proposed period not known -
--- OUTSIDE RECORDS SUMMARY | 2023-12-04 11:10 | XMS_ITS | Encounter Summary ---
Author Organization [place] Address [address] [place] [address] Care Team Providers Care Material Preparation Worker Name Role Phone Nelson Chan MD Primary Care Provider + [phone] Muna Cade MD Primary Care Provider +[phone] Nelson Chan MD Unavailable +[phone] Nelson Chan MD Unavailable +[phone] Nelson Chan MD Unavailable +[phone] Sage Kincaid MD Unavailable +[phone] Chris Mcdaniel PA-C Unavailable +[phone] Chris Mcdaniel PA-C Unavailable +[phone] Nelson Chan MD Unavailable + [phone] Encounter Details Date Type Department Care Team (Late st Contact Info) Description 01/04/[address] [address] Muna Cade MD NO INFO FOUND [place] [address] ER ENC (Primary Dx) Social History Tobacco [...] CDT Legal Sex Female 3:21 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 HISTORY OF PRESENT ILLNESS: Britni varela is a 46-year-old female who had relatively sudden onset, but gradually worsening mid epigastric abdominal/chest pain with radiation into her back. She described it as burning and stabbing in natur e. It came on about a half hour ago. It was initially unresponsive to antacids that she took at [facility] and she came in for evaluation. [...] rhythm at 78 beats per minute. Normal AL and QT intervals. There is no ST [...] reflux disease. Mauro SOLIS MD MT: Document: [id number] [place], [place] Name: BRITNI AVILA EMERGENCY ROOM ENCOUNTER Page 3 of 2 LC N: ER DSC: 01/04/2002 [place], [place] Name: BRITNI AVILA MR#: : Admit Date: -34 1955 01/04/2002 Doctor: Mauro SOLIS MD EMERGENCY R OOM ENCOUNTER Page 1 of 2 Electronically filed by Brittany Prajapati 01/09/2002 2:46 PM documented in this encounter Plan of Treatment Not on file documented as of this encounter Visit Diagnoses Diagnosis ER ENC- Primary documented in this encounter Care Teams Material Preparation Worker Relationship Specialty Start Date End Date Nelson Chan MD [address] [place] [address] PCP - General 06/18/04 Muna Cade MD [place] [address] PCP - General 01/07/02 06/17/04 Nelson Chan MD [address] [place] [address] PCP - Assigned PCP 02/25/13 04/10/18 Nelson Chan MD [address] [place] [address] Assigned PCP 02/25/13 06/30/18 Nelson Chan MD [address] [place] [address] Assigned PCP 08/25/19 01/21/22 [place] [address] [address] Assigned Sleep Provider 11/29/1912/20 Chris Mcdaniel PA-C [address] [facility] [address] [address] [address] Assigned Sleep Provider 04/22/20 Chris Mcdaniel PA-C [address] [facility] [address] [place] [address] Assigned Neuroscience Provider 04/22/20 02/11/22 Nelson Chan MD [address] [place] [address] Assigned PCP 04/02/22 10/07/22 documented as of this encounter
--- OUTSIDE RECORDS SUMMARY | 2023-12-04 11:10 | XMS_ITS | Encounter Summary ---
Author Organization [place] Address [address] [facility] [address] Care Team Providers Care Manager Programs Name Role Phone Nelson Chan MD Primary Care Provider + [phone] Nelson Chan MD Unavailable + [phone] Nelson Chan MD Unavailable +[phone] Nelson Chan MD Unavailable +[phone] Sage Kincaid MD Unavailable +[phone] Chris Mcdaniel PA-C Unavailable +[phone] Chris Mcdaniel PA-C Unavailable +[phone] Nelson Chan MD Unavailable + [phone] Encounter Details Date Type Department Care Team (Late st Contact Info) Description 06/28/2010 [facility] [address] [address] Nelson Chan MD [address] [address] Social History Tobacco Use Types Packs/Day Years Used Date Smoking Tobacco: Every Day Cigarettes 1 30 Alcohol Use Standard Drinks/Week Comments No 0 (1 standard drink = 0.6 oz pur e alcohol) Comments No Sex and Gender Information Value Date Recorded Sex Assigned at Female 05/29/2018 3:24 PM CDT Legal Sex Female 3:21 AM HEALTH INSURANCE ADJUSTER Gender Identity Female 05/29/2018 3:24 PM CDT Sexual Orientation Straight 05/29/2018 3: 25 PM CDT documented as of this encounter Plan of Treatment Not on file documented as of this encounter Visit Diagnoses Not on filedocumented in this encounter Care Teams Manager Programs Relationship Specialty Start Date End Date Nelson Chan MD [address] [address] PCP - General 06/18/04 Nelson Chan MD [address] [address] PCP - Assigned PCP 02/25/13 04/10/18 Nelson Chan MD [address] [place] [address] Assigned PCP 02/25/13 06/30/18 Nelson Chan MD [address] [place] [address] Assigned PCP 08/25/19 01/21/22 [place] [address] [place] [address] Assigned Sleep Provider 11/29/1912/20 Chris Mcdaniel PA-C [address] [facility] [place] [address] Assigned Sleep Provider 04/22/20 Chris Mcdaniel PA-C [address] [facility] 103 [place] [address] Assigned Neuroscience Provider 04/22/20 02/11/22 Nelson Chan MD [address] [address] Assigned PCP 04/02/22 10/07/22 documented as of this encounter
--- OUTSIDE RECORDS SUMMARY | 2023-12-04 11:10 | XMS_ITS | Encounter Summary ---
Author Organization [place] Address [address] [facility] [place] [address] Care Team Providers Care Digital Marketing Coordinator Name Role Phone Nelson Chan MD Primary Care Provider + [phone] Nelson Chan MD Unavailable + [phone] Nelson Chan MD Unavailable + [phone] Nelson Chan MD Unavailable +[phone] Sage Kincaid MD Unavailable +[phone] Chris Mcdaniel PA-C Unavailable +[phone] Chris Mcdaniel PA-C Unavailable [phone] Nelson Chan MD Unavailable +[phone] Encounter Details Date Type Department Care Team (Late st Contact Info) Description 10/23/2009 [facility] Advice Initial Department [facility] Social History Tobacco Use Types Packs/Day Years Used Date Smoking Tobacco: Every Day Cigarettes 1 30 Alcohol Use Standard Drinks/Week Comments No 0 (1 standard drink = 0.6 oz pur e alcohol) Comments No Sex and Gender Information Value Date Recorded Sex Assigned at Female 05/29/2018 3:24 PM CDT Legal Sex Female 3:21 AM DONKEY RIDE OPERATOR Gender Identity Female 05/29/2018 3:24 PM CDT Sexual Orientation Straight 05/29/2018 3: 25 PM CDT documented as of this encounter Plan of Treatment Not on file documented as of this encounter Visit Diagnoses Not on filedocumented in this encounter Care Teams Digital Marketing Coordinator Relationship Specialty Start Date End Date Nelson Chan MD [address] [place] [address] PCP - General 06/18/04 Nelson Chan MD [address] [place] [address] PCP - Assigned PCP 02/25/13 04/10/18 Nelson Chan MD [address] [place] [address] Assigned PCP 02/25/13 06/30/18 Nelson Chan MD [address] [place] [address] Assigned PCP 08/25/19 01/21/22 [place] [address] [place] [address] Assigned Sleep Provider 11/29/1912/20 Chris Mcdaniel PA-C [address] [place] [address] [place] [address] Assigned Sleep Provider 04/22/20 Chris Mcdaniel PA-C [address] [facility] [address] [place] [address] Assigned Neuroscience Provider 04/22/20 02/11/22 Nelson Chan MD [address] [address] Assigned PCP 04/02/22 10/07/22 documented as of this encounter
--- OUTSIDE RECORDS SUMMARY | 2023-12-04 11:10 | XMS_ITS | Encounter Summary ---
Author Organization [place] Address [address] [facility] [place] [address] Care Team Providers Care Tank Insulator Rubber Name Role Phone Nelson Chan MD Primary Care Provider + [phone] Nelson Chan MD Unavailable + [phone] Nelson Chan MD Unavailable + [phone] Nelson Chan MD Unavailable +[phone] Sage Kincaid MD Unavailable +[phone] Chris Mcdaniel PA-C Unavailable +[phone] Chris Mcdaniel PA-C Unavailable [phone] Nelson Chan MD Unavailable +[phone] Encounter Details Date Type Department Care Team (Late st Contact Info) Description 06/17/2011 [facility] [address] [place] [address] Teri Vasquez MD [address] [place] [id number] Social History Tobacco Use Types Packs/Day Years Used Date Smoking Tobacco: Every Day Cigarettes 1 40 Smokeless Tobacco: Never Alcohol Use Standard Drinks/Week Comments No 0 (1 standard drink = 0.6 oz pur e alcohol) Comments No Sex and Gender Information Value Date Recorded Sex Assigned at Female 05/29/2018 3:24 PM CDT Legal Sex Female 3:21 AM SWITCHING OPERATOR Gender Identity Female 05/29/2018 3:24 PM CDT Sexual Orientation Straight 05/29/2018 3: 25 PM CDT documented as of this encounter Plan of Treatment Not on file documented as of this encounter Visit Diagnoses Not on filedocumented in this encounter Care Teams Tank Insulator Rubber Relationship Specialty Start Date End Date Nelson Chan MD [address] [address] PCP - General 06/18/04 Nelson Chan MD [address] [address] PCP - Assigned PCP 02/25/13 04/10/18 Nelson Chan MD [address] [address] Assigned PCP 02/25/13 06/30/18 Nelson Chan MD [address] [address] Assigned PCP 08/25/19 01/21/22 [place] [address] [place] [address] Assigned Sleep Provider 11/29/1912/20 Chris Mcdaniel PA-C [address] [place] [address] [place] [address] Assigned Sleep Provider 04/22/20 Chris Mcdaniel PA-C [address] [facility] 103 [place] [address] Assigned Neuroscience Provider 04/22/20 02/11/22 Nelsno Chan MD [address] [address] Assigned PCP 04/02/22 10/07/22 documented as of this encounter
--- OUTSIDE RECORDS SUMMARY | 2023-12-04 11:10 | XMS_ITS | Encounter Summary ---
Author Organization [place] Address [address] [facility] [place] [address] Care Team Providers Care Complex Human Resources Manager Name Role Phone Nelson Chan MD Primary Care Provider + [phone] Nelson Chan MD Unavailable + [phone] Nelson Chan MD Unavailable +[phone] Nelson Chan MD Unavailable +[phone] Sage Kincaid MD Unavailable +[phone] Chris Mcdaniel PA-C Unavailable +[phone] Chris Mcdaniel PA-C Unavailable [phone] Nelson Chan MD Unavailable + [phone] Encounter Details Date Type Department Care Team (Late st Contact Info) Description 04/10/2009 [facility] [address] [address] Nelson Chan MD [address] [address] Social History Tobacco Use Types Packs/Day Years Used Date Smoking Tobacco: Every Day Cigarettes 1 30 Alcohol Use Standard Drinks/Week Comments No 0 (1 standard drink = 0.6 oz pur e alcohol) Comments No Sex and Gender Information Value Date Recorded Sex Assigned at Female 05/29/2018 3:24 PM CDT Legal Sex Female 3:21 AM PIPE 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 Gender Identity Female 05/29/2018 3:24 PM CDT Sexual Orientation Straight 05/29/2018 3: 25 PM CDT documented as of this encounter Plan of Treatment Not on file documented as of this encounter Visit Diagnoses Not on filedocumented in this encounter Care Teams Complex Human Resources Manager Relationship Specialty Start Date End Date Nelson Chan MD [address] [address] PCP - General 06/18/04 Nelson Chan MD [address] [address] PCP - Assigned PCP 02/25/13 04/10/18 Nelson Chan MD [address] [place] [address] Assigned PCP 02/25/13 06/30/18 Nelson Chan MD [address] [place] [address] Assigned PCP 08/25/19 01/21/22 [place] [address] [place] [address] Assigned Sleep Provider 11/29/1912/20 Chris Mcdaniel PA-C [address] [facility] [place] [address] Assigned Sleep Provider 04/22/20 Chris Mcdaniel PA-C [address] [facility] 103 [place] [address] Assigned Neuroscience Provider 04/22/20 02/11/22 Nelson Chan MD [address] [address] Assigned PCP 04/02/22 10/07/22 documented as of this encounter
--- OUTSIDE RECORDS SUMMARY | 2023-12-04 11:10 | XMS_ITS | Encounter Summary ---
Author Organization [place] Address [address] [facility] [place] [address] Care Team Providers Care Carry All Driver Name Role Phone Nelson Chan MD Primary Care Provider + [phone] Nelson Chan MD Unavailable + [phone] Nelson Chan MD Unavailable + [phone] Nelson Chan MD Unavailable +[phone] Sage Kincaid MD Unavailable +[phone] Chris Mcdaniel PA-C Unavailable +[phone] Chris Mcdaniel PA-C Unavailable [phone] Nelson Chan MD Unavailable + [phone] Encounter Details Date Type Department Care Team (Late st Contact Info) Description 05/09/2011 [facility] [address] [address] Nelson Chan MD [address] [address] Social History Tobacco Use Types Packs/Day Years Used Date Smoking Tobacco: Every Day Cigarettes 1 40 Alcohol Use Standard Drinks/Week Comments No 0 (1 standard drink = 0.6 oz pur e alcohol) Comments No Sex and Gender Information Value Date Recorded Sex Assigned at Female 05/29/2018 3:24 PM CDT Legal Sex Female 3:21 AM CUSTOMER 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 Gender Identity Female 05/29/2018 3:24 PM CDT Sexual Orientation Straight 05/29/2018 3: 25 PM CDT documented as of this encounter Plan of Treatment Not on file documented as of this encounter Visit Diagnoses Not on filedocumented in this encounter Care Teams Carry All Driver Relationship Specialty Start Date End Date Nelson Chan MD [address] [address] PCP - General 06/18/04 Nelson Chan MD [address] [address] PCP - Assigned PCP 02/25/13 04/10/18 Nelson Chan MD [address] [place] [address] Assigned PCP 02/25/13 06/30/18 Nelson Chan MD [address] [place] [address] Assigned PCP 08/25/19 01/21/22 [place] [address] [place] [address] Assigned Sleep Provider 11/29/1912/20 Chris Mcdaniel PA-C [address] [facility] [place] [address] Assigned Sleep Provider 04/22/20 Chris Mcdaniel PA-C [address] [facility] 103 [place] [address] Assigned Neuroscience Provider 04/22/20 02/11/22 Nelson Chan MD [address] [address] Assigned PCP 04/02/22 10/07/22 documented as of this encounter
--- OUTSIDE RECORDS SUMMARY | 2023-12-04 11:10 | XMS_ITS | Encounter Summary ---
Author Organization [place] Address [address] [facility] [place] [address] Care Team Providers Care Trim Attacher Name Role Phone Nelson Chan MD Primary Care Provider + [phone] Nelson Chan MD Unavailable +[phone] Nelson Chan MD Unavailable +[phone] Nelson Chan MD Unavailable +[phone] Sage Kincaid MD Unavailable +[phone] Chris Mcdaniel PA-C Unavailable +[phone] Chris Mcdaniel PA-C Unavailable +[phone] Nelson Chan MD Unavailable +[phone] Reason for Visit * Reason Onset Date Comments Smoking Cessation 05/12/2008 Encounter Details Date Type Department Care Team (Late st Contact Info) Description 05/12/2008 [facility] Advice [facility] [address] [address] Nelson Chan MD [address] [id number] Smoking Cessation Social History Tobacco Use Types Packs/Day Years Used Date Smoking Tobacco: Every Day Cigarettes 1 30 Alcohol Use Standard Drinks/Week Comments No 0 (1 standard drink = 0.6 oz pur e alcohol) Comments No Sex and Gender Information Value Date Recorded Sex Assigned at Female 05/29/2018 3:24 PM CDT Legal Sex Female 3:21 AM PIE FILLER Gender Identity Female 05/29/2018 3:24 PM CDT Sexual Orientation Straight 05/29/2018 3: 25 PM CDT documented as of this encounter Plan of Treatment Not on file documented as of this encounter Visit Diagnoses Diagnosis Tobacco use disorder- Primary documented in this encounter Care Teams Trim Attacher Relationship Specialty Start Date End Date Nelson Chan MD [address] [place] [address] PCP - General 06/18/04 Nelson Chan MD [address] [place] [address] PCP - Assigned PCP 02/25/13 04/10/18 Nelson Chan MD [address] [place] [address] Assigned PCP 02/25/13 06/30/18 Nelson Chan MD [address] [place] [address] Assigned PCP 08/25/19 01/21/22 [place] [address] [address] Assigned Sleep Provider 11/29/1912/20 Chris Mcdaniel PA-C [address] [address] Assigned Sleep Provider 04/22/20 Chris Mcdaniel PA-C [address] [address] Assigned Neuroscience Provider 04/22/20 02/11/22 Nelson Chan MD [address] [place] [address] Assigned PCP 04/02/22 10/07/22 documented as of this encounter
--- OUTSIDE RECORDS SUMMARY | 2023-12-04 11:10 | XMS_ITS | Encounter Summary ---
Author Organization [place] Address [address] [facility]. [address] Care Team Providers Care Internal Controls Consultant Name Role Phone Nelson Chan MD Primary Care Provider + [phone] Nelson Chan MD Unavailable + [phone] Nelson Chan MD Unavailable + [phone] Nelson Chna MD Unavailable +[phone] Sage Kincaid MD Unavailable +[phone] Chris Mcdaniel PA-C Unavailable +[phone] Chris Mcdaniel PA-C Unavailable [phone] Nelson Chan MD Unavailable + [phone] Encounter Details Date Type Department Care Team (Late st Contact Info) Description 04/11/2005 [facility] [address] [address] Nelson Chan MD [address] [address] Social History Tobacco Use Types Packs/Day Years Used Date Smoking Tobacco: Every Day Cigarettes 1 30 Alcohol Use Standard Drinks/Week Comments No 0 (1 standard drink = 0.6 oz pur e alcohol) Comments No Sex and Gender Information Value Date Recorded Sex Assigned at Female 05/29/2018 3:24 PM CDT Legal Sex Female 3:21 AM REHAB ASSISTANT Gender Identity Female 05/29/2018 3:24 PM CDT Sexual Orientation Straight 05/29/2018 3: 25 PM CDT documented as of this encounter Plan of Treatment Not on file documented as of this encounter Visit Diagnoses Not on filedocumented in this encounter Care Teams Internal Controls Consultant Relationship Specialty Start Date End Date Nelson Chan MD [address] [address] PCP - General 06/18/04 Nelson Chan MD [address] [address] PCP - Assigned PCP 02/25/13 04/10/18 Nelson Chan MD [address] [place] [address] Assigned PCP 02/25/13 06/30/18 Nelson Chan MD [address] [place] [address] Assigned PCP 08/25/19 01/21/22 [place] [address] [place] [address] Assigned Sleep Provider 11/29/1912/20 Chris Mcdaniel PA-C [address] [facility] [place] [address] Assigned Sleep Provider 04/22/20 Chris Mcdaniel PA-C [address] [facility] 103 [place] [address] Assigned Neuroscience Provider 04/22/20 02/11/22 Nelson Chan MD [address] [address] Assigned PCP 04/02/22 10/07/22 documented as of this encounter
--- OUTSIDE RECORDS SUMMARY | 2023-12-04 11:10 | XMS_ITS | Encounter Summary ---
Author Organization [place] Address [address] [facility] [place] [address] Care Team Providers Care Baffle Mounter Name Role Phone Nelson Chan MD Primary Care Provider + [phone] Nelson Chan MD Unavailable + [phone] Nelson Chan MD Unavailable + [phone] Nelson Chan MD Unavailable +[phone] Sage Kincaid MD Unavailable +[phone] Chris Mcdaniel PA-C Unavailable +[phone] Chris Mcdaniel PA-C Unavailable [phone] Nelson Chan MD Unavailable + [phone] Encounter Details Date Type Department Care Team (Late st Contact Info) Description 04/09/2010 [facility] [address] [address] Nelson Chan MD [address] [address] Social History Tobacco Use Types Packs/Day Years Used Date Smoking Tobacco: Every Day Cigarettes 1 30 Alcohol Use Standard Drinks/Week Comments No 0 (1 standard drink = 0.6 oz pur e alcohol) Comments No Sex and Gender Information Value Date Recorded Sex Assigned at Female 05/29/2018 3:24 PM CDT Legal Sex Female 3:21 AM DIRECTOR OF ONLINE EDUCATION Gender Identity Female 05/29/2018 3:24 PM CDT Sexual Orientation Straight 05/29/2018 3: 25 PM CDT documented as of this encounter Plan of Treatment Not on file documented as of this encounter Visit Diagnoses Not on filedocumented in this encounter Care Teams Baffle Mounter Relationship Specialty Start Date End Date Nelson Chan MD [address] [address] PCP - General 06/18/04 Nelson Chan MD [address] [address] PCP - Assigned PCP 02/25/13 04/10/18 Nelson Chan MD [address] [place] [address] Assigned PCP 02/25/13 06/30/18 Nelson Chan MD [address] [place] [address] Assigned PCP 08/25/19 01/21/22 [place] [address] [place] [address] Assigned Sleep Provider 11/29/1912/20 Chris Mcdaniel PA-C [address] [facility] [place] [address] Assigned Sleep Provider 04/22/20 Chris Mcdaniel PA-C [address] [facility] [address] [place] [address] Assigned Neuroscience Provider 04/22/20 02/11/22 Nelson Chan MD [address] [address] Assigned PCP 04/02/22 10/07/22 documented as of this encounter
--- OUTSIDE RECORDS SUMMARY | 2023-12-04 11:10 | XMS_ITS | Encounter Summary ---
Author Organization [place] Address [address] [facility] [place] [address] Care Team Providers Care Manager Generation Name Role Phone Nelson Chan MD Primary Care Provider + [phone] Nelson Chan MD Unavailable + [phone] Nelson Chan MD Unavailable [phone] Nelson Chan MD Unavailable [phone] Sage Kincaid MD Unavailable [phone] Chris Mcdaniel PA-C Unavailable +[phone] Chris Mcdaniel PA-C Unavailable [phone] Nelson Chan MD Unavailable [phone] Encounter Details Date Type Department Care Team (Late st Contact Info) Description 10/17/2006 [facility] [address] [address] Nelson Chan MD [address] [address] Social History Tobacco Use Types Packs/Day Years Used Date Smoking Tobacco: Every Day Cigarettes 1 30 Alcohol Use Standard Drinks/Week Comments No 0 (1 standard drink = 0.6 oz pur e alcohol) Comments No Sex and Gender Information Value Date Recorded Sex Assigned at Female 05/29/2018 3:24 PM CDT Legal Sex Female 3:21 AM TOPSTITCHER LOCKSTITCH Gender Identity Female 05/29/2018 3:24 PM CDT Sexual Orientation Straight 05/29/2018 3: 25 PM CDT documented as of this encounter Plan of Treatment Not on file documented as of this encounter Visit Diagnoses Not on filedocumented in this encounter Care Teams Manager Generation Relationship Specialty Start Date End Date Nelson Chan MD [address] [address] PCP - General 06/18/04 Nelson Chan MD [address] [address] PCP - Assigned PCP 02/25/13 04/10/18 Nelson Chan MD [address] [place] [address] Assigned PCP 02/25/13 06/30/18 Nelson Chan MD [address] [place] [address] Assigned PCP 08/25/19 01/21/22 [place] [address] [place] [address] Assigned Sleep Provider 11/29/1912/20 Chris Mcdaniel PA-C [address] [facility] [place] [address] Assigned Sleep Provider 04/22/20 Chris Mcdaniel PA-C [address] [facility] [address] [place] [address] Assigned Neuroscience Provider 04/22/20 02/11/22 Nelson Chan MD [address] [address] Assigned PCP 04/02/22 10/07/22 documented as of this encounter
== END 2023-12-04 11:06 | disposition home or self-care (01) ==
PROVIDERS: PCP Physician Assistant Medical; Visit Provider Physician Assistant Medical
DX: Z00.00 Encounter for general adult medical examination without abnormal findings (principal); E78.5 Hyperlipidemia, unspecified; I10 Essential (primary) hypertension; E66.01 Morbid (severe) obesity due to excess calories; D69.6 Thrombocytopenia, unspecified
CPT/HCPCS: 80053; 80061; 84443

== ENCOUNTER 2023-12-15 06:59 | Outpatient (CLI) | payer MEDICARE, SELFPAY ==
--- OUTSIDE RECORDS SUMMARY | 2023-12-15 07:01 | XMS_ITS | Encounter Summary ---
Author Organization [place] Address [address] [place] [address] Care Team Providers Care Sign Artist Name Role Phone Nelson Chan MD Primary Care Provider + [phone] Nelson Chan MD Unavailable [phone] Chris McdanielC Unavailable +[phone] Nelson Chan MD Unavailable [phone] Encounter Details Date Type Department Care Team (Late st Contact Info) Description 07/30/2020 [facility] [place] [facility] Advice [facility] [address] [place] [address] Chris Mcdaniel, PA-C [address] [address] Social History Tobacco Use Types [...] PM CDT Legal Sex Female 3:21 AM DEBEADER Gender Identity Female 05/29/2018 3:24 PM CDT Sexual Orientation Straight 05/29/2018 3: 25 PM CDT documented as of this encounter Plan of Treatment Not on file documented as of this encounter Visit Diagnoses Not on filedocumented in this encounter Care Teams Sign Artist Relationship Specialty Start Date End Date Nelson Chan MD [address] [place] [address] PCP - General 06/18/04 Nelson Chan MD [address] [place] [address] Assigned PCP 08/25/19 01/21/22 Chris Mcdaniel PA-C [address] [address] Assigned Neuroscience Provider 04/22/20 02/11/22 Nelson Chan MD [address] [place] [address] Assigned PCP 04/02/22 10/07/22 documented as of this encounter
--- OUTSIDE RECORDS SUMMARY | 2023-12-15 07:01 | XMS_ITS | Encounter Summary ---
Author Organization [place] Address [facility] [place] [address] Care Team Providers Care Glass Blower Helper Name Role Phone Nelson Chan MD Primary Care Provider + [phone] Nelson Chan MD Unavailable [phone] Sage Kincaid MD Unavailable [phone] Chris Mcdaniel PA-C Unavailable +[phone] Chris Mcdaniel PA-C Unavailable [phone] Neslon Chan MD Unavailable [phone] Reason for Visit * Reason Onset Date Comments Symptoms 01/14/2019 Encounter Details Date Type Department Care Team (Late st Contact Info) Description 01/14/2019 [facility] [address] [address] Nelson Chan MD [address] [address] Symptoms Social History Tobacco Use [...] PM CDT Legal Sex Female 3:21 AM SCORER HELPER Gender Identity Female 05/29/2018 3:24 PM CDT Sexual Orientation Straight 05/29/2018 3: 25 PM CDT documented as of this encounter Plan of Treatment Not on file documented as of this encounter Visit Diagnoses Not on filedocumented in this encounter Care Teams Glass Blower Helper Relationship Specialty Start Date End Date Nelson Chan MD [address] [place] [address] PCP - General 06/18/04 Nelson Chan MD [address] [place] [address] Assigned PCP 08/25/19 01/21/22 [place] [address] [address] [facility] [address] [place] [address] Assigned Sleep Provider 11/29/1912/20 Chris Mcdaniel PA-C [address] [place] [address] Assigned Sleep Provider 04/22/20 Chris Mcdaniel PA-C [address] [place] [address] Assigned Neuroscience Provider 04/22/20 02/11/22 Nelson Chan MD [address] [place] [address] Assigned PCP 04/02/22 10/07/22 documented as of this encounter
--- OUTSIDE RECORDS SUMMARY | 2023-12-15 07:01 | XMS_ITS | Encounter Summary ---
Author Organization [place] Address [address] [facility] [place] [address] Care Team Providers Care Pipelines Laborer Name Role Phone Nelson Chan MD Primary Care Provider + [phone] Nelson Chan MD Unavailable [phone] Sage Kincaid MD Unavailable [phone] Chris Mcdaniel PA-C Unavailable [phone] Chris Mcdaniel PA-C Unavailable [phone] Nelson Chan MD Unavailable [phone] Reason for Visit * Reason Onset Date Comments Patient Request 07/19/2019 Requet for trans erik of cpap prescription and sleep study Encounter Details Date Type Department Care Team (Late st Contact Info) Description 07/19/2019 Telephone [facility] [place] [address] [facility] [address] [place] [address] Dayne Blue PA [address] [place] [address] [address] [place] [address] Patient Request (Requet for transfer [...] PM CDT Legal Sex Female 3:21 AM ITINERANT TEACHER ASSISTANT Gender Identity Female 05/29/2018 3:24 PM [...] of her sleep study be sent to [facility]( ). She has most recently seen Dr. Kincaid on 05-31-18 Phone number to reach patient: Home number on file [phone] (home) Best Time: any Can we leave a detailed message on this number? YES Travel screening: Negative documented in this encounter Plan of Treatment Not on file documented as of this encounter Visit Diagnoses Not on filedocumented in this encounter Care Teams Pipelines Laborer Relationship Specialty Start Date End Date Nelson Cahn MD [address] [place] [address] PCP - General 06/18/04 Nelson Chan MD [address] [place] [address] Assigned PCP 08/25/19 01/21/22 [place] [address] [place] [address] Assigned Sleep Provider 11/29/1912/20 Chris Mcdaniel PA-C [address] [place] [address] [place] [address] Assigned Sleep Provider 04/22/20 Chris Mcdaniel PA-C [address] [place] [address] [place] [address] Assigned Neuroscience Provider 04/22/20 02/11/22 Nelson Chan MD [address] [place] [address] Assigned PCP 04/02/22 10/07/22 documented as of this encounter
--- OUTSIDE RECORDS SUMMARY | 2023-12-15 07:01 | XMS_ITS | Referral Summary ---
Author Organization [place] Address [facility] [address] Care Team Providers Care Yarn Dumper Name Role Phone Nelson Topete MD Primary Care Provider [phone] Allergies Active Allergy Reactions Criticality Noted Date [...] PM CDT Legal Sex Female 3:21 AM LIMO DRIVER Gender Identity Female 05/29/2018 3:24 PM CDT Sexual Orientation Straight 05/29/2018 3: 25 PM CDT Last Filed Vital Signs Vital Sign Reading Time Taken Comments Blood Pressure 170/100 01/09/2020 2:48 PM LIMO DRIVER Pulse 100 01/09/2020 2:48 PM LIMO DRIVER Temperature 36.6 ??C (97.9 ??F) 01/09/2020 2:48 PM CS T Respiratory Rate 18 01/09/2020 2:48 PM LIMO DRIVER Oxygen Saturation 97% 01/09/2020 2:48 PM LIMO DRIVER Inhaled Oxygen Concentration - - Weight 136.1 kg (300 lb) 08/06/2020 9:00 AM CDT Height 162.6 cm (5' 4) 08/06/2020 9:00 AM CDT Body Mass Index 51.49 08/06/2020 9:00 AM CDT Plan of Treatment Not on file Procedures Procedure Name Priority Date/Time Associated Diagnosis Comments MA SCREENING DIGITAL BILATERAL Routine 05/08/2021 10:22 PM CDT Visit for screening mammogram COLONOSCOPY Routine 01/08/2020 11:37 AM LIMO DRIVER BASIC METABOLIC PANEL STAT 02/02/2018 12:00 AM LIMO DRIVER PAP IMAGED THIN LAYER SCREEN Routine 06/06/2014 12:00 AM CDT Screening for malignant neoplasm of cervix Routine general medical examination at a [facility] care facility LIPID REFLEX TO DIRECT [...] Final Result * COLONOSCOPY (01/08/2020 11:37 AM LIMO DRIVER) COLONOSCOPY [facility] Patient Name: Britni Avila ?? [...] continuously. The ?Olympus Adult Colonoscope, Model # CF-EH489Y, ?[place]ora # [id number], SN # [id number] was introduced through ?the anus and advanced [...] Procedure Code(s): ? --- Professional --- ? 01034, Colonoscopy, flexible; with removal of tumor(s), polyp(s), or ? other lesion(s) by snare technique Diagnosis Code(s): ? --- Professional --- ? K63.5, Polyp of colon CPT copyright 2019 [employer]. All rights reserved. The codes documented in this report are preliminary and upon criminal justice faculty review may be revised to meet current compliance requirements. Electronically signed by Edmundo Mabry MD __ Edmundo Mabry MD 01/08/2020 1:20:03 PM I was physically present for the entire viewing portion of the exam. Edmundo Mabry MD Number of Addenda: 0 Note Initiated On: 01/08/2020 11:37 AM MRN: ?[id number] Procedure Date: ? 01/08/2020 11:37:27 AM Scope Withdrawal Time: 0 hours 7 minutes 17 seconds Total Procedure Duration: 0 hours 13 minutes 1 second Estimated Blood Loss: ? Scope In: 12:28:18 PM Scope Out: 12:41:19 PM RADIOLOGY RESULTS 01/08/2020 11:3 7 AM LIMO DRIVER us Edmundo Mabry MD PROCEDURES Final Result RADIOLOGY RESULTS * (ABNORMAL) Basic metabolic panel (02/02/2018 12:00 AM LIMO DRIVER) Sodium 142 133 - 144 mmol/L 02/02/2018 12:26 AM [facility] Potassium 3.6 3.4 - 5.3 mmol/L 02/02/2018 12:26 AM [facility] Chloride 109 94 - 109 mmol/L 02/02/2018 12:26 AM [facility] Carbon Dioxide 28 20 - 32 mmol/L 02/02/2018 12:26 AM [facility] Anion Gap 5 3 - 14 mmol/L 02/02/2018 12:26 AM [facility] Glucose 100(H) 70 - 99 mg/dL 02/02/2018 12:26 AM [facility] Urea Nitrogen 9 7 - 30 mg/dL 02/02/2018 12:26 AM [facility] Creatinine 0.59 0.52 - 1.04 mg/dL 02/02/2018 12:26 AM [facility] GFR Estimate >90 >60 mL/min/{1. 73_m2} 02/02/2018 12:26 AM [facility] Comment: Non GFR Calc Starting 01/23/2018, serum creatinine based estimated GFR (eGFR) will be calculated using the Chronic Kidney Disease Epidemiology Collaboration (CKD-EPI) equation. GFR Estimate If Black >90 >60 mL/min/{1. 73_m2} 02/02/2018 12:26 AM [facility] Comment: GFR Calc Starting 01/23/2018, serum creatinine based estimated GFR (eGFR) will be calculated using the Chronic Kidney Disease Epidemiology Collaboration (CKD-EPI) equation. Calcium 9.2 8.5 - 10.1 mg/dL 02/02/2018 12:26 AM [facility] Blood specimen (specimen) 02/02/2018 02/02/2018 12:01 AM LIMO DRIVER us Mirna KENDRICK LAB - BLOOD ORDERABLES Fi nal Result [facility] [place] [address], [facility] [phone] * PAP IMAGED THIN LAYER SCREEN (06/06/2014 12:00 AM CDT) PAP NIL COPATH Copath Report Patient Name: BRITNI AVILA MR#: [id number] Specimen #: [id number] Collected: 06/06/2014 Received: 06/09/2014 Reported: 06/11/2014 13:53 [...] Edson Coyle M.D. Processed and screened at [facility], [facility] CLINICAL HISTORY: LMP: 07/08/03 Post Menopausal, Previous normal pap Date of Last Pap: 01/12/11, Papanicolaou Test Limitations: ??Cervical cytology is a screening test with limited sensitivity; regular screening is critical for cancer prevention; Pap tests are primarily effective for the diagnosis/preventi on of squamous cell carcinoma, not adenocarcinomas or other cancers. TESTING LAB LOCATION: [address] ??[address] COLLECTION SITE: Client: ??[facility] Location: OXIM (S) COPATH Cytologic material (specimen) 06/06/2014 06/09/2014 10:13 AM CDT us Nelson Topete MD LAB - OPTIME CLINICAL SPEC IMEN Final Result COPATH * (ABNORMAL) Lipid panel reflex to direct LDL (05/30/2011 9:48 AM CDT) Cholesterol 208(H) 0 - 200 mg/dL [facility] Comment: LDL Cholesterol is the primary guide to therapy. The NCEP recommends further evaluation of: patients with cholesterol greater than 200 mg/dL if additional risk factors are present, cholesterol greater than 240 mg/dL, triglycerides greater than 150 mg/dL, or HDL less than 40 mg/dL. Triglycerides 195(H) 0 - 150 mg/dL [facility] HDL Cholesterol 47(L) 50 - 110 mg/dL [facility] LDL Cholesterol Calculated 122 0 - 129 mg/dL [facility] Comment: LDL Cholesterol is the primary guide to therapy: LDL-cholesterol goal in high risk patients is <100 mg/dL and in very high risk patients is <70 mg/dL. VLDL-Cholesterol 39(H) 0 - 30 mg/dL [facility] Cholesterol/HDL Ratio 4.4 0.0 - 5.0 [facility] Blood specimen (specimen) 05/30/2011 9:48 AM CDT 05/30/2011 9:53 AM CDT us Nelson Topete MD LAB - BLOOD ORDERABLES Fin al Result Performing Organization Address [facility]/State/ZIP Co de Phone Number [address] [address] * Dexa hip/pelvis/spine* (01/12/2011) Anatomical Region Laterality Modality Dexa Other Impressions 01/12/2011 BONE DENSITOM[address]RY [address] [address] 01/12/2011 Patient: ??Britni Avila Chart: [id number] : ??1955 Age: ??55 year old Sex: ??female Referring provider: ??CINTHYA TOPETE Procedure: ??Bone density scanning was performed using DEXA technology performed on a [employer] scanner. ??Reporting is completed in the form of a T-score. ?? The T-score represents the standard deviation from peak bone mass based on a young healthy adult. Gear Changer performing scan: ??Nuria Cruz Reference T-Scores: ? [...] to bone densitometry performed on the same [employer] machine on 07/14. ??In the interim, there [...] Advance Directives For more information, please contact: [phone] * Full Code (Latest Code Status on File) Date Activated Date Inactivated Comments 10/25/2013 6:13 PM 10/26/2013 12:50 PM Care Teams Yarn Dumper Relationship Specialty Start Date End Date Nelson Topete MD [address] [place] [address] PCP - General 06/18/04
--- OUTSIDE RECORDS SUMMARY | 2023-12-15 07:01 | XMS_ITS | Encounter Summary ---
Author Organization [place] Address [facility] [place] [address] Care Team Providers Care Corporate Traffic Manager Name Role Phone Nelson Chan MD Primary Care Provider + [phone] Nelson Chan MD Unavailable [phone] Chris Mcdaniel PA-C Unavailable +[phone] Nelson Chan MD Unavailable [phone] Reason for Visit * Reason Onset Date Comments Refill Request 03/15/2021 Encounter Details Date Type Department Care Team (Late st Contact Info) Description 03/15/2021 MyC Refill [facility] [address] [address] Nelson Chan MD [address] [id number] Refill Request Social History Tobacco Use Types [...] PM CDT Legal Sex Female 3:21 AM CHANNEL 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 Gender Identity Female 05/29/2018 3:24 PM CDT Sexual Orientation Straight 05/29/2018 3: 25 PM CDT documented as of this encounter Miscellaneous Notes * Telephone Encounter - Mary Swain RN - 03/17/2021 1:17 PM CST This refill is a duplicate of something already sent to the pharmacy or another refill already in process. Mary Swain RN [facility] NEL 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 documented in this encounter Plan of Treatment Not on file documented as of this encounter Visit Diagnoses Diagnosis Gastroesophageal reflux disease without esophagitis Esophageal reflux documented in this encounter Care Teams Corporate Traffic Manager Relationship Specialty Start Date End Date Nelson Chan MD [address] [address] PCP - General 06/18/04 Nelson Chan MD [address] [address] Assigned PCP 08/25/19 01/21/22 Chris Mcdaniel PA-C [address] [address] Assigned Neuroscience Provider 04/22/20 02/11/22 Nelson Chan MD [address] [place] [address] Assigned PCP 04/02/22 10/07/22 documented as of this encounter
--- OUTSIDE RECORDS SUMMARY | 2023-12-15 07:01 | XMS_ITS | Encounter Summary ---
Author Organization [place] Address [address] [facility] [place] [address] Care Team Providers Care Surgical Device Sales Representative Name Role Phone Nelson Chan MD Primary Care Provider + [phone] Nelson Chan MD Unavailable [phone] Chris Mcdaniel PA-C Unavailable +[phone] Nelson Chan MD Unavailable [phone] Reason for Visit * Reason Comments Sleep Problem Encounter Details Date Type Department Care Team (Late st Contact Info) Description 09/22/2021 Orders Only [facility] [place] [address] [address] Chris Mcdaniel, PA-C [address] [facility] [address] [place] [address] Obstructive sleep apnea (adult) (pediatric) [...] PM CDT Legal Sex Female 3:21 AM FISH LIVER SORTER Gender Identity Female 05/29/2018 3:24 PM CDT Sexual Orientation Straight 05/29/2018 3: 25 PM CDT documented as of this encounter Plan of Treatment Not on file documented as of this encounter Visit Diagnoses Diagnosis Obstructive sleep apnea (adult) (pediatric)- Primary documented in this encounter Care Teams Surgical Device Sales Representative Relationship Specialty Start Date End Date Nelson Chan MD [address] [address] PCP - General 06/18/04 Nelson Chan MD [address] [address] Assigned PCP 08/25/19 01/21/22 Chris Mcdaniel PA-C [address] [address] Assigned Neuroscience Provider 04/22/20 02/11/22 Nelson Chan MD [address] [place] [address] Assigned PCP 04/02/22 10/07/22 documented as of this encounter
--- OUTSIDE RECORDS SUMMARY | 2023-12-15 07:01 | XMS_ITS | Clinical Summary ---
Author Organization [place] Address [facility] [place] [address] Care Team Providers Care Freight Clerk Name Role Phone Nelson Topete MD Primary Care Provider [phone] Allergies Active Allergy Reactions Criticality Noted Date [...] PM CDT Legal Sex Female 3:21 AM DEPARTMENT HEAD JUNIOR COLLEGE Gender Identity Female 05/29/2018 3:24 PM CDT Sexual Orientation Straight 05/29/2018 3: 25 PM CDT Last Filed Vital Signs Vital Sign Reading Time Taken Comments Blood Pressure 170/100 01/09/2020 2:48 PM DEPARTMENT HEAD JUNIOR COLLEGE Pulse 100 01/09/2020 2:48 PM DEPARTMENT HEAD JUNIOR COLLEGE Temperature 36.6 ??C (97.9 ??F) 01/09/2020 2:48 PM CS T Respiratory Rate 18 01/09/2020 2:48 PM DEPARTMENT HEAD JUNIOR COLLEGE Oxygen Saturation 97% 01/09/2020 2:48 PM DEPARTMENT HEAD JUNIOR COLLEGE Inhaled Oxygen Concentration - - Weight 136.1 [...] screening mammogram COLONOSCOPY Routine 01/08/2020 11:37 AM DEPARTMENT HEAD JUNIOR COLLEGE BASIC METABOLIC PANEL STAT 02/02/2018 12:00 AM DEPARTMENT HEAD JUNIOR COLLEGE PAP IMAGED THIN LAYER SCREEN Routine 06/06/2014 12:00 AM CDT Screening for malignant neoplasm of cervix Routine general medical examination at a [facility] facility LIPID REFLEX TO DIRECT LDL PANEL [...] Final Result * COLONOSCOPY (01/08/2020 11:37 AM DEPARTMENT HEAD JUNIOR COLLEGE) COLONOSCOPY [facility] Patient Name: Britni Avila ?? Procedure Date: [...] continuously. The ?Olympus Adult Colonoscope, Model # CF-BL556F, ?[place] # [id number], SN # [id number] was introduced through ?the anus and advanced [...] Procedure Code(s): ? --- Professional --- ? 92653, Colonoscopy, flexible; with removal of tumor(s), polyp(s), or ? other lesion(s) by snare technique Diagnosis Code(s): ? --- Professional --- ? K63.5, Polyp of colon CPT copyright 2019 [employer]. All rights reserved. The codes documented in this report are preliminary and upon welder metal fab review may be revised to meet current compliance requirements. Electronically signed by Edmundo Mabry MD __ Edmundo Mabry MD 01/08/2020 1:20:03 PM I was physically present for the entire viewing portion of the exam. Edmundo Mabry MD Number of Addenda: 0 Note Initiated On: 01/08/2020 11:37 AM MRN: ?[id number] Procedure Date: ? 01/08/2020 11:37:27 AM Scope Withdrawal Time: 0 hours 7 minutes 17 seconds Total Procedure Duration: 0 hours 13 minutes 1 second Estimated Blood Loss: ? Scope In: 12:28:18 PM Scope Out: 12:41:19 PM RADIOLOGY RESULTS 01/08/2020 11:3 7 AM DEPARTMENT HEAD JUNIOR [employer] us Edmundo Mabry MD PROCEDURES Final Result RADIOLOGY RESULTS * (ABNORMAL) Basic metabolic panel (02/02/2018 12:00 AM DEPARTMENT HEAD JUNIOR [employer]LEGE) Sodium 142 133 - 144 mmol/L 02/02/2018 12:26 AM [facility] Potassium 3.6 3.4 - 5.3 mmol/L 02/02/2018 [...] Blood specimen (specimen) 02/02/2018 02/02/2018 12:01 AM DEPARTMENT HEAD JUNIOR COLLEGE us Mirna KENDRICK LAB - BLOOD ORDERABLES Fi nal Result [facility] [place] [address], [facility] [phone] * PAP IMAGED THIN LAYER SCREEN (06/06/2014 12:00 AM CDT) PAP NIL COPATH Copath Report Patient Name: BRITNI AVILA MR#: [id number] Specimen #: [id number] Collected: 06/06/2014 Received: 06/09/2014 Reported: 06/11/2014 13:53 [...] Edson Coyle M.D. Processed and screened at [facility] CLINICAL HISTORY: LMP: 07/08/03 Post Menopausal, Previous normal pap Date of Last Pap: 01/12/11, Papanicolaou Test Limitations: ??Cervical cytology is a screening test with limited sensitivity; regular screening is critical for cancer prevention; Pap tests are primarily effective for the diagnosis/preventi on of squamous cell carcinoma, not adenocarcinomas or other cancers. TESTING LAB LOCATION: [address] ??[id number] COLLECTION SITE: Client: ??[facility] Location: OXIM (S) COPATH Cytologic material (specimen) 06/06/2014 06/09/2014 10:13 AM CDT Nelson Topete MD LAB - OPTIME CLINICAL SPEC IMEN Final Result Performing Organization Address [facility] Co de Phone Number COPATH * (ABNORMAL) Lipid panel reflex to direct LDL (05/30/2011 9:48 AM CDT) Cholesterol 208(H) 0 - 200 mg/dL [facility] Comment: LDL Cholesterol is the primary guide to therapy. The NCEP recommends further evaluation of: patients with cholesterol greater than 200 mg/dL if additional risk factors are present, cholesterol greater than 240 mg/dL, triglycerides greater than 150 mg/dL, or HDL less than 40 mg/dL. Triglycerides 195(H) 0 - 150 mg/dL [facility] HDL Cholesterol 47(L) 50 - 110 mg/dL [facility] LDL Cholesterol Calculated 122 0 - 129 mg/dL [facility] Comment: LDL Cholesterol is the primary guide to therapy: LDL-cholesterol goal in high risk patients is <100 mg/dL and in very high risk patients is <70 mg/dL. VLDL-Cholesterol 39(H) 0 - 30 mg/dL [facility] Cholesterol/HDL Ratio 4.4 0.0 - 5.0 [facility] Blood specimen (specimen) 05/30/2011 9:48 AM CDT 05/30/2011 9:53 AM CDT Nelson Topete MD LAB - BLOOD ORDERABLES Fin al Result Performing Organization Address [facility] Co de Phone Number [facility] [address] [phone] * Dexa hip/pelvis/spine* (01/12/2011) Anatomical Region Laterality Modality Dexa Other Impressions 01/12/2011 BONE DENSIT[address]ETRY [address] [address] 01/12/2011 Patient: ??Britni Avila Chart: [id number] : ??1955 Age: ??55 year old Sex: ??female Referring provider: ??CINTHYA TOPETE Procedure: ??Bone density scanning was performed using DEXA technology performed on a [employer] scanner. ??Reporting is completed in the form of a T-score. ?? The T-score represents the standard deviation from peak bone mass based on a young healthy adult. Extractor And Wringer Operator performing scan: ??Nuria Cruz Reference T-Scores: ? [...] to bone densitometry performed on the same anchor.travel machine on 07/14. ??In the interim, there is the suggestion of a possible trend towards worsening of the lumbar spine, and no significant change of the femoral neck. Impression: Osteopenia (low bone mass) Suggest verification of adequate calcium and vitamin D intake. Dexa scan read and electronically signed by Tenzin Mcgrath M.D. Electronically filed by Zack Altamirano ??02/02/2011 ??3:05 PM Nelson Topete MD [facility] DEXA ORDERABLES Final Result from Last 3 Months or Most Recently Relevant to Health Maintenance Insurance [employer] MEDICARE Advance Directives For more information, please contact: [phone] * Full Code (Latest Code Status on File) Date Activated Date Inactivated Comments 10/25/2013 6:13 PM 10/26/2013 12:50 PM Care Teams Freight Clerk Relationship Specialty Start Date End Date Nelson Topete MD [address] [address] PCP - General 06/18/04
--- OUTSIDE RECORDS SUMMARY | 2023-12-15 07:01 | XMS_ITS | Encounter Summary ---
Author Organization [place] Address [address] [place] [address] Care Team Providers Care Marketing Account Executive Name Role Phone Nelson Chan MD Primary Care Provider + [phone] Nelson Chan MD Unavailable +[phone] Chris Mcdaniel PA-C Unavailable +[phone] Nelson Chan MD Unavailable +[phone] Encounter Details Date Type Department Care Team (Late st Contact Info) Description 12/25/2020 MyC Medical Advice [facility] [address] [address] Nelson Chan MD [address] [address] Social History Tobacco Use Types [...] PM CDT Legal Sex Female 3:21 AM PELLETIZER TENDER Gender Identity Female 05/29/2018 3:24 PM CDT Sexual Orientation Straight 05/29/2018 3: 25 PM CDT documented as of this encounter Plan of Treatment Not on file documented as of this encounter Visit Diagnoses Not on filedocumented in this encounter Care Teams Marketing Account Executive Relationship Specialty Start Date End Date Nelson Chan MD [address] [place] [address] PCP - General 06/18/04 Nelson Chan MD [address] [place] [address] Assigned PCP 08/25/19 01/21/22 Chris Mcdaniel PA-C [address] [address] Assigned Neuroscience Provider 04/22/20 02/11/22 Nelson Chan MD [address] [place] [address] Assigned PCP 04/02/22 10/07/22 documented as of this encounter
--- OUTSIDE RECORDS SUMMARY | 2023-12-15 07:01 | XMS_ITS | Encounter Summary ---
Author Organization [place] Address [address] [facility] [place] [address] Care Team Providers Care Community Resource Consultant Name Role Phone Nelson Chan MD Primary Care Provider + [phone] Nelson Chan MD Unavailable [phone] Sage Kincaid MD Unavailable [phone] Chris Mcdaniel PA-C Unavailable +[phone] Chris Mcdaniel PA-C Unavailable +[phone] Nelson Chan MD Unavailable [phone] Reason for Visit * Reason Onset Date Comments Appointment 07/30/2019 Please switch ap poitment to phone visit Encounter Details Date Type Department Care Team (Late st Contact Info) Description 07/30/2019 Telephone [facility] [address] [address] Chris Mcdaniel PA-C [address] [address] Appointment (Please switch appoitment to [...] PM CDT Legal Sex Female 3:21 AM AUTO SERVICE STATION ATTENDANT Gender Identity Female 05/29/2018 3:24 PM CDT [...] to reach patient: Home number on file [phone] (home) Best Time: any Can we leave a detailed message on this number? YES Travel screening: Not Applicable documented in this encounter Plan of Treatment Not on file documented as of this encounter Visit Diagnoses Not on filedocumented in this encounter Care Teams Community Resource Consultant Relationship Specialty Start Date End Date Nelson Chan MD [address] [address] PCP - General 06/18/04 Nelson Chan MD [address] [place] [address] Assigned PCP 08/25/19 01/21/22 [place] [address] [place] [address] Assigned Sleep Provider 11/29/1912/20 Chris Mcdaniel PA-C [address] [address] Assigned Sleep Provider 04/22/20 Chris Mcdaniel PA-C [address] [address] Assigned Neuroscience Provider 04/22/20 02/11/22 Nelson Chan MD [address] [place] [address] Assigned PCP 04/02/22 10/07/22 documented as of this encounter
--- OUTSIDE RECORDS SUMMARY | 2023-12-15 07:01 | XMS_ITS | Encounter Summary ---
Author Organization [place] Address [address] [facility] [address] Care Team Providers Care Tar Processing Technician Name Role Phone Nelson Chan MD Primary Care Provider + [phone] Nelson Chan MD Unavailable [phone] Chris Mcdaniel PA-C Unavailable +[phone] Nelson Chan MD Unavailable [phone] Encounter Details Date Type Department Care Team (Late st Contact Info) Description 09/28/2020 MyC Medical Advice [facility] [address] [address] Nelson Chan MD [address] [address] Social History Tobacco Use Types [...] PM CDT Legal Sex Female 3:21 AM LICENSING REGISTRATION EXAMINER Gender Identity Female 05/29/2018 3:24 PM CDT Sexual Orientation Straight 05/29/2018 3: 25 PM CDT documented as of this encounter Plan of Treatment Not on file documented as of this encounter Visit Diagnoses Not on filedocumented in this encounter Care Teams Tar Processing Technician Relationship Specialty Start Date End Date Nelson Chan MD [address] [place] [address] PCP - General 06/18/04 Nelson Chan MD [address] [place] [address] Assigned PCP 08/25/19 01/21/22 Chris Mcdaniel PA-C [address] [address] Assigned Neuroscience Provider 04/22/20 02/11/22 Nelson Chan MD [address] [place] [address] Assigned PCP 04/02/22 10/07/22 documented as of this encounter
--- OUTSIDE RECORDS SUMMARY | 2023-12-15 07:01 | XMS_ITS | Encounter Summary ---
Author Organization [place] Address [facility] [place] [address] Care Team Providers Care Powder Coater Name Role Phone Nelson Chan MD Primary Care Provider + [phone] Nelson Chan MD Unavailable [phone] Chris Mcdaniel PA-C Unavailable +[phone] Nelson Chan MD Unavailable [phone] Reason for Visit * Reason Comments Medication Refill Encounter Details Date Type Department Care Team (Late st Contact Info) Description 12/22/2020 Refill [facility] [address] [phone] Nelson Chan MD [address] [id number] Medication Refill Social History Tobacco Use Types [...] PM CDT Legal Sex Female 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 COMMAND POST SUPERINTENDENT Gender Identity Female 05/29/2018 3:24 PM CDT Sexual Orientation Straight 05/29/2018 3: 25 PM CDT documented as of this encounter Plan of Treatment Not on file documented as of this encounter Visit Diagnoses Diagnosis Gastroesophageal reflux disease without esophagitis Esophageal reflux documented in this encounter Care Teams Powder Coater Relationship Specialty Start Date End Date Nelson Chan MD [address] [place] [address] PCP - General 06/18/04 Nelson Chan MD [address] [place] [address] Assigned PCP 08/25/19 01/21/22 Chris Mcdaniel PA-C [address] [address] Assigned Neuroscience Provider 04/22/20 02/11/22 Nelson Chan MD [address] [place] [address] Assigned PCP 04/02/22 10/07/22 documented as of this encounter
--- OUTSIDE RECORDS SUMMARY | 2023-12-15 07:01 | XMS_ITS | Encounter Summary ---
Author Organization [place] Address [address] [facility] [place] [address] Care Team Providers Care Janitor And Cleaner Name Role Phone Nelson Chan MD Primary Care Provider [phone] Nelson Chan MD Unavailable [phone] Encounter Details Date Type Department Care Team (Late st Contact Info) Description 04/04/2022 [facility] [address] [place] [address] Chris Mcdaniel PA-C [address] [address] Social History Tobacco Use Types [...] PM CDT Legal Sex Female 3:21 AM SENIOR JAVASCRIPT DEVELOPER Gender Identity Female 05/29/2018 3:24 PM CDT Sexual Orientation Straight 05/29/2018 3: 25 PM CDT documented as of this encounter Plan of Treatment Not on file documented as of this encounter Visit Diagnoses Not on filedocumented in this encounter Care Teams Janitor And Cleaner Relationship Specialty Start Date End Date Nelson Chan MD [address] [place] [address] PCP - General 06/18/04 Nelson Chan MD [address] [place] [address] Assigned PCP 04/02/22 10/07/22 documented as of this encounter
--- OUTSIDE RECORDS SUMMARY | 2023-12-15 07:01 | XMS_ITS | Encounter Summary ---
Author Organization [place] Address [facility] [place] [address] Care Team Providers Care Welder Production Line Gas Name Role Phone Nelson Chan MD Primary Care Provider + [phone] Nelson Chan MD Unavailable [phone] Chris Mcdaniel PA-C Unavailable +[phone] Chris Mcdaniel PA-C Unavailable [phone] Nelson Chan MD Unavailable [phone] Reason for Visit * Reason Comments Medication Refill Encounter Details Date Type Department Care Team (Late st Contact Info) Description 12/31/2019 Refill [facility] [address] [address] Nelson Chan MD [address] [address] Medication Refill Social History Tobacco Use Types [...] PM CDT Legal Sex Female 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 No / Unsure 12/31/2019 5:41 PM AUTOMATIC BRINE MIXER OPERATOR documented as of this encounter Plan of Treatment Not on file documented as of this encounter Visit Diagnoses Diagnosis Tobacco abuse Tobacco use disorder documented in this encounter Care Teams Welder Production Line Gas Relationship Specialty Start Date End Date Nelson Chan MD [address] [place] [address] PCP - General 06/18/04 Nelson Chan MD [address] [place] [address] Assigned PCP 08/25/19 01/21/22 Chris Mcdaniel PA-C [address] [place] [address] Assigned Sleep Provider 04/22/20 Chris Mcdaniel PA-C [address] [place] [address] Assigned Neuroscience Provider 04/22/20 02/11/22 Nelson Chan MD [address] [place] [address] Assigned PCP 04/02/22 10/07/22 documented as of this encounter
--- OUTSIDE RECORDS SUMMARY | 2023-12-15 07:02 | XMS_ITS | Encounter Summary ---
Author Organization [place] Address [address] [facility] [place] [address] Care Team Providers Care Contract Administration Coordinator Name Role Phone Nelson Chan MD Primary Care Provider + [phone] Nelson Chan MD Unavailable [phone] Nelson Chan MD Unavailable + [phone] Nelson Chan MD Unavailable [phone] Sage Kincaid MD Unavailable [phone] Chris Mcdaniel PA-C Unavailable +[phone] Chris Mcdaniel PA-C Unavailable [phone] Nelson Chan MD Unavailable [phone] Encounter Details Date Type Department Care Team (Late st Contact Info) Description 01/19/[address] [address] [place] Social History Tobacco Use Types Packs/Day Years Used Date Smoking Tobacco: Every Day Cigarettes 1 40 Smokeless Tobacco: Never Alcohol Use Standard Drinks/Week Comments No 0 (1 standard drink = 0.6 oz pur e alcohol) Comments No Sex and Gender Information Value Date Recorded Sex Assigned at Female 05/29/2018 3:24 PM CDT Legal 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 Gender Identity Female 05/29/2018 3:24 PM CDT Sexual Orientation Straight 05/29/2018 3: 25 PM CDT documented as of this encounter Plan of Treatment Not on file documented as of this encounter Visit Diagnoses Not on filedocumented in this encounter Care Teams Contract Administration Coordinator Relationship Specialty Start Date End Date Nelson Chan MD [address] [place] [address] PCP - General 06/18/04 Nelson Chan MD [address] [place] [address] PCP - Assigned PCP 02/25/13 04/10/18 Nelson Chan MD [address] [place] [address] Assigned PCP 02/25/13 06/30/18 Nelson Chan MD [address] [place] [address]35[address] Assigned PCP 08/25/19 01/21/22 [place] [address] [address] Assigned Sleep Provider 11/29/1912/20 Chris Mcdaniel PA-C [address] [place] [id number] Assigned Sleep Provider 04/22/20 Chris Mcdaniel PA-C [address] [place] [id number] Assigned Neuroscience Provider 04/22/20 02/11/22 Nelson Chan MD [address] [place] [address] Assigned PCP 04/02/22 10/07/22 documented as of this encounter
--- OUTSIDE RECORDS SUMMARY | 2023-12-15 07:02 | XMS_ITS | Encounter Summary ---
Author Organization [place] Address [address] [facility] [place] [address] Care Team Providers Care District Recruiter Name Role Phone Nelson Chan MD Primary Care Provider + [phone] Nelson Chan MD Unavailable [phone] Nelson Chan MD Unavailable + [phone] Nelson Chan MD Unavailable [phone] Sage Kincaid MD Unavailable [phone] Chris Mcdaniel PA-C Unavailable +[phone] Chris Mcdaniel PA-C Unavailable [phone] Nelson Chan MD Unavailable [phone] Encounter Details Date Type Department Care Team (Late st Contact Info) Description 01/05/[address] [address] [place] Social History Tobacco Use Types Packs/Day Years Used Date Smoking Tobacco: Every Day Cigarettes 1 30 Alcohol Use Standard Drinks/Week Comments No 0 (1 standard drink = 0.6 oz pur e alcohol) Comments No Sex and Gender Information Value Date Recorded Sex Assigned at Female 05/29/2018 3:24 PM CDT 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 Gender Identity Female 05/29/2018 3:24 PM CDT Sexual Orientation Straight 05/29/2018 3: 25 PM CDT documented as of this encounter Plan of Treatment Not on file documented as of this encounter Visit Diagnoses Not on filedocumented in this encounter Care Teams District Recruiter Relationship Specialty Start Date End Date Nelson Chan MD [address] [place] [address] PCP - General 06/18/04 Nelson Chan MD [address] [place] [address] PCP - Assigned PCP 02/25/13 04/10/18 Nelson Chan MD [address] [place] [address] Assigned PCP 02/25/13 06/30/18 Nelson Chan MD [address] [place] [address] Assigned PCP 08/25/19 01/21/22 [place] [address] [address] Assigned Sleep Provider 11/29/1912/20 Chris Mcdaniel PA-C [address] [facility] [place] [id number] Assigned Sleep Provider 04/22/20 Chris Mcdaniel PA-C [address] [place] [id number] Assigned Neuroscience Provider 04/22/20 02/11/22 Nelson Chan MD [address] [place] [address] Assigned PCP 04/02/22 10/07/22 documented as of this encounter
--- OUTSIDE RECORDS SUMMARY | 2023-12-15 07:02 | XMS_ITS | Encounter Summary ---
Author Organization [place] Address [address] [facility] [place] [address] Care Team Providers Care Chief Media Officer Name Role Phone Nelson Chan MD Primary Care Provider + [phone] Nelson Chan MD Unavailable [phone] Nelson Chan MD Unavailable [phone] Nelson Chan MD Unavailable [phone] Sage Kincaid MD Unavailable [phone] Chris Mcdaniel PA-C Unavailable +[phone] Chris Mcdaniel PA-C Unavailable [phone] Nelson Chan MD Unavailable [phone] Encounter Details Date Type Department Care Team (Late st Contact Info) Description 02/09/2017 [facility] [address] [address] Nelson Chan MD [address] [id number] Social History Tobacco Use Types Packs/Day Years Used Date Smoking Tobacco: Former Cigarettes 1 40 S tarted: 10/07/2012 Smokeless Tobacco: Never Alcohol Use Standard Drinks/Week Comments No 0 (1 standard drink = 0.6 oz pur e alcohol) Comments No Sex and Gender Information Value Date Recorded Sex Assigned at Female 05/29/2018 3:24 PM CDT Legal Sex Female 3:21 AM 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 Gender Identity Female 05/29/2018 3:24 PM CDT Sexual Orientation Straight 05/29/2018 3: 25 PM CDT documented as of this encounter Plan of Treatment Not on file documented as of this encounter Visit Diagnoses Not on filedocumented in this encounter Care Teams Chief Media Officer Relationship Specialty Start Date End Date Nelson Chan MD [address] [place] [address] PCP - General 06/18/04 Nelson Chan MD [address] [place] [address] PCP - Assigned PCP 02/25/13 04/10/18 Nelson Chan MD [address] [place] [address] Assigned PCP 02/25/13 06/30/18 Nelson Chan MD [address] [place] [address] Assigned PCP 08/25/19 01/21/22 [place] [address] [place] [address] Assigned Sleep Provider 11/29/1912/20 Chris Mcdaniel PA-C [address] [place] [address] Assigned Sleep Provider 04/22/20 Chris Mcdaniel PA-C [address] [address] Assigned Neuroscience Provider 04/22/20 02/11/22 Nelson Chan MD [address] [address] Assigned PCP 04/02/22 10/07/22 documented as of this encounter
--- OUTSIDE RECORDS SUMMARY | 2023-12-15 07:02 | XMS_ITS | Encounter Summary ---
Author Organization [place] Address [address] [facility] [place] [address] Care Team Providers Care Outreach Team Member Name Role Phone Nelson Chan MD Primary Care Provider + [phone] Nelson Chan MD Unavailable + [phone] Nelson Chan MD Unavailable + [phone] Nelson Chan MD Unavailable +[phone] Sage Kincaid MD Unavailable +[phone] Chris Mcdaniel PA-C Unavailable +[phone] Chris Mcdaniel PA-C Unavailable +[phone] Nelson Chan MD Unavailable + [phone] Encounter Details Date Type Department Care Team (Late st Contact Info) Description 04/09/2010 [facility] [address] [address] Nelson Chan MD [address] [address] Social History Tobacco Use Types Packs/Day Years Used Date Smoking Tobacco: Every Day Cigarettes 1 30 Alcohol Use Standard Drinks/Week Comments No 0 (1 standard drink = 0.6 oz pur e alcohol) Comments No Sex and Gender Information Value Date Recorded Sex Assigned at Female 05/29/2018 3:24 PM CDT Legal 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 Female 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 Gender Identity Female 05/29/2018 3:24 PM CDT Sexual Orientation Straight 05/29/2018 3: 25 PM CDT documented as of this encounter Plan of Treatment Not on file documented as of this encounter Visit Diagnoses Not on filedocumented in this encounter Care Teams Outreach Team Member Relationship Specialty Start Date End Date Nelson Chan MD [address] [address] PCP - General 06/18/04 Nelson Chan MD [address] [address] PCP - Assigned PCP 02/25/13 04/10/18 Nelson Chan MD [address] [place] [address] Assigned PCP 02/25/13 06/30/18 Nelson Chan MD [address] [place] [address] Assigned PCP 08/25/19 01/21/22 [place] [address] [place] [address] Assigned Sleep Provider 11/29/1912/20 Chris Mcdaniel PA-C [address] [facility] [place] [address] Assigned Sleep Provider 04/22/20 Chris Mcdaniel PA-C [address] [facility] [address] [place] [address] Assigned Neuroscience Provider 04/22/20 02/11/22 Nelson Chan MD [address] [address] Assigned PCP 04/02/22 10/07/22 documented as of this encounter
--- OUTSIDE RECORDS SUMMARY | 2023-12-15 07:02 | XMS_ITS | Encounter Summary ---
Author Organization [place] Address [address] [place] [address] Care Team Providers Care Fuel Assembler Name Role Phone Nelson Chan MD Primary Care Provider + [phone] Nelson Chan MD Unavailable +[phone] Nelson Chan MD Unavailable +[phone] Nelson Chan MD Unavailable +[phone] Sage Kincaid MD Unavailable +[phone] Chris Mcdaniel PA-C Unavailable +[phone] Chris Mcdaniel PA-C Unavailable +[phone] Nelson Chan MD Unavailable +[phone] Reason for Visit * Reason Onset Date Comments Refill Request 05/29/2015 Encounter Details Date Type Department Care Team (Late st Contact Info) Description 05/29/2015 [facility] Refill [facility] [address] [address] Nelson Chan MD [address] [id number] Refill Request Social History Tobacco Use Types Packs/Day Years Used Date Smoking Tobacco: Former Cigarettes 1 40 S tarted: 10/07/2012 Smokeless Tobacco: Never Alcohol Use Standard Drinks/Week Comments No 0 (1 standard drink = 0.6 oz pur e alcohol) Comments No Sex and Gender Information Value Date Recorded Sex Assigned at Female 05/29/2018 3:24 PM CDT Legal Sex Female 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 [address] [place] [address] Comment: documented in this encounter Plan of Treatment Not on file documented as of this encounter Visit Diagnoses Diagnosis Tobacco abuse Tobacco use disorder documented in this encounter Care Teams Fuel Assembler Relationship Specialty Start Date End Date Nelson Chan MD [address] [place] [address] PCP - General 06/18/04 Nelson Chan MD [address] [place] [address] PCP - Assigned PCP 02/25/13 04/10/18 Nelson Chan MD [address] [place] [address] Assigned PCP 02/25/13 06/30/18 Nelson Chan MD [address] [place] [address] Assigned PCP 08/25/19 01/21/22 [place] [address] [facility] [address] [place] [address] Assigned Sleep Provider 11/29/1912/20 Chris Mcdaniel PA-C [address] [facility] [address] [place] [address] Assigned Sleep Provider 04/22/20 Chris Mcdaniel PA-C [address] [facility] [address] [place] [address] Assigned Neuroscience Provider 04/22/20 02/11/22 Nelson Chan MD [address] [place] [address] Assigned PCP 04/02/22 10/07/22 documented as of this encounter
--- OUTSIDE RECORDS SUMMARY | 2023-12-15 07:02 | XMS_ITS | Encounter Summary ---
Author Organization [place] Address [address] [place] [address] Care Team Providers Care Spa Receptionist Name Role Phone Nelson Chan MD Primary Care Provider + [phone] Nelson Chan MD Unavailable + [phone] Nelson Chan MD Unavailable + [phone] Nelson Chan MD Unavailable +[phone] Sage Kincaid MD Unavailable +[phone] Chris Mcdaniel PA-C Unavailable +[phone] Chris Mcdaniel PA-C Unavailable [phone] Nelson Chan MD Unavailable [phone] Encounter Details Date Type Department Care Team (Late st Contact Info) Description 10/23/2009 [facility] Medical Advice Initial Department [facility] Social History Tobacco Use Types Packs/Day Years Used Date Smoking Tobacco: Every Day Cigarettes 1 30 Alcohol Use Standard Drinks/Week Comments No 0 (1 standard drink = 0.6 oz pur e alcohol) Comments No Sex and Gender Information Value Date Recorded Sex Assigned at Female 05/29/2018 3:24 PM CDT Legal 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 Gender Identity Female 05/29/2018 3:24 PM CDT Sexual Orientation Straight 05/29/2018 3: 25 PM CDT documented as of this encounter Plan of Treatment Not on file documented as of this encounter Visit Diagnoses Not on filedocumented in this encounter Care Teams Spa Receptionist Relationship Specialty Start Date End Date Nelson Chan MD [address] [place] [address] PCP - General 06/18/04 Nelson Chan MD [address] [place] [address] PCP - Assigned PCP 02/25/13 04/10/18 Nelson Chan MD [address] [place] [address] Assigned PCP 02/25/13 06/30/18 Nelson Chan MD [address] [place] [address] Assigned PCP 08/25/19 01/21/22 [place] [address] G[address]NA[address] [place] [address] Assigned Sleep Provider 11/29/1912/20 Chris Mcdaniel PA-C [address] [facility] [address] [place] [address] Assigned Sleep Provider 04/22/20 Chris Mcdaniel PA-C [address] [facility] [address] [place] [address] Assigned Neuroscience Provider 04/22/20 02/11/22 Nelson Chan MD [address] [address] Assigned PCP 04/02/22 10/07/22 documented as of this encounter
--- OUTSIDE RECORDS SUMMARY | 2023-12-15 07:02 | XMS_ITS | Encounter Summary ---
Author Organization [place] Address [address] [place] [address] Care Team Providers Care Poultry Helper Name Role Phone Nelson Chan MD Primary Care Provider + [phone] Nelson Chan MD Unavailable + [phone] Nelson Chan MD Unavailable + [phone] Nelson Chan MD Unavailable +[phone] Sage Kincaid MD Unavailable +[phone] Chris Mcdaniel PA-C Unavailable +[phone] Chris Mcdaniel PA-C Unavailable [phone] Nelson Chan MD Unavailable + [phone] Encounter Details Date Type Department Care Team (Late st Contact Info) Description 04/10/2009 [facility] [address] [address] Nelson Chan MD [address] [address] Social History Tobacco Use Types Packs/Day Years Used Date Smoking Tobacco: Every Day Cigarettes 1 30 Alcohol Use Standard Drinks/Week Comments No 0 (1 standard drink = 0.6 oz pur e alcohol) Comments No Sex and Gender Information Value Date Recorded Sex Assigned at Female 05/29/2018 3:24 PM CDT 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 Gender Identity Female 05/29/2018 3:24 PM CDT Sexual Orientation Straight 05/29/2018 3: 25 PM CDT documented as of this encounter Plan of Treatment Not on file documented as of this encounter Visit Diagnoses Not on filedocumented in this encounter Care Teams Poultry Helper Relationship Specialty Start Date End Date Nelson Chan MD [address] [address] PCP - General 06/18/04 Nelson Chan MD [address] [address] PCP - Assigned PCP 02/25/13 04/10/18 Nelson Chan MD [address] [place] [address] Assigned PCP 02/25/13 06/30/18 Nelson Chan MD [address] [place] [address] Assigned PCP 08/25/19 01/21/22 [place] [address] [place] [address] Assigned Sleep Provider 11/29/1912/20 Chris Mcdaniel PA-C [address] [facility] [place] [address] Assigned Sleep Provider 04/22/20 Chris Mcdaniel PA-C [address] [facility] 103 [place] [address] Assigned Neuroscience Provider 04/22/20 02/11/22 Nelson Chan MD [address] [address] Assigned PCP 04/02/22 10/07/22 documented as of this encounter
--- OUTSIDE RECORDS SUMMARY | 2023-12-15 07:02 | XMS_ITS | Encounter Summary ---
Author Organization [place] Address [address] [facility] [place] [address] Care Team Providers Care Bridge Operator Name Role Phone Nelson Chan MD Primary Care Provider + [phone] Nelson Chan MD Unavailable +[phone] Nelson Chan MD Unavailable +[phone] Nelson Chan MD Unavailable +[phone] Sage Kincaid MD Unavailable +[phone] Chris Mcdaniel PA-C Unavailable +[phone] Chris Mcdaniel PA-C Unavailable [phone] Nelson Chan MD Unavailable +[phone] Reason for Visit * Reason Onset Date Comments Smoking Cessation 05/12/2008 Encounter Details Date Type Department Care Team (Late st Contact Info) Description 05/12/2008 [facility] Adv[facility] [address] [address] Nelson Chan MD [address] [id number] Smoking Cessation Social History Tobacco Use Types Packs/Day Years Used Date Smoking Tobacco: Every Day Cigarettes 1 30 Alcohol Use Standard Drinks/Week Comments No 0 (1 standard drink = 0.6 oz pur e alcohol) Comments No Sex and Gender Information Value Date Recorded Sex Assigned at Female 05/29/2018 3:24 PM CDT Legal Sex Female 3:21 AM WIRE TWISTER Gender Identity Female 05/29/2018 3:24 PM CDT Sexual Orientation Straight 05/29/2018 3: 25 PM CDT documented as of this encounter Plan of Treatment Not on file documented as of this encounter Visit Diagnoses Diagnosis Tobacco use disorder- Primary documented in this encounter Care Teams Bridge Operator Relationship Specialty Start Date End Date Nelson Chan MD [address] [place] [address] PCP - General 06/18/04 Nelson Chan MD [address] [place] [address] PCP - Assigned PCP 02/25/13 04/10/18 Nelson Chan MD [address] [place] [address] Assigned PCP 02/25/13 06/30/18 Nelson Chan MD [address] [place] [address] Assigned PCP 08/25/19 01/21/22 [place] [address] [place] [address] Assigned Sleep Provider 11/29/1912/20 Chris Mcdaniel PA-C [address] [place] [address] Assigned Sleep Provider 04/22/20 Chris Mcdaniel PA-C [address] [address] Assigned Neuroscience Provider 04/22/20 02/11/22 Nelson Chan MD [address] [place] [address] 785120 Assigned PCP 04/02/22 10/07/22 documented as of this encounter
--- OUTSIDE RECORDS SUMMARY | 2023-12-15 07:02 | XMS_ITS | Clinical Summary ---
Author Organization [facility] [facility] Address [place], [place] [address] Care Team Providers Care Petrographer Name Role Phone Thea Huggins PA-C Primary Care Provider [phone] Allergies No known active allergies Medications Medication [...] Comments Blood Pressure 128/97 04/07/2023 11:00 AM ARTILLERY MAINTENANCE SUPERVISOR Pulse 72 04/07/2023 11:00 AM ARTILLERY MAINTENANCE SUPERVISOR Temperature 37 ??C (98.6 ??F) 04/07/2023 10: 00 AM ARTILLERY MAINTENANCE SUPERVISOR Respiratory Rate 20 04/07/2023 10:0 0 AM ARTILLERY MAINTENANCE SUPERVISOR Oxygen Saturation 96% 04/07/2023 11: 00 AM ARTILLERY MAINTENANCE SUPERVISOR Inhaled Oxygen Concentration - - Weight 156.2 kg (344 lb 4.8 oz) 024 10:00 AM ARTILLERY MAINTENANCE SUPERVISOR Height 162.6 cm (5' 4) 04/07/2023 10:0 0 AM ARTILLERY MAINTENANCE SUPERVISOR Body Mass Index 59.1 04/07/2023 10:00 AM ARTILLERY MAINTENANCE SUPERVISOR Plan of Treatment Health Maintenance Due Date [...] Code Status Discussion: Reviewed Preferences Care Teams Petrographer Relationship Specialty Start Date End Date Thea Huggins PA-C [address] [place] [address] PCP - General Emergency Medicine 01/20/22
--- OUTSIDE RECORDS SUMMARY | 2023-12-15 07:02 | XMS_ITS | Encounter Summary ---
Author Organization [place] Address [address] [facility] [place] [address] Care Team Providers Care Polls Or Surveys Interviewer Name Role Phone Nelson Chan MD Primary Care Provider + [phone] Muna Cade MD Primary Care Provider +[phone] Nelson Chan MD Unavailable [phone] Nelson Chan MD Unavailable +[phone] Nelson Chan MD Unavailable + [phone] Sage Kincaid MD Unavailable +[phone] Chris Mcdaniel PA-C Unavailable +[phone] Chris Mcdaniel PA-C Unavailable +[phone] Nelson Chan MD Unavailable + [phone] Encounter Details Date Type Department Care Team (Late st Contact Info) Description 01/04/[address] [address] Muna Cade MD NO INFO FOUND [place] [address] ER ENC (Primary Dx) Social History Tobacco [...] PM CDT Legal Sex Female 3:21 AM CREDIT HISTORIAN Gender Identity Female 05/29/2018 3:24 PM CDT Sexual Orientation Straight 05/29/2018 3: 25 PM CDT documented as of this encounter Progress Notes * 01/04/2002 11:59 PM CSTAddended by: BRITTANY PRAJAPATI on: 01/09/2002,2:47 PM Modules accepted: Order Summary, Progress Notes Dec 00:00 Emergency Department Encounter-[facility] HANNY SOLIS () [Entered: 00 :00 Mold Car Pusher ([facility])] CHIEF COMPLAINT: Chest pain. HISTORY OF PRESENT ILLNESS: Britni varela is a 46-year-old female who had relatively sudden onset, but gradually worsening mid epigastric abdominal/chest pain with radiation into her back. She described it as burning and stabbing in natur e. It came on about a half hour ago. It was initially unresponsive to antacids that she took at [facility] and she came in for evaluation. She [...] rhythm at 78 beats per minute. Normal [place] and QT intervals. There is no ST [...] reflux disease. Mauro SOLIS MD MT: Document: [id number] [place], [place] Name: BRITNI AVILA EMERGENCY ROOM ENCOUNTER Page 3 of 2 LC N: ER DSC: 01/04/2002 [place], [place] Name: BRITNI AVILA MR#: : Admit Date: -34 1955 01/04/2002 Doctor: Mauro SOLIS MD EMERGENCY R OOM ENCOUNTER Page 1 of 2 Electronically filed by Brittany Prajapati 01/09/2002 2:46 PM documented in this encounter Plan of Treatment Not on file documented as of this encounter Visit Diagnoses Diagnosis ER ENC- Primary documented in this encounter Care Teams Polls Or Surveys Interviewer Relationship Specialty Start Date End Date Nelson Chan MD [address] [place] [place] [address] PCP - General 06/18/04 Muna Cade MD NO INFO FOUND [place] [place] [address] PCP - General 01/07/02 06/17/04 Nelson Chan MD [address] [place] [place] [address] PCP - Assigned PCP 02/25/13 04/10/18 Nelson Chan MD [address] [place] [place] [address] Assigned PCP 02/25/13 06/30/18 Nelson Chan MD [address] [place] [address] Assigned PCP 08/25/19 01/21/22 [place] [address] [place] [address] Assigned Sleep Provider 11/29/1912/20 Chris Mcdaniel PA-C [address] [facility] [address] [place] [address] Assigned Sleep Provider 04/22/20 Chris Mcdaniel PA-C [address] [facility] [address] [place] [address] Assigned Neuroscience Provider 04/22/20 02/11/22 Nelson Cahn MD [address] [place] [address] Assigned PCP 04/02/22 10/07/22 documented as of this encounter
--- OUTSIDE RECORDS SUMMARY | 2023-12-15 07:02 | XMS_ITS | Encounter Summary ---
Author Organization [place] Address [address] [facility] [place] [address] Care Team Providers Care Ash Kier Boiler Name Role Phone Nelson Chan MD Primary Care Provider + [phone] Nelson Chan MD Unavailable + [phone] Nelson Chan MD Unavailable + [phone] Nelson Chan MD Unavailable +[phone] Sage Kincaid MD Unavailable +[phone] Chris Mcdaniel PA-C Unavailable +[phone] Chris Mcdaniel PA-C Unavailable [phone] Nelson Chan MD Unavailable + [phone] Encounter Details Date Type Department Care Team (Late st Contact Info) Description 05/09/2011 [facility] [address] [address] Nelson Chan MD [address] [address] Social History Tobacco Use Types Packs/Day Years Used Date Smoking Tobacco: Every Day Cigarettes 1 40 Alcohol Use Standard Drinks/Week Comments No 0 (1 standard drink = 0.6 oz pur e alcohol) Comments No Sex and Gender Information Value Date Recorded Sex Assigned at Female 05/29/2018 3:24 PM CDT Legal Sex Female 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 Gender Identity Female 05/29/2018 3:24 PM CDT Sexual Orientation Straight 05/29/2018 3: 25 PM CDT documented as of this encounter Plan of Treatment Not on file documented as of this encounter Visit Diagnoses Not on filedocumented in this encounter Care Teams Ash Kier Boiler Relationship Specialty Start Date End Date Nelson Chan MD [address] [address] PCP - General 06/18/04 Nelson Chan MD [address] [address] PCP - Assigned PCP 02/25/13 04/10/18 Nelson Chan MD [address] [place] [address] Assigned PCP 02/25/13 06/30/18 Nelson Chan MD [address] [place] [address] Assigned PCP 08/25/19 01/21/22 [place] [address] [place] [address] Assigned Sleep Provider 11/29/1912/20 Chris Mcdaniel PA-C [address] [facility] [place] [address] Assigned Sleep Provider 04/22/20 Chris Mcdaniel PA-C [address] [facility] [address] [place] [address] Assigned Neuroscience Provider 04/22/20 02/11/22 Nelson Chan MD [address] [address] Assigned PCP 04/02/22 10/07/22 documented as of this encounter
--- OUTSIDE RECORDS SUMMARY | 2023-12-15 07:02 | XMS_ITS | Encounter Summary ---
Author Organization [place] Address [address] [facility] [place] [address] Care Team Providers Care De Icer Name Role Phone Nelson Chan MD Primary Care Provider + [phone] Nelson Chan MD Unavailable + [phone] Nelson Chan MD Unavailable +[phone] Nelson Chan MD Unavailable +[phone] Sage Kincaid MD Unavailable +[phone] Chris Mcdaniel PA-C Unavailable +[phone] Chris Mcdaniel PA-C Unavailable [phone] Nelson Chan MD Unavailable + [phone] Encounter Details Date Type Department Care Team (Late st Contact Info) Description 01/25/2011 [facility] [address] [address] Nelson Chan MD [address] [address] Social History Tobacco Use Types Packs/Day Years Used Date Smoking Tobacco: Every Day Cigarettes 1 30 Alcohol Use Standard Drinks/Week Comments No 0 (1 standard drink = 0.6 oz pur e alcohol) Comments No Sex and Gender Information Value Date Recorded Sex Assigned at Female 05/29/2018 3:24 PM CDT Legal Sex Female 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 DIRECTOR OF 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 Gender Identity Female 05/29/2018 3:24 PM CDT Sexual Orientation Straight 05/29/2018 3: 25 PM CDT documented as of this encounter Plan of Treatment Not on file documented as of this encounter Visit Diagnoses Not on filedocumented in this encounter Care Teams De Icer Relationship Specialty Start Date End Date Nelson Chan MD [address] [address] PCP - General 06/18/04 Nelson Chan MD [address] [address] PCP - Assigned PCP 02/25/13 04/10/18 Nelson Chan MD [address] [place] [address] Assigned PCP 02/25/13 06/30/18 Nelson Chan MD [address] [place] [address] Assigned PCP 08/25/19 01/21/22 [place] [address] [place] [address] Assigned Sleep Provider 11/29/1912/20 Chris Mcdaniel PA-C [address] [facility] [place] [address] Assigned Sleep Provider 04/22/20 Chris Mcdaniel PA-C [address] [facility] [address] [place] [address] Assigned Neuroscience Provider 04/22/20 02/11/22 Nelson Chan MD [address] [address] Assigned PCP 04/02/22 10/07/22 documented as of this encounter
--- OUTSIDE RECORDS SUMMARY | 2023-12-15 07:02 | XMS_ITS | Encounter Summary ---
Author Organization [place] Address [address] [facility] [place] [address] Care Team Providers Care Water Filterer Name Role Phone Nelson Chan MD Primary Care Provider + [phone] Nelson Chan MD Unavailable [phone] Nelson Chan MD Unavailable +[phone] Nelson Chan MD Unavailable +[phone] Sage Kincaid MD Unavailable +[phone] Chris Mcdaniel PA-C Unavailable +[phone] Chris Mcdaniel PA-C Unavailable [phone] Nelson Chan MD Unavailable +[phone] Encounter Details Date Type Department Care Team (Latest Contact Info) Description 09/20/2011 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 Gender Identity Female 05/29/2018 3:24 PM [...] unspecified documented in this encounter Care Teams Water Filterer Relationship Specialty Start Date End Date Nelson Chan MD [address] [address] PCP - General 06/18/04 Nelson Chan MD [address] [place] [address] PCP - Assigned PCP 02/25/13 04/10/18 Nelson Chan MD [address] [place] [address] Assigned PCP 02/25/13 06/30/18 Nelson Chan MD [address] [place] [address] Assigned PCP 08/25/19 01/21/22 [place] [address] [place] [address] Assigned Sleep Provider 11/29/1912/20 Chris Mcdaniel PA-C [address] [facility] [address] [place] [address] Assigned Sleep Provider 04/22/20 Chris Mcdaniel PA-C [address] [facility] [address] [place] [address] Assigned Neuroscience Provider 04/22/20 02/11/22 Nelson Chan MD [address] [place] [address] Assigned PCP 04/02/22 10/07/22 documented as of this encounter
--- OUTSIDE RECORDS SUMMARY | 2023-12-15 07:02 | XMS_ITS | Encounter Summary ---
Author Organization [place] Address [address] [facility] [place] [address] Care Team Providers Care Repairer Welding Systems And Equipment Name Role Phone Nelson Chan MD Primary Care Provider + [phone] Nelson Chan MD Unavailable + [phone] Nelson Chan MD Unavailable + [phone] Nelson Chan MD Unavailable +[phone] Sage Kincaid MD Unavailable +[phone] Chris Mcdaniel PA-C Unavailable +[phone] Chris Mcdaniel PA-C Unavailable +[phone] Nelson Chan MD Unavailable + [phone] Encounter Details Date Type Department Care Team (Late st Contact Info) Description 04/11/2005 [facility] [address] [address] Nelson Chan MD [address] [address] Social History Tobacco Use Types Packs/Day Years Used Date Smoking Tobacco: Every Day Cigarettes 1 30 Alcohol Use Standard Drinks/Week Comments No 0 (1 standard drink = 0.6 oz pur e alcohol) Comments No Sex and Gender Information Value Date Recorded Sex Assigned at Female 05/29/2018 3:24 PM CDT Legal Sex Female 3:21 AM PRODUCT 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 Gender Identity Female 05/29/2018 3:24 PM CDT Sexual Orientation Straight 05/29/2018 3: 25 PM CDT documented as of this encounter Plan of Treatment Not on file documented as of this encounter Visit Diagnoses Not on filedocumented in this encounter Care Teams Repairer Welding Systems And Equipment Relationship Specialty Start Date End Date Nelson Chan MD [address] [address] PCP - General 06/18/04 Nelson Chan MD [address] [address] PCP - Assigned PCP 02/25/13 04/10/18 Nelson Chan MD [address] [place] [address] Assigned PCP 02/25/13 06/30/18 Nelson Chan MD [address] [place] [address] Assigned PCP 08/25/19 01/21/22 [place] [address] [place] [address] Assigned Sleep Provider 11/29/1912/20 Chris Mcdaniel PA-C [address] [facility] [place] [address] Assigned Sleep Provider 04/22/20 Chris Mcdaniel PA-C [address] [facility] [address] [place] [address] Assigned Neuroscience Provider 04/22/20 02/11/22 Nelson Chan MD [address] [address] Assigned PCP 04/02/22 10/07/22 documented as of this encounter
--- OUTSIDE RECORDS SUMMARY | 2023-12-15 07:02 | XMS_ITS | Encounter Summary ---
Author Organization [place] Address [address] [facility] [place] [address] Care Team Providers Care Manager Marketing Sales Name Role Phone Nelson Chan MD Primary Care Provider + [phone] Nelson Chan MD Unavailable [phone] Nelson Chan MD Unavailable + [phone] Nelson Chan MD Unavailable +[phone] Sage Kincaid MD Unavailable +[phone] Chris Mcdaniel PA-C Unavailable +[phone] Chris Mcdaniel PA-C Unavailable [phone] Nelson Chan MD Unavailable +[phone] Encounter Details Date Type Department Care Team (Late st Contact Info) Description 06/20/2011 [facility] [place] Social History Tobacco Use Types Packs/Day Years Used Date Smoking Tobacco: Every Day Cigarettes 1 40 Smokeless Tobacco: Never Alcohol Use Standard Drinks/Week Comments No 0 (1 standard drink = 0.6 oz pur e alcohol) Comments No Sex and Gender Information Value Date Recorded Sex Assigned at Female 05/29/2018 3:24 PM CDT Legal Sex Female 3: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 Gender Identity Female 05/29/2018 3:24 PM CDT Sexual Orientation Straight 05/29/2018 3: 25 PM CDT documented as of this encounter Plan of Treatment Not on file documented as of this encounter Visit Diagnoses Not on filedocumented in this encounter Care Teams Manager Marketing Sales Relationship Specialty Start Date End Date Nelson Chan MD [address] [place] [address] PCP - General 06/18/04 Nelson Chan MD [address] [place] [address] PCP - Assigned PCP 02/25/13 04/10/18 Nelson Chan MD [address] [place] [address] Assigned PCP 02/25/13 06/30/18 Nelson Chan MD [address] [place] [address] Assigned PCP 08/25/19 01/21/22 [place] [address] [place] [address] Assigned Sleep Provider 11/29/1912/20 Chris Mcdaniel PA-C [address] [place] [address] [place] [address] Assigned Sleep Provider 04/22/20 Chris Mcdaniel PA-C [address] [place] [address] [place] [address] Assigned Neuroscience Provider 04/22/20 02/11/22 Nelson Chan MD [address] [place] [address] Assigned PCP 04/02/22 10/07/22 documented as of this encounter
--- OUTSIDE RECORDS SUMMARY | 2023-12-15 07:02 | XMS_ITS | Encounter Summary ---
Author Organization [place] Address [address] [facility] [place] [address] Care Team Providers Care Toll Line Inspector Name Role Phone Nelson Chan MD Primary Care Provider + [phone] Nelson Chan MD Unavailable + [phone] Nelson Chan MD Unavailable + [phone] Nelson Chan MD Unavailable +[phone] Sage Kincaid MD Unavailable +[phone] Chris Mcdaniel PA-C Unavailable +[phone] Chris Mcdaniel PA-C Unavailable [phone] Nelson Chan MD Unavailable + [phone] Encounter Details Date Type Department Care Team (Late st Contact Info) Description 06/28/2010 [facility] [address] [address] Nelson Chan MD [address] [address] Social History Tobacco Use Types Packs/Day Years Used Date Smoking Tobacco: Every Day Cigarettes 1 30 Alcohol Use Standard Drinks/Week Comments No 0 (1 standard drink = 0.6 oz pur e alcohol) Comments No Sex and Gender Information Value Date Recorded Sex Assigned at Female 05/29/2018 3:24 PM CDT Legal Sex Female 3:21 AM NURSE COMPANION Gender Identity Female 05/29/2018 3:24 PM CDT Sexual Orientation Straight 05/29/2018 3: 25 PM CDT documented as of this encounter Plan of Treatment Not on file documented as of this encounter Visit Diagnoses Not on filedocumented in this encounter Care Teams Toll Line Inspector Relationship Specialty Start Date End Date Nelson Chan MD [address] [address] PCP - General 06/18/04 Nelson Chan MD [address] [address] PCP - Assigned PCP 02/25/13 04/10/18 Nelson Chan MD [address] [place] [address] Assigned PCP 02/25/13 06/30/18 Nelson Chan MD [address] [place] [address] Assigned PCP 08/25/19 01/21/22 [place] [address] [place] [address] Assigned Sleep Provider 11/29/1912/20 Chris Mcdaniel PA-C [address] [facility] [address] Assigned Sleep Provider 04/22/20 Chris Mcdaniel PA-C [address] [facility] [address] [place] [address] Assigned Neuroscience Provider 04/22/20 02/11/22 Nelson Chan MD [address] [address] Assigned PCP 04/02/22 10/07/22 documented as of this encounter
--- OUTSIDE RECORDS SUMMARY | 2023-12-15 07:02 | XMS_ITS | Encounter Summary ---
Author Organization [place] Address [address] [facility] [place] [address] Care Team Providers Care Research Associate Name Role Phone Nelson Chan MD Primary Care Provider + [phone] Nelson Chan MD Unavailable [phone] Nelson Chan MD Unavailable +[phone] Nelson Chan MD Unavailable +[phone] Sage Kincaid MD Unavailable +[phone] Chris Mcdaniel PA-C Unavailable +[phone] Chris Mcdaniel PA-C Unavailable [phone] Nelson Chan MD Unavailable +[phone] Reason for Visit * Reason Onset Date Comments Refill Request 05/31/2015 Encounter Details Date Type Department Care Team (Late st Contact Info) Description 05/31/2015 [facility] Refill [facility] [address] [address] Nelson Chan MD [address] [id number] Refill Request Social History Tobacco Use Types Packs/Day Years Used Date Smoking Tobacco: Former Cigarettes 1 40 S tarted: 10/07/2012 Smokeless Tobacco: Never Alcohol Use Standard Drinks/Week Comments No 0 (1 standard drink = 0.6 oz pur e alcohol) Comments No Sex and Gender Information Value Date Recorded Sex Assigned at Female 05/29/2018 3:24 PM CDT Legal Sex Female 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 I asked for the wrong one. I need the starter pack. documented in this encounter Plan of Treatment Not on file documented as of this encounter Visit Diagnoses Diagnosis Tobacco abuse Tobacco use disorder documented in this encounter Care Teams Research Associate Relationship Specialty Start Date End Date Nelson Chan MD [address] [address] PCP - General 06/18/04 Nelson Chan MD [address] [place] [address] PCP - Assigned PCP 02/25/13 04/10/18 Nelson Chan MD [address] [place] [address] Assigned PCP 02/25/13 06/30/18 Nelson Chan MD [address] [place] [address] Assigned PCP 08/25/19 01/21/22 [place] [address] [place] [address] Assigned Sleep Provider 11/29/1912/20 Chris Mcdaniel PA-C [address] [place] [place] [address] Assigned Sleep Provider 04/22/20 Chris Mcdaniel PA-C [address] [address] Assigned Neuroscience Provider 04/22/20 02/11/22 Nelson Chan MD [address] [place] [address] Assigned PCP 04/02/22 10/07/22 documented as of this encounter
--- OUTSIDE RECORDS SUMMARY | 2023-12-15 07:02 | XMS_ITS | Encounter Summary ---
Author Organization [place] Address [address] [facility] [place] [address] Care Team Providers Care Family Literacy Coordinator Name Role Phone Nelson Chan MD Primary Care Provider + [phone] Nelson Chan MD Unavailable + [phone] Nelson Chan MD Unavailable + [phone] Nelson Chan MD Unavailable +[phone] Sage Kincaid MD Unavailable +[phone] Chris Mcdaniel PA-C Unavailable +[phone] Chris Mcdaniel PA-C Unavailable [phone] Nelson Chan MD Unavailable + [phone] Encounter Details Date Type Department Care Team (Late st Contact Info) Description 10/17/2006 [facility] [address] [address] Nelson Chan MD [address] [address] Social History Tobacco Use Types Packs/Day Years Used Date Smoking Tobacco: Every Day Cigarettes 1 30 Alcohol Use Standard Drinks/Week Comments No 0 (1 standard drink = 0.6 oz pur e alcohol) Comments No Sex and Gender Information Value Date Recorded Sex Assigned at Female 05/29/2018 3:24 PM CDT Legal Sex Female 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 Gender Identity Female 05/29/2018 3:24 PM CDT Sexual Orientation Straight 05/29/2018 3: 25 PM CDT documented as of this encounter Plan of Treatment Not on file documented as of this encounter Visit Diagnoses Not on filedocumented in this encounter Care Teams Family Literacy Coordinator Relationship Specialty Start Date End Date Nelson Chan MD [address] [address] PCP - General 06/18/04 Nelson Chan MD [address] [address] PCP - Assigned PCP 02/25/13 04/10/18 Nelson Chan MD [address] [place] [address] Assigned PCP 02/25/13 06/30/18 Nelson Chan MD [address] [place] [address] Assigned PCP 08/25/19 01/21/22 [place] [address] [place] [address] Assigned Sleep Provider 11/29/1912/20 Chris Mcdaniel PA-C [address] [place] [address] Assigned Sleep Provider 04/22/20 Chris Mcdaniel PA-C [address] [facility] [address] [place] [address] Assigned Neuroscience Provider 04/22/20 02/11/22 Nelson Chan MD [address] [address] Assigned PCP 04/02/22 10/07/22 documented as of this encounter
--- OUTSIDE RECORDS SUMMARY | 2023-12-15 07:02 | XMS_ITS | Encounter Summary ---
Author Organization [place] Address [address] [facility] [place] [address] Care Team Providers Care Leather Stretcher Name Role Phone Nelson Chan MD Primary Care Provider + [phone] Nelson Chan MD Unavailable +[phone] Nelson Chan MD Unavailable + [phone] Nelson Chan MD Unavailable +[phone] Sage Kincaid MD Unavailable +[phone] Chris Mcdaniel PA-C Unavailable +[phone] Chris Mcdaniel PA-C Unavailable [phone] Nelson Chan MD Unavailable +[phone] Reason for Visit * Reason Onset Date Comments other 03/27/2018 Ed with [employer] / dme supplier for bipap machine said their is an error in the perscription; please call back to advise at [phone] Encounter Details Date Type Department Care Team (Late st Contact Info) Description 03/27/2018 Telephone [facility] [address] [place] [address] [place] [address] [address] other (Ed with [employer] / dme supplier for bipap machine said their is an error in the perscription; please call back to advise at [phone]) Social History Tobacco Use Types Packs/Day Years [...] PM CDT Legal Sex Female 3:21 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 Not Applicable SOFTWARE ENGINEER documented in this encounter Plan of Treatment Not on file documented as of this encounter Visit Diagnoses Not on filedocumented in this encounter Care Teams Leather Stretcher Relationship Specialty Start Date End Date Nelson Chan MD [address] [place] [address] PCP - General 06/18/04 Nelson Chan MD [address] [place] [address] PCP - Assigned PCP 02/25/13 04/10/18 Nelson Chan MD [address] [place] [address] Assigned PCP 02/25/13 06/30/18 Nelson Chan MD [address] [place] [address] Assigned PCP 08/25/19 01/21/22 [place] [address] [place] [address] Assigned Sleep Provider 11/29/1912/20 Chris Mcdaniel PA-C [address] [place] [address] Assigned Sleep Provider 04/22/20 Chris Mcdaniel PA-C [address] [place] [address] Assigned Neuroscience Provider 04/22/20 02/11/22 Nelson Chan MD [address] [place] [address] Assigned PCP 04/02/22 10/07/22 documented as of this encounter
--- OUTSIDE RECORDS SUMMARY | 2023-12-15 07:02 | XMS_ITS | Encounter Summary ---
Author Organization [place] Address [address] [facility] [place] [address] Care Team Providers Care Community Leader Name Role Phone Nelson Chan MD Primary Care Provider + [phone] Nelson Chan MD Unavailable + [phone] Nelson Chan MD Unavailable + [phone] Nelson Chan MD Unavailable +[phone] Sage Kincaid MD Unavailable +[phone] Chris Mcdaniel PA-C Unavailable +[phone] Chris Mcdaniel PA-C Unavailable [phone] Nelson Chan MD Unavailable + [phone] Encounter Details Date Type Department Care Team (Late st Contact Info) Description 06/17/2011 [facility] [address] [place] [address] Teri Vasquez MD [address] [place] [id number] Social History Tobacco Use Types Packs/Day Years Used Date Smoking Tobacco: Every Day Cigarettes 1 40 Smokeless Tobacco: Never Alcohol Use Standard Drinks/Week Comments No 0 (1 standard drink = 0.6 oz pur e alcohol) Comments No Sex and Gender Information Value Date Recorded Sex Assigned at Female 05/29/2018 3:24 PM CDT Legal Sex Female 3: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 ROVER 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 Gender Identity Female 05/29/2018 3:24 PM CDT Sexual Orientation Straight 05/29/2018 3: 25 PM CDT documented as of this encounter Plan of Treatment Not on file documented as of this encounter Visit Diagnoses Not on filedocumented in this encounter Care Teams Community Leader Relationship Specialty Start Date End Date Nelson Chan MD [address] [address] PCP - General 06/18/04 Nelson Chan MD [address] [address] PCP - Assigned PCP 02/25/13 04/10/18 Nelson Chan MD [address] [address] Assigned PCP 02/25/13 06/30/18 Nelson Chan MD [address] [address] Assigned PCP 08/25/19 01/21/22 [place] [address] [place] [address] Assigned Sleep Provider 11/29/1912/20 Chris Mcdaniel PA-C [address] [place] [address] [place] [address] Assigned Sleep Provider 04/22/20 Chris Mcdaniel PA-C [address] [facility] [address] [place] [address] Assigned Neuroscience Provider 04/22/20 02/11/22 Nelson Chan MD [address] [address] Assigned PCP 04/02/22 10/07/22 documented as of this encounter
--- OUTSIDE RECORDS SUMMARY | 2023-12-15 07:02 | XMS_ITS | Encounter Summary ---
Author Organization [place] Address [address] [facility] [address] Care Team Providers Care Brushing Machine Operator Name Role Phone Nelson Chan MD Primary Care Provider + [phone] Nelson Chan MD Unavailable +[phone] Nelson Chan MD Unavailable +[phone] Nelson Chan MD Unavailable +[phone] Sage Kincaid MD Unavailable [phone] Chris Mcdaniel PA-C Unavailable +[phone] Chris Mcdaniel PA-C Unavailable [phone] Nelson Chan MD Unavailable +[phone] Encounter Details Date Type Department Care Team (Late st Contact Info) Description 02/13/2014 [facility] [address] [address] Nelson Chan MD [address] [id number] Social History Tobacco Use Types Packs/Day Years Used Date Smoking Tobacco: Former Cigarettes 1 40 S tarted: 10/07/2012 Smokeless Tobacco: Never Alcohol Use Standard Drinks/Week Comments No 0 (1 standard drink = 0.6 oz pur e alcohol) Comments No Sex and Gender Information Value Date Recorded Sex Assigned at Female 05/29/2018 3:24 PM CDT Legal Sex Female 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 Gender Identity Female 05/29/2018 3:24 PM CDT Sexual Orientation Straight 05/29/2018 3: 25 PM CDT documented as of this encounter Plan of Treatment Not on file documented as of this encounter Visit Diagnoses Not on filedocumented in this encounter Care Teams Brushing Machine Operator Relationship Specialty Start Date End Date Nelson Chan MD [address] [place] [address] PCP - General 06/18/04 Nelson Chan MD [address] [place] [address] PCP - Assigned PCP 02/25/13 04/10/18 Nelson Chan MD [address] [place] [address] Assigned PCP 02/25/13 06/30/18 Nelson Chan MD [address] [place] [address] Assigned PCP 08/25/19 01/21/22 [place] [address] [place] [address] Assigned Sleep Provider 11/29/1912/20 Chris Mcdaniel PA-C [address] [place] [address] Assigned Sleep Provider 04/22/20 Chris Mcdaniel PA-C [address] [address] Assigned Neuroscience Provider 04/22/20 02/11/22 Nelson Chan MD [address] [address] Assigned PCP 04/02/22 10/07/22 documented as of this encounter
[2023-12-15 13:52] VITALS: BMI 58.3
== END 2023-12-15 07:00 | disposition home or self-care (01) ==
LOC: NUTRITION 06:59
PROVIDERS: PCP Physician Assistant Medical; Visit Provider Dietitian, Registered
DX: E66.9 Obesity, unspecified (principal); Z71.3 Dietary counseling and surveillance
CPT/HCPCS: G0463

== ENCOUNTER 2024-08-23 10:02 | Outpatient (CLI) | payer MEDICARE, SELFPAY | END 2024-08-23 10:03 | disposition home or self-care (01) | LOC: NFLDREF 08-25 05:53 | PROVIDERS: PCP Physician Assistant Medical; Referring Provider Physician Assistant Medical; Visit Provider Family Medicine | DX: M54.9 Dorsalgia, unspecified (principal) | CPT/HCPCS: 87086 ==

== ENCOUNTER 2024-09-26 12:35 | Outpatient (CLI) | payer MEDICARE, SELFPAY | END 2024-09-26 12:36 | disposition home or self-care (01) | LOC: NFLDUCREF 12:35 | PROVIDERS: PCP Physician Assistant Medical; Visit Provider Physician Assistant Surgical | DX: R35.89 Other polyuria (principal) | CPT/HCPCS: 87109 ==

== ENCOUNTER 2024-10-02 11:00 | Outpatient (RCR) | payer MEDICARE, SELFPAY ==
--- NOTE | 2024-08-22 15:48 | PT.OPEX ---
PT [place] Outpatient Eval PT [facility] Outpatient Eval Start: 08/22/24 11:22 Freq: Status: Active Protocol: Document 08/22/24 11:23 CRP (Rec: 08/22/24 15:46 CRP [id number]) E-signed By Chago Haley PT Physical Therapy Outpatient Evaluation Insurance Information Recert Due Date 11/20/24 Insurance Name Medicare B,are Medical Diagnosis Low back pain Referring MD Thea Huggins PA-C Subjective Subjective Pt has a long hx of LBP. Week ago last Monday she had a severe onset of R sided LBP. No known reason. Had this pain in February as well that got better after one day. This time it was not calming down. Monday went to the hospital for the pain. Was given steroid pack initially that she is done with. Monday was given a muscle relaxer and she is done with that as well. As of now she is actually feeling pretty good but at night it will still be painful. No LE pain. No new onset of numbness or tingling. Has had long hx of feet tingling. Pain Comments 03/18 Current Work Status Retired Objective Other/Pertinent Posture: passive vs active ext pattern Objective Trunk ROM: Flex min dec with pulling, Ext mod dec with pain, R SB mod dec with pain, L SB min decrease, Bilat rot min dec Hip ROM - shows limitation secondary to back and bilat knee pain Unable to tolerate lying down sec to LBP MMT: Myotomes WNL Abdominal strength - fair Palpation: Myofascial restriction noted bilat lumbar spine - loss of lumbar flex mobility Adverse neurodynamics bilat Assessment Assessment/ Pt presents to the clinic with signs and sxs consistent Impression with lumbar spine DDD/DJD and resulting facet mediated pain. Pt demonstrates a flexion exercise bias. Skilled PT is necessary to incorporate ther ex, nm arianne , manual therapy and pt education to decrease pain and improve functional mobility. 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 Pt will be independent with HEP in 8 weeks. Goals 2. Pt will stand to do dishes with 80% decrease in pain in 10 weeks. 3. Pt will walk for exer x 15 minutes without complaints in 12 weeks. Coordination/ Referral Source Communication With Treatment Plan/ Manual Therapy,Neuromuscular Re-ed,Self-Care/Home Direct Interventions Management,Therapeutic Activities,Therapeutic Exercises Frequency/Duration 1x/w to PRN for 12 weeks Patient Will Be Completion of LTG(s),Skills Plateau,Independent w/HEP, Discharged From Independently Progressing Therapy Evaluation Billing Untimed Code 35 Treatment Minutes Complexity Moderate Certification Information Initial 08/22/24 Certification Date Ending Certification 11/20/24 Date Provider Signature Yes Required Provider Signature POC & Medical Necessity Shows Agreement With Physician NPI Number Write NPI# Here Physician Comment/ : Change Physician Signature Please Sign/Date Here & Date Requested
--- NOTE | 2024-09-04 11:49 | OT.OPOE ---
OT Outpatient Ortho Eval OT Outpatient Ortho Eval* Start: 09/04/24 10:31 Freq: Status: Active Protocol: Document 09/04/24 10:31 CSS (Rec: 09/04/24 11:48 CSS [id number]) E-signed By Gale Aguillon, OTR/L OT OP Ortho Eval Details Complexity Complexity Low Insurance Information Insurance [employer] Information Outpatient History/Precautions Current Condition/Medical Diagnosis Referring Provider Thea Huggins PA-C Medical Diagnoses R20.2- Paresthesia of skin Treatment Diagnosis R20.2- paresthesia of skin Medical Conditions Arthritis Medical/Functional History Prior Level of indep with ADLs/IADLs Function/Mobility Social History Employment Status Retired Hobbies [employer], puzzles Ortho Subjective Subjective Subjective Pt reports she has intermittent L hand numbness/ tingling. Pt notes tingling/numbness in day and sometimes when sleeping. Pt notes numbness has occurred for last several months; pt notes it is not getting worse. Pt states L 4th and 5th digit are tingling; she states its more annoying than anything. Pt notes she has been dropping items due to this. Pt does not feel hand is getting weak. Pt notes approx 3 years ago she had nerve surgery for due to nerve impingement on L arm; she is unsure which nerve was involved. Pain Assessment Pain Pain No Range of Motion and Strength Shoulder Range of Motion and Strength Shoulder Range of B shoulders WNL Motion and Strength Elbow/Forearm Range of Motion and Strength Elbow/Forearm Range B elbow/forearms WNL of Motion and Strength Wrist Range of Motion and Strength Wrist Range of B wrists WNL Motion and Strength Hand/Finger/Thumb Range of Motion and Strength Hand/Finger/Thumb B hands: WNL Range of Motion and Strength Hand Pinch/Drawing Tracer Strength Hand Pinch/Drawing Tracer Strength Hand Pinch/Drawing Tracer Left Hand,Right Hand Strength Left Hand Drawing Tracer Strength 50 Position 1 in Elbow Flexion (lbs) Lateral Pinch 12 Strength (lbs) Three Point Pinch ( 9 lbs) Right Hand Drawing Tracer Strength 46 Position 1 in Elbow Flexion (lbs) Lateral Pinch 14 Strength (lbs) Three Point Pinch ( 10 lbs) OT Objective Data Hand Hand Dominance Right Sensation Sensation Assessment intermittent numbness/tingling in L hand, specifically Summary Comments digits 4 and 5 Upper Extremity Special Tests Ulnar Nerve Froment's Sign Negative Left OT Problems Problems Problems Sensory Sensitivity,Lifting,Gripping,Pinching Other Problems Sleeping Patient Potential Good Assessment Assessment Assessment Pt is a 68 year old female who has been experiencing ongoing numbness/tingling in L hand, specificallly in digits 4 and 5. Pt notes she had nerve impingement 3 years ago with surgery, however she is unable to remember which nerve. Pt notes because of symptoms, she notes difficulty with gripping, pinching and lifting and specifically with sleeping. Pt would benefit from skilled OT for education on UE positioning to avoid nerve impingement, edema reduction and never glide stretches. Occupational Therapy Treatment Plan - OP Potential Rehabilitation Good Potential Set Goals Goals Set with Yes Patient Goals Goals Goals to be met by 11/13/24: 1) Pt will note no numbness/tingling sensation in L hand for 2 consistent sessions or more. 2) Pt will be able to verbalize the pieces of AE or compensatory strategies to help with positioning LUE to avoid ulnar nerve impingement. 3) Pt will verbalize compliance of HEP in order to progress towards goals. Treatment Plan Treatment Plan Evaluation,Edema Control,Iontophoresis with Dexamethasone Sodium Phosphate 1 mL (4mg per mL),Manual Therapy,Splinting,Ultrasound,Therapeutic Exercise, Therapeutic Activities,Self Care/Home Management, Education Expected Frequency 1-2x Week Expected Duration 8-10 Weeks Home Program Home Program Home Program Initiated Home Program education on positioning when holding phone or using Specifics computer, ulnar nerve glides, and wrist stretches Certification Certification Statement I Certify That: Therapy Services Provided,Therapy Plan Established, Therapy Plan Reviewed Certification Information Clinic ID # [id number] Initial 09/04/24 Certification Date Recertification Due 11/13/24 Date Provider Signature Yes Required Provider Signature POC & Medical Necessity Shows Agreement With Physician NPI Number Write NPI# Here Physician Comment/ Comment or Changes Change Physician Signature Please Sign/Date Here & Date Requested
--- NOTE | 2024-11-28 14:54 | REH.OT ---
D/C pt from OT. Pt has minimal progress with OT and does not want to return. Pt is working with ortho for ongoing nerve pain; EMG scheduled and pending on results will determine intervention.
== END 2025-01-29 08:56 | disposition home or self-care (01) ==
PROVIDERS: PCP Physician Assistant Medical; Visit Provider Physician Assistant Medical
DX: M54.59 Other low back pain (principal); R20.2 Paresthesia of skin; Z51.89 Encounter for other specified aftercare
CPT/HCPCS: 97035; 97110; 97162; 97165; 97530; 97535; X5282